=== PATIENT | female | born 1975 | race Caucasian/White ===

== ENCOUNTER 2017-10-21 09:41 | Emergency (ER) | payer MEDICAID, SELFPAY ==
[2017-10-21] VITALS (44 sets, daily range): BP systolic 125–146; BP diastolic 72–86; PULSE 48–83; RESP 8–23; TEMP 37; O2SAT 91–99
--- NOTE | 2017-10-21 10:18 | W.ED.GENAD ---
Discharge Plan Discharge Details Chief Complaint: Cellulitis Clinical Impression: Cellulitis of breast, Chest pain, Hypothyroidism Reason For Visit: CHEST PAIN/SWOLLEN BREAST Primary Care Provider: Roxanne Taveras V ED Provider: Karyn Bullock Disposition Patient Disposition: HOME Condition: Stable Home Meds and New Rx's Prescriptions: New levothyroxine 112 mcg capsule 112 mcg PO DAILY Qty: 30 RF: 0 dicloxacillin 500 mg capsule 500 mg PO Q6H 10 Days Qty: 40 RF: 0 Discontinued levothyroxine 112 MCG tablet 112 mcg PO DAILY RF: 0 No Action levonorgestrel [Mirena] 1 EACH intrauterine device 1 ea Intrauterine ONCE Qty: 1 RF: 0 Discharge Instructions Instructions: Levothyroxine (By mouth), Dicloxacillin (By mouth), Chest Pain (ED), Cellulitis (ED), Hypothyroidism (ED) Additional Instructions: Please return immediately to the emergency department if you develop any new or worsening symptoms or if he become otherwise concerned. It is extremely important that you are seen in follow-up by her primary care doctor tomorrow, for your chest pain to schedule a stress test for within the next 72 hours, for the skin infection of the breast, and for your hypothyroidism. Referrals: Roxanne Taveras MD [Primary Care Provider] - Discharge Data Discharge Date/Time-TO BE ENTERED AT DEPARTURE: 10/21/17 15:48 Medical Decision Making MDM Narrative Medical decision making narrative: Radha Hernandez is a 42 y/o woman with history of hypothyroidism presenting to the emergency department with right-sided breast pain for 1 week also with rash, worse last night. On exam patient has tender erythema circumferentially around the nipple of the right breast X, extending 10 cm from the nipple. There is mild induration surrounding the nipple but there is no fluctuance. There is no streaking. Patient without other rash. Systemically well and nontoxic appearing. Concern for breast cellulitis. Exam/history not consistent with sepsis. Plan for screening labs, dicloxacillin. EKG ordered from triage. Patient with elevated TSH, mild leukocytosis. On reevaluation patient reports to me that in addition to pain in the breast, she is also having chest pain. She reports that she has pain along that left parasternal border. Patient reports that over the past year she has had similar pain intermittently. She was told in the past that she should have a stress test for this by her PCP, but has not followed up. Patient reports that over the past month or 2 she has not had any of this left-sided chest pain, until approximately 1 week ago and the breast pain started. Patient reports the pain has been constant since it started 1 week ago, and never entirely remits. She reports that she has had constant pain in this area since she woke up this morning (greater than 4 hours) patient reports that the pain is improved when she pushes on it, and is somewhat worsened with change in position or exertion. Doubt ACS given change in position reproduces pain and when patient palpates the area her pain improves. Suspect musculoskeletal pain. Plan for repeat EKG, troponin, d-dimer. Trop okay. Repeat EKG unchanged. A diagnosis of pulmonary embolism was considered. ?Low clinical suspicion. ?D-Dimer negative. ?A low clinical suspicion with a negative D-Dimer makes the risk of PE <2% and I doubt PE as a disease process in this patient. Pt reports that she has not had levothyroxine in several months as she has had trouble getting the prescription refilled by her PCP. Plan for outpt f/u with PCP for further eval and skin check (to be seen here in ED for repeat eval of cellulitis if she is not seen by PCP within that time frame) and also for scheduling of stress test for this week. Rx for levothyroxine. Lengthy discussion with Pt re: RTED precautions and importance of outpt f/u as above. She is amenable to the plan. Medical Records Medical records reviewed: Yes I reviewed the patient's medical records. Lab Data Lab results reviewed: Yes I reviewed the patient's lab results. ECG Data Attestation: I personally reviewed and interpreted this ECG (s) as follows: Interpretation: EKG #1 shows normal sinus rhythm at 65 with normal axis, poor R-wave progression seen on prior 03/07, no STEMI. Nondiagnostic EKG EKG #2 shows sinus bradycardia at 54 with normal axis, no change from prior. No STEMI EKG #3 shows normal sinus rhythm at 60 with normal axis, no change from prior. No STEMI HPI - General Adult General Date/Time Provider Initiated Documentation: 10/21/17 10:07. Limitations to Documentation: no limitations. Information obtained by: patient and RN notes reviewed. HPI Narrative-FOR DICTATION ONLY HPI Narrative: Radha Hernandez is a 42-year-old woman with history of hypothyroidism presented to the emergency department with breast pain and rash. Patient reports that approximate 1 week ago she noticed pain in her left breast around her nipple. At that time she thought that she had possibly hit her breast against something while at work, although there was no certain inciting factor. Patient reports that she noticed that her pain seem much worse yesterday with redness around the nipple. Pain and redness progressed today. She denies any drainage from the nipple. Left breast is asymptomatic. No chest pain other than pain in the right breast around the and at the nipple. No nipple discharge. She feels otherwise in her usual state of health with no other pain, no SOB, no fever, no vomiting/diarrhea no other rash, normal appetite, no recent illnesses. Related Data Home Medications Medication Instructions Recorded Confirmed levonorgestrel [Mirena] 1 ea INTRAUTERINE ONCE #1 implant 12/27/14 10/22/17 Previous Rx's Medication Instructions Recorded dicloxacillin 500 mg PO Q6H 10 Days #40 cap 10/21/17 levothyroxine 112 mcg PO DAILY #30 cap 10/21/17 Allergies Allergy/AdvReac Type Severity Reaction Status Date / Time nicotine [From [facility]] AdvReac Intermediate Nightmares Unverified 10/21/17 09:51 General Stated Complaint: Cellulitis ADRIEN: 3 Review of Systems Constitutional Denies chills and Denies fever(s) Eyes Patient Denies eye pain ENT Denies dental pain, Denies facial pain and Denies sore throat Cardiovascular Denies chest pain, Denies edema, Denies leg edema and Denies dyspnea Respiratory Denies cough and Denies dyspnea Gastrointestinal Denies abdominal pain, Denies diarrhea, Denies nausea and Denies vomiting Musculoskeletal Denies myalgias, Denies arthralgias, Denies numbness and Denies tingling Integumentary/Breasts Reports rash (see HPI) Neurologic Denies numbness and Denies tingling Endocrine Denies polyphagia and Denies polydipsia PFSH Family History Mother Heart disease Father Heart disease Hyperlipidemia Grandfather Personal history of malignant neoplasm Maternal Aunt Personal history of malignant neoplasm Medical History DJD (degenerative joint disease) of cervical spine Hyperlipemia Hypothyroid Obesity Social History Smoking/Tobacco Use Status: Current every day alcohol intake: never substance use type: does not use Exam Const General: cooperative, not in acute distress and other (Nontoxic, pleasant, conversing normally) Orientation: alert [facility] Head: normal to inspection, normocephalic and atraumatic Face and sinus: normal facial exam Mouth: moist mucous membranes Eyes Conjunctivae: conjunctivae normal Sclera: sclerae normal Pupils: pupil size (3 mm bilaterally) Neck Neck: normal visual inspection and trachea midline Chest Breast palpation: other (Right breast with circumferential erythema surrounding the nipple, radius approximately 10 cm. Mild induration surrounding the nipple without fluctuance. There is no drainage from the nipple. Exam of the left breast is normal.) Resp Effort & Inspection: normal respiratory effort and no respiratory distress Auscultation: clear to auscultation bilaterally Cardio Rate: regular rate Rhythm: regular rhythm Heart Sounds: no murmurs GI Inspection: non-distended Palpation: soft and nontender Skin General skin exam: no rashes or lesions noted (Please see chest exam otherwise no rash) Neuro General: alert and other (Normal tone, grossly nonfocal) Psych Appearance: grossly normal Mood: congruent mood Affect: normal affect Course Vital Signs Temperature 37.0 C 10/21/17 09:46 Pulse 70 10/21/17 09:46 Respiratory Rate 14 10/21/17 09:46 Blood Pressure 139/76 10/21/17 09:46 Pulse Oximetry 99 10/21/17 09:46 Temperature 37.0 C 10/21/17 09:46 Pulse 70 10/21/17 09:46 Respiratory Rate 14 10/21/17 09:46 Blood Pressure 139/76 10/21/17 09:46 Pulse Oximetry 99 10/21/17 09:46
--- NOTE | 2017-10-21 10:30 | ED.GENADUL_ITS ---
Discharge Plan Discharge Details Chief Complaint: Cellulitis Clinical Impression: Cellulitis of breast, Chest pain, Hypothyroidism Reason For Visit: CHEST PAIN/SWOLLEN BREAST Primary Care Provider: Roxanne Taveras V ED Provider: Karyn Bullock Disposition Patient Disposition: HOME Condition: Stable Home Meds and New Rx's Prescriptions: New levothyroxine 112 mcg capsule 112 mcg PO DAILY Qty: 30 RF: 0 dicloxacillin 500 mg capsule 500 mg PO Q6H 10 Days Qty: 40 RF: 0 Discontinued levothyroxine 112 MCG tablet 112 mcg PO DAILY RF: 0 No Action levonorgestrel [Mirena] 1 EACH intrauterine device 1 ea Intrauterine ONCE Qty: 1 RF: 0 Discharge Instructions Instructions: Levothyroxine (By mouth), Dicloxacillin (By mouth), Chest Pain ( ED), Cellulitis (ED), Hypothyroidism (ED) Additional Instructions: Please return immediately to the emergency department if you develop any new or worsening symptoms or if he become otherwise concerned. It is extremely important that you are seen in follow-up by her primary care doctor tomorrow, for your chest pain to schedule a stress test for within the next 72 hours, for the skin infection of the breast, and for your hypothyroidism. Referrals: Roxanne Taveras MD [Primary Care Provider] - Discharge Data Discharge Date/Time-TO BE ENTERED AT DEPARTURE: 10/21/17 15:48 Medical Decision Making MDM Narrative Medical decision making narrative: Radha Hernandez is a 42 y/o woman with history of hypothyroidism presenting to the emergency department with right- sided breast pain for 1 week also with rash, worse last night. On exam patient has tender erythema circumferentially around the nipple of the right breast X, extending 10 cm from the nipple. There is mild induration surrounding the nipple but there is no fluctuance. There is no streaking. Patient without other rash. Systemically well and nontoxic appearing. Concern for breast cellulitis. Exam/history not consistent with sepsis. Plan for screening labs, dicloxacillin. EKG ordered from triage. Patient with elevated TSH, mild leukocytosis. On reevaluation patient reports to me that in addition to pain in the breast, she is also having chest pain. She reports that she has pain along that left parasternal border. Patient reports that over the past year she has had similar pain intermittently. She was told in the past that she should have a stress test for this by her PCP, but has not followed up. Patient reports that over the past month or 2 she has not had any of this left-sided chest pain, until approximately 1 week ago and the breast pain started. Patient reports the pain has been constant since it started 1 week ago, and never entirely remits. She reports that she has had constant pain in this area since she woke up this morning (greater than 4 hours ) patient reports that the pain is improved when she pushes on it, and is somewhat worsened with change in position or exertion. Doubt ACS given change in position reproduces pain and when patient palpates the area her pain improves. Suspect musculoskeletal pain. Plan for repeat EKG, troponin, d-dimer. Trop okay. Repeat EKG unchanged. A diagnosis of pulmonary embolism was considered. ?Low clinical suspicion. ?D-Dimer negative. ?A low clinical suspicion with a negative D-Dimer makes the risk of PE <2% and I doubt PE as a disease process in this patient. Pt reports that she has not had levothyroxine in several months as she has had trouble getting the prescription refilled by her PCP. Plan for outpt f/u with PCP for further eval and skin check (to be seen here in ED for repeat eval of cellulitis if she is not seen by PCP within that time frame) and also for scheduling of stress test for this week. Rx for levothyroxine. Lengthy discussion with Pt re: RTED precautions and importance of outpt f/u as above. She is amenable to the plan. Medical Records Medical records reviewed: Yes I reviewed the patient's medical records. Lab Data Lab results reviewed: Yes I reviewed the patient's lab results. ECG Data Attestation: I personally reviewed and interpreted this ECG (s) as follows: Interpretation: EKG #1 shows normal sinus rhythm at 65 with normal axis, poor R- wave progression seen on prior 03/07, no STEMI. Nondiagnostic EKG EKG #2 shows sinus bradycardia at 54 with normal axis, no change from prior. No STEMI EKG #3 shows normal sinus rhythm at 60 with normal axis, no change from prior. No STEMI HPI - General Adult General Date/Time Provider Initiated Documentation: 10/21/17 10:07 . Limitations to Documentation: no limitations . Information obtained by: patient and RN notes reviewed . HPI Narrative-FOR DICTATION ONLY HPI Narrative: Radha Hernandez is a 42-year-old woman with history of hypothyroidism presented to the emergency department with breast pain and rash. Patient reports that approximate 1 week ago she noticed pain in her left breast around her nipple. At that time she thought that she had possibly hit her breast against something while at work, although there was no certain inciting factor. Patient reports that she noticed that her pain seem much worse yesterday with redness around the nipple. Pain and redness progressed today. She denies any drainage from the nipple. Left breast is asymptomatic. No chest pain other than pain in the right breast around the and at the nipple. No nipple discharge. She feels otherwise in her usual state of health with no other pain, no SOB, no fever, no vomiting/diarrhea no other rash, normal appetite, no recent illnesses. Related Data Home Medications Medication Instructions Recorded Confirmed levonorgestrel [Mirena] 1 ea INTRAUTERINE ONCE #1 implant 12/27/14 10/22/17 Previous Rx's Medication Instructions Recorded dicloxacillin 500 mg PO Q6H 10 Days #40 cap 10/21/17 levothyroxine 112 mcg PO DAILY #30 cap 10/21/17 Allergies Allergy/AdvReac Type Severity Reaction Status Date / Time nicotine [From [facility]] AdvReac Intermediate Nightmares Unverified 10/21/17 09:51 General Stated Complaint: Cellulitis ADRIEN: 3 Review of Systems Constitutional Denies chills and Denies fever(s) Eyes Patient Denies eye pain ENT Denies dental pain, Denies facial pain and Denies sore throat Cardiovascular Denies chest pain, Denies edema, Denies leg edema and Denies dyspnea Respiratory Denies cough and Denies dyspnea Gastrointestinal Denies abdominal pain, Denies diarrhea, Denies nausea and Denies vomiting Musculoskeletal Denies myalgias, Denies arthralgias, Denies numbness and Denies tingling Integumentary/Breasts Reports rash (see HPI) Neurologic Denies numbness and Denies tingling Endocrine Denies polyphagia and Denies polydipsia PFSH Family History Mother Heart disease Father Heart disease Hyperlipidemia Grandfather Personal history of malignant neoplasm Maternal Aunt Personal history of malignant neoplasm Medical History DJD (degenerative joint disease) of cervical spine Hyperlipemia Hypothyroid Obesity Social History Smoking/Tobacco Use Status: Current every day alcohol intake: never substance use type: does not use Exam Const General: cooperative, not in acute distress and other (Nontoxic, pleasant, conversing normally) Orientation: alert [facility] Head: normal to inspection, normocephalic and atraumatic Face and sinus: normal facial exam Mouth: moist mucous membranes Eyes Conjunctivae: conjunctivae normal Sclera: sclerae normal Pupils: pupil size (3 mm bilaterally) Neck Neck: normal visual inspection and trachea midline Chest Breast palpation: other (Right breast with circumferential erythema surrounding the nipple, radius approximately 10 cm. Mild induration surrounding the nipple without fluctuance. There is no drainage from the nipple. Exam of the left breast is normal.) Resp Effort & Inspection: normal respiratory effort and no respiratory distress Auscultation: clear to auscultation bilaterally Cardio Rate: regular rate Rhythm: regular rhythm Heart Sounds: no murmurs GI Inspection: non-distended Palpation: soft and nontender Skin General skin exam: no rashes or lesions noted (Please see chest exam otherwise no rash) Neuro General: alert and other (Normal tone, grossly nonfocal) Psych Appearance: grossly normal Mood: congruent mood Affect: normal affect Course Vital Signs Temperature 37.0 C 10/21/17 09:46 Pulse 70 10/21/17 09:46 Respiratory Rate 14 10/21/17 09:46 Blood Pressure 139/76 10/21/17 09:46 Pulse Oximetry 99 10/21/17 09:46 Temperature 37.0 C 10/21/17 09:46 Pulse 70 10/21/17 09:46 Respiratory Rate 14 10/21/17 09:46 Blood Pressure 139/76 10/21/17 09:46 Pulse Oximetry 99 10/21/17 09:46
[2017-10-21 10:44] LABS: Abs Immature Grans 0.02 k/cumm (0.0-0.09); Absolute Basophil Count 0.04 k/cumm (0.0-0.2); Absolute Monocyte Count 0.72 k/cumm (0.11-0.7); Absolute Neutrophil Count 8.26 k/cumm (1.2-6.7); Basophils % 0.4; Eosinophils % 0.9; HCT 44.6 % (36.0-46.0); HGB 15.1 g/dL (12.0-15.5); Immature Grans % 0.2; Lymphocytes % 18.2; Mean Corp. HGB Concentration 33.9 g/dL (32.0-36.0); Mean Corpuscular Hemoglobin 31.8 pg (27.0-33.0); Mean Corpuscular Volume 93.9 fL (80-95); Mean Platelet Volume 9.3 fL (8.0-11.0); Monocytes % 6.4; Neutrophils % 73.9; Platelet Count 304 x1000/uL (130-400); RBC 4.75 m/cumm (4.00-5.20); RBC Distribution Width 14.3 % (11.7-14.6); White Blood Cell Count 11.18 k/cumm (4.4-10.8)
[2017-10-21 10:45] LABS: Absolute Lymphocyte Count 2.03 k/cumm (1.2-3.4)
[2017-10-21 11:05] LABS: ALT 22 U/L (12-78); AST 15 U/L (15-37); Albumin 3.6 g/dL (3.4-5.0); Alkaline Phosphatase 66 U/L (46-116); Anion Gap 7.3 mmol/L (3-11); BUN 10 mg/dL (7-18); Bilirubin, Total 0.7 mg/dL (0.2-1.0); CO2 27.7 mmol/L (21.0-32.0); CREATININE 1.15 mg/dL (0.55-1.02); Calcium 8.3 mg/dL (8.5-10.1); Chloride 102 mmol/L (98-107); Glucose 96 mg/dL (70-100); Potassium 3.6 mmol/L (3.5-5.1); Sodium 137 mmol/L (136-145); TSH (W/Ref FT4) 92.44 uIU/mL (0.358-3.74)
[2017-10-21 11:24] LABS: FREE T4 0.39 ng/dL (0.76-1.46)
[2017-10-21] MEDS: Aspirin 81 MG CHEW 324 MG CH (13:06)
[2017-10-21 13:09] LABS: Troponin I < 0.02 ng/mL (0.00-0.06)
[2017-10-21 13:21] LABS: D-Dimer 486 ng/mlFEU (<500)
--- NOTE | 2017-10-21 13:51 | DI.RAD_ITS ---
SYMPTOMS/DIAGNOSIS: CHEST PAIN, SWOLLEN BREAST PA AND LATERAL CHEST: Comparison is made with March,. A pectus excavatum deformity is again noted. The heart size is normal. The lungs are clear. No infiltrate, effusion or pneumothorax is seen. IMPRESSION: Negative chest x-ray.
--- NOTE | 2017-10-21 14:44 | DI.VRAD_ITS ---
EXAM: XR Chest, 2 Views CLINICAL HISTORY: 42 years old, female; Signs and symptoms; Other: Chest pain TECHNIQUE: Frontal and lateral views of the chest. COMPARISON: CR - CHEST 2 VIEWS PA,LAT 03/28/2016 10:14 AM FINDINGS: The lung mcnamara are clear bilaterally. The cardiomediastinal silhouette is within normal limits. The costophrenic angles are sharp. The bony structures are unremarkable with the exception of a mild pectus excavatum. IMPRESSION: No definite evidence of acute cardiopulmonary disease. Dictated and Authenticated by: Darnell Medina MD. Ordering:JERZY YORK MD
--- NOTE | 2017-10-21 15:30 | PDOC.ERCMPRO ---
Care Management Progress Note 10/21-Dr. Karyn Bullock requested assistance with a PCP (Darcy) f/u tomorrow, 10/22/17, for breast infections and chest pain. Patient will need stress test ordered. Patient does not have a phone. This CM met with Radha who states that she will call [facility] tomorrow at 9 am for an appt. Referral with all the above information was faxed to [facility] today.
--- NOTE | 2017-10-21 15:35 | CMPROGNOTE_ITS ---
Care Management Progress Note 10/21-Dr. Karyn Bullock requested assistance with a PCP (Darcy) f/u tomorrow, , for breast infections and chest pain. Patient will need stress test ordered. Patient does not have a phone. This CM met with Radha who states that she will call [facility] tomorrow at 9 am for an appt. Referral with all the above information was faxed to [facility] today.
== END 2017-10-21 15:48 | disposition home or self-care (01) ==
PROVIDERS: Emergency Provider Student in an Organized Health Care Education/Training Program; PCP Family Medicine
DX: N61.0 Mastitis without abscess (principal); R07.9 Chest pain, unspecified; E03.9 Hypothyroidism, unspecified
CPT/HCPCS: 36415; 80053; 81025; 87040; 93005; 99285; 71046; 84439; 84443; 84484; 85025; 85379; 93010

== ENCOUNTER 2017-10-22 21:07 | Observation (INO) | payer MEDICAID, SELFPAY ==
[2017-10-22 21:11] VITALS: BP 137/86; PULSE 85; RESP 16; TEMP 36.6; O2SAT 98
[2017-10-22] MEDS: Ketorolac 30 MG/ML VIAL IVP (21:30)
[2017-10-22] MEDS: MORPHine 10 MG/ML VIAL 4 MG IVP (21:30)
[2017-10-22] MEDS: Acetaminophen 500 MG TAB 1000 MG PO (21:30)
[2017-10-22 21:46] LABS: Abs Immature Grans 0.03 k/cumm (0.0-0.09); Absolute Lymphocyte Count 2.96 k/cumm (1.2-3.4); Absolute Monocyte Count 0.59 k/cumm (0.11-0.7); Absolute Neutrophil Count 10.55 k/cumm (1.2-6.7); Basophils % 0.4; Eosinophils % 0.7; HGB 14.9 g/dL (12.0-15.5); Immature Grans % 0.2; Lactate-non-spesis 1.2 mmol/L (0.6-1.4); Lymphocytes % 20.7; Mean Corp. HGB Concentration 33.9 g/dL (32.0-36.0); Mean Corpuscular Hemoglobin 31.2 pg (27.0-33.0); Mean Corpuscular Volume 92.2 fL (80-95); Mean Platelet Volume 9.6 fL (8.0-11.0); Monocytes % 4.1; Neutrophils % 73.9; Platelet Count 341 x1000/uL (130-400); RBC 4.77 m/cumm (4.00-5.20); RBC Distribution Width 14.3 % (11.7-14.6); White Blood Cell Count 14.28 k/cumm (4.4-10.8)
[2017-10-22 21:47] LABS: Absolute Basophil Count 0.06 k/cumm (0.0-0.2)
[2017-10-22 22:02] LABS: ALT 20 U/L (12-78); AST 25 U/L (15-37); Alkaline Phosphatase 72 U/L (46-116); Anion Gap 2.5 mmol/L (3-11); BUN 8 mg/dL (7-18); Bilirubin, Total 1.1 mg/dL (0.2-1.0); CO2 30.5 mmol/L (21.0-32.0); CREATININE 0.96 mg/dL (0.55-1.02); Calcium 9.1 mg/dL (8.5-10.1); Chloride 100 mmol/L (98-107); Glucose 84 mg/dL (70-100); Potassium 3.8 mmol/L (3.5-5.1); Sodium 133 mmol/L (136-145); Total Protein 8.1 g/dL (6.4-8.2)
[2017-10-22] MEDS: VANCOMYCIN 1,500 MG in Normal Saline 500 ML 167 MG IVPB (22:34)
[2017-10-22 22:40] VITALS: BP 137/86; PULSE 85; RESP 16; TEMP 36.6; O2SAT 98
[2017-10-22 22:59] VITALS: BP 129/80; PULSE 56; RESP 16; TEMP 36.2; O2SAT 98
--- NOTE | 2017-10-23 00:25 | W.ED.GENAD ---
Discharge Plan Discharge Details Chief Complaint: Cellulitis Clinical Impression: Failure of outpatient treatment, Abscess of breast, left, Cellulitis of left breast Reason For Visit: INFECTION HAS GOTTEN WORSE Admit Date/Time: 10/22/17 22:45 Admit Provider: Neida Hardy Attending Provider: Neida Hardy Primary Care Provider: Roxanne Taveras V ED Provider: Aris Hdz Disposition Patient Disposition: [facility] INPATIENT Condition: Good Discharge Data Discharge Date/Time-TO BE ENTERED AT DEPARTURE: 10/22/17 22:40 Medical Decision Making Lab Data This is a pleasant 42-year-old female who presents for worsening cellulitis and infection in her left breast. She was seen and assessed yesterday demonstrated infection in her left breast. She was discharged with doxycycline. She is taking 4 total doses and has had notable worsening of pain, symptoms, and noticeable redness spreading out of the line of demarcation as previously noted on her prior visit. She has no fever, or chills, but does demonstrate a concerning physical exam with a notable palpable abscess, as confirmed by ultrasound. Repeat labs ordered, repeat blood cultures were drawn. Patient's was given IV fluids, Toradol, Tylenol, and morphine. We did contact Dr. Hardy and discussed the case with her, as well as my concern for worsening symptoms in spite of oral antibiotic therapy, interpreted as failed outpatient management. She agreed with the need for incision and drainage, as well as keeping the patient overnight for 24 hours of IV antibiotics. I have started the patient on vancomycin. The patient's abscess was incised and drained in the emergency department and a very large amount of pus was exuded. The patient will be kept overnight for 24 hours of IV antibiotics, and repeat assessment. A new line of demarcation was drawn around the area of current erythema. Patient will be admitted to Dr. Hardy. I have extensively reviewed the treatment plan with the patient. I have addressed all patient concerns at this time. I have also discussed the plan with the admitting physician and they agree with the current assessment and plan and have agreed to assume responsibility for the patient. All parties demonstrate verbal understanding and agreement with our assessment and plan at this time. Lab Results 10/22/17 10/22/17 10/22/17 Range/Units 21:35 21:35 21:35 WBC 14.28 H (4.4-10.8) k/cumm RBC 4.77 (4.00-5.20) m/cumm Hgb 14.9 (12.0-15.5) g/dL Hct 44.0 (36.0-46.0) % MCV 92.2 (80-95) fL MCH 31.2 (27.0-33.0) pg MCHC 33.9 (32.0-36.0) g/dL RDW 14.3 (11.7-14.6) % Plt Count 341 (130-400) x1000/uL MPV 9.6 (8.0-11.0) fL Immature Gran % 0.2 Neutrophils % 73.9 Lymphocytes % 20.7 Monocytes % 4.1 Eosinophils % 0.7 Basophils % 0.4 Absolute Neutrophils 10.55 H (1.2-6.7) k/cumm Absolute Lymphocytes 2.96 (1.2-3.4) k/cumm Absolute Monocytes 0.59 (0.11-0.7) k/cumm Absolute Eosinophils 0.10 (0.0-0.7) k/cumm Absolute Basophils 0.06 (0.0-0.2) k/cumm Sodium 133 L (136-145) mmol/L Potassium 3.8 (3.5-5.1) mmol/L Chloride 100 (98-107) mmol/L Carbon Dioxide 30.5 (21.0-32.0) mmol/L Anion Gap 2.5 L (3-11) mmol/L BUN 8 (7-18) mg/dL Creatinine 0.96 (0.55-1.02) mg/dL Estimated GFR/1.73 m2 >= 60.00 (mL/min/1.73m2) Glucose 84 (70-100) mg/dL Lactate 1.2 (0.6-1.4) mmol/L Calcium 9.1 (8.5-10.1) mg/dL Total Bilirubin 1.1 H (0.2-1.0) mg/dL AST 25 (15-37) U/L ALT 20 (12-78) U/L Alkaline Phosphatase 72 (46-116) U/L Total Protein 8.1 (6.4-8.2) g/dL Albumin 4.0 (3.4-5.0) g/dL This is a 42-year-old female with no significant past medical history except for thyroid disease for which she takes levothyroxine, as well as the Mirena device, who presents today for evaluation of left breast abscess. The patient was here yesterday, and relatively benign workup and was treated with doxycycline for home use. She has been taking doxycycline as directed and has had a total of 4 doses. In spite of this she has had worsening pain, and spreading of the redness. Patient states that the pain is a stabbing aching sensation in the tip of her left breast at the nipple. There is no discharge from the breast. The redness is circumferential, and spreading towards the superior aspect of the breast. She denies any fever or chills. Pain is made worse with palpation and movement. It is improved by nothing. She denies any other associated signs or symptoms. She denies any chest pain, cough, fever, chills, history of breast cancer, nipple discharge, trauma, or IV drug use in the area. Patient denies IV or illicit drugs. Patient denies any other pertinent family history. She has no other complaints at this time. HPI - General Adult General Date/Time Provider Initiated Documentation: 10/22/17 21:09. Related Data Home Medications Medication Instructions Recorded Confirmed levonorgestrel [Mirena] 1 ea INTRAUTERINE ONCE #1 implant 12/27/14 10/22/17 Previous Rx's Medication Instructions Recorded dicloxacillin 500 mg PO Q6H 10 Days #40 cap 10/21/17 levothyroxine 112 mcg PO DAILY #30 cap 10/21/17 Allergies Allergy/AdvReac Type Severity Reaction Status Date / Time [facility] AdvReac Intermediate Nightmares Unverified 10/21/17 09:51 General Stated Complaint: Cellulitis ADRIEN: 4 Review of Systems Review of Systems 10 point review of systems was performed, pertinent positives and negatives are noted in the history of present illness. PFSH Family History Mother Heart disease Father Heart disease Hyperlipidemia Grandfather Personal history of malignant neoplasm Maternal Aunt Personal history of malignant neoplasm Medical History DJD (degenerative joint disease) of cervical spine Hyperlipemia Hypothyroid Obesity Social History Smoking/Tobacco Use Status: Current every day alcohol intake: never substance use type: does not use Exam Narrative Exam Narrative: 1.Const: Well-nourished, Well-developed, appearing stated age 2.Eyes: PERRL, no conjunctival injection, and symmetrical lids. 3.ENT: Atraumatic external nose and ears. Moist MM. Neck: Symmetric, trachea midline, No thyromegaly. 4.CVS: +S1/S2, No murmurs or gallops. Peripheral pulses 2+ and equal in all extremities. Brisk capillary refill in all extremities. 5.RESP: Unlabored respiratory effort. Clear to auscultation bilaterally. No wheezes rales or rhonchi 6.GI: Soft, Nontender/Nondistended, No hepatosplenomegaly. No guarding or rebound. 7.MSK: Normocephalic/Atraumatic, Extremities w/o deformity or ttp No cyanosis or clubbing, Normal movement of all extremities 8.Skin: Warm, Dry. The patient's left breast demonstrates notable firmness, with area of concerning fluctuance at the 12 o'clock position of the nipple. Under the areola. Bedside ultrasound demonstrates a large abscess in this area roughly 4-5 cm across, 2 cm deep, and 2 cm high. There is radiating erythema traveling up the breast past the initial line that was drawn in to demarcate the previous area of erythema. Notable warmth in this area. Notable tenderness on palpation. No inversion of the nipple. No nipple discharge. Right breast is unremarkable 9.Neuro: writing manager II-XII grossly intact. Sensation grossly intact, no focal neurologic deficits. 10.Psych: (AAO) x3. Appropriate mood and affect Course Vital Signs Temperature 36.6 C 10/22/17 21:11 Pulse 85 10/22/17 21:11 Respiratory Rate 16 10/22/17 21:11 Blood Pressure 137/86 10/22/17 21:11 Pulse Oximetry 98 10/22/17 21:11 Temperature 36.2 C L 10/22/17 22:59 Pulse 56 L 10/22/17 22:59 Respiratory Rate 16 10/22/17 22:59 Blood Pressure 129/80 10/22/17 22:59 Pulse Oximetry 98 10/22/17 22:59 Lab/Test Results Lab/Test Results: Laboratory Tests 10/22/17 10/22/17 10/22/17 21:35 21:35 21:35 WBC 14.28 H RBC 4.77 Hgb 14.9 Hct 44.0 MCV 92.2 MCH 31.2 MCHC 33.9 RDW 14.3 Plt Count 341 MPV 9.6 Immature Gran % 0.2 Neutrophils % 73.9 Lymphocytes % 20.7 Monocytes % 4.1 Eosinophils % 0.7 Basophils % 0.4 Absolute Neutrophils 10.55 H Absolute Lymphocytes 2.96 Absolute Monocytes 0.59 Absolute Eosinophils 0.10 Absolute Basophils 0.06 Sodium 133 L Potassium 3.8 Chloride 100 Carbon Dioxide 30.5 Anion Gap 2.5 L BUN 8 Creatinine 0.96 Estimated GFR/1.73 m2 >= 60.00 Glucose 84 Lactate 1.2 Calcium 9.1 Total Bilirubin 1.1 H AST 25 ALT 20 Alkaline Phosphatase 72 Total Protein 8.1 Albumin 4.0 Procedures Other Description: Time out was taken to identify the correct patient, procedure, and site. Risks and benefits were discussed with the patient and consent was obtained. Ultrasound was used to locate the site of maximal fluid collection. The site was sterilized and draped in the typical fashion. Lidocaine with epinephrine 1% 10ml was instilled into the surrounding tissue. Appropriate analgesia was obtained. The abscess was incised with an 11 blade, and a notably large amount purulent material and blood were expressed. The wound was flushed with sterile saline under pressure irrigation. The wound was packed, cleaned, and dressed. Blood loss was minimal. The patient tolerated the procedure well. There were no complications
[2017-10-23 04:18] VITALS: BP 96/57; PULSE 74; RESP 17; TEMP 35.9; O2SAT 97
[2017-10-23 07:30] VITALS: BP 136/79; PULSE 77; RESP 18; TEMP 36.9; O2SAT 96
[2017-10-23] MEDS: Acetaminophen 325 MG TAB 650 MG PO ×4 (10:01→22:42)
[2017-10-23] MEDS: Heparin 5,000 UNITS/ML VIAL 5000 UNITS SC ×2 (10:01→19:21)
[2017-10-23] MEDS: Ketorolac 30 MG/ML VIAL 15 MG IVP ×3 (10:02→22:42)
[2017-10-23] MEDS: Normal Saline Flush 10 ML SYR IVP ×3 (10:02→22:43)
[2017-10-23] MEDS: VANCOMYCIN 1,000 MG in Normal Saline 250 ML 166.667 MG IVPB (10:36)
[2017-10-23 11:45] VITALS: BP 120/72; PULSE 56; RESP 20; TEMP 37.2; O2SAT 98
--- NOTE | 2017-10-23 11:53 | W.PM.HP.N ---
Date of service: 10/23/17 Time of Service: 11:53 Assessment and Plan (1) Breast abscess of female: Current visit: Yes Status: Acute Problem details: Abscess drained, will observe for 24 hours given the extent of erythema. Continue vancomycin and zosyn while awaiting cultures History of Present Illness Chief Complaint: Breast Abscess Narrative: 42-year-old woman presenting to the emergency room with left breast abscess. She reported about a week's worth of left breast tenderness progressively worsening, until her presentation to the emergency room 2 days ago. On her initial presentation to the emergency room she was started on antibiotics. She returned last night due to worsening pain and increased redness of the breast. An I&D of the abscess was performed and cultures obtained. She was started on vancomycin. Surgery was consulted. Review of Systems Constitutional Denies body ache(s), Denies chills, Denies fever(s), Denies headache(s), Reports malaise and Denies weakness Eyes Patient Reports system reviewed and no additional complaints, except as docu ENT Denies abnormal hearing, Denies dental pain, Denies vertigo, Denies dizziness, Denies headache(s), Denies hoarseness, Denies epistaxis, Denies throat swelling and Denies tongue swelling Cardiovascular Denies chest pain, Denies chest pain at rest, Denies palpitations, Denies dyspnea and Denies dyspnea on exertion Respiratory Denies chest congestion, Denies cough, Denies dyspnea, Denies dyspnea on exertion and Denies wheezing Gastrointestinal Denies abdominal pain, Denies cramping, Denies early satiety, Denies dyspepsia, Denies diarrhea, Denies loose stools and Denies nausea Genitourinary Denies dysuria, Denies urinary incontinence, Denies urinary hesitancy and Denies urinary urgency Musculoskeletal Denies back pain, Denies myalgias, Denies arthralgias, Denies muscle weakness and Denies numbness Integumentary/Breasts Reports breast swelling, Reports breast skin changes, Reports breast pain and Reports skin pain Neurologic Denies abnormal hearing, Denies behavioral changes, Denies vertigo, Denies dizziness, Denies headache(s), Denies numbness, Denies convulsions, Denies seizure-like activity and Denies weakness Psychiatric Denies abnormal sleep pattern, Denies anxiety, Denies behavioral changes, Denies depression and Denies difficulty concentrating Endocrine Reports cold intolerance, Reports deepening of the voice and Denies palpitations Hematologic/Lymphatic Denies easy bleeding and Denies easy bruising Allergic/Immunologic Denies throat swelling, Denies tongue swelling and Denies wheezing PFSH Family History Mother Heart disease Father Heart disease Hyperlipidemia Grandfather Personal history of malignant neoplasm Maternal Aunt Personal history of malignant neoplasm Medical History DJD (degenerative joint disease) of cervical spine Hyperlipemia Hypothyroid Obesity Social History Smoking/Tobacco Use Status: Current every day alcohol intake: never substance use type: does not use Meds Home Medications Medication Instructions Recorded Confirmed Type levonorgestrel [Mirena] 1 ea INTRAUTERINE ONCE #1 implant 12/27/14 10/22/17 History Allergies Allergy/AdvReac Type Severity Reaction Status Date / Time nicotine [From [facility]] AdvReac Intermediate Nightmares Unverified 10/21/17 09:51 Exam Const General: cooperative, well developed and acute distress mild Nutritional Appearance: overweight HENMT Head: normal to inspection, normocephalic and atraumatic Ears: hearing grossly normal bilaterally General nose exam: external nose normal and nasal mucous membranes and turbinates normal Face and sinus: normal facial exam Mouth: lip normal, moist mucous membranes and no drooling Eyes General: appearance normal, both eyes and all related structures Alignment and Position: alignment normal Conjunctivae: conjunctivae normal Sclera: sclerae normal Pupils: PERRL EOM: EOM intact bilaterally Neck Neck: trachea midline, supple and nontender Chest Chest: normal inspection of the chest and tenderness Breast inspection: abnormal inspection of the breast (induration, erthema of left breast) Chest/axillae images: 1. I&D 2. Area of erythema Resp Effort & Inspection: normal respiratory effort, no audible wheezes and not labored Cardio Rate: regular rate Rhythm: regular rhythm Neuro General: alert, awake, oriented x3 and CN's II-XI intact bilaterally Psych Appearance: grossly normal Mental Status: mental status grossly normal Affect: normal affect Attitude: cooperative Thought Content: normal Judgment: judgment good Results Labs : 10/23/17 13:03 10/22/17 21:35 Abnormal lab results 10/22/17 10/22/17 Range/Units 21:35 21:35 WBC 14.28 H (4.4-10.8) k/cumm Absolute Neutrophils 10.55 H (1.2-6.7) k/cumm Sodium 133 L (136-145) mmol/L Anion Gap 2.5 L (3-11) mmol/L Total Bilirubin 1.1 H (0.2-1.0) mg/dL Diabetes panel 10/22/17 Range/Units 21:35 Sodium 133 L (136-145) mmol/L Potassium 3.8 (3.5-5.1) mmol/L Chloride 100 (98-107) mmol/L Carbon Dioxide 30.5 (21.0-32.0) mmol/L BUN 8 (7-18) mg/dL Creatinine 0.96 (0.55-1.02) mg/dL Glucose 84 (70-100) mg/dL Calcium 9.1 (8.5-10.1) mg/dL AST 25 (15-37) U/L ALT 20 (12-78) U/L Alkaline Phosphatase 72 (46-116) U/L Total Protein 8.1 (6.4-8.2) g/dL Albumin 4.0 (3.4-5.0) g/dL Calcium panel 10/22/17 Range/Units 21:35 Calcium 9.1 (8.5-10.1) mg/dL Albumin 4.0 (3.4-5.0) g/dL Pituitary panel 10/22/17 Range/Units 21:35 Sodium 133 L (136-145) mmol/L Potassium 3.8 (3.5-5.1) mmol/L Chloride 100 (98-107) mmol/L Carbon Dioxide 30.5 (21.0-32.0) mmol/L BUN 8 (7-18) mg/dL Creatinine 0.96 (0.55-1.02) mg/dL Glucose 84 (70-100) mg/dL Calcium 9.1 (8.5-10.1) mg/dL Adrenal panel 10/22/17 Range/Units 21:35 Sodium 133 L (136-145) mmol/L Potassium 3.8 (3.5-5.1) mmol/L Chloride 100 (98-107) mmol/L Carbon Dioxide 30.5 (21.0-32.0) mmol/L BUN 8 (7-18) mg/dL Creatinine 0.96 (0.55-1.02) mg/dL Glucose 84 (70-100) mg/dL Calcium 9.1 (8.5-10.1) mg/dL Total Bilirubin 1.1 H (0.2-1.0) mg/dL AST 25 (15-37) U/L ALT 20 (12-78) U/L Alkaline Phosphatase 72 (46-116) U/L Total Protein 8.1 (6.4-8.2) g/dL Albumin 4.0 (3.4-5.0) g/dL Laboratory Tests 10/22/17 10/22/17 10/22/17 21:35 21:35 21:35 WBC 14.28 H RBC 4.77 Hgb 14.9 Hct 44.0 MCV 92.2 MCH 31.2 MCHC 33.9 RDW 14.3 Plt Count 341 MPV 9.6 Immature Gran % 0.2 Neutrophils % 73.9 Lymphocytes % 20.7 Monocytes % 4.1 Eosinophils % 0.7 Basophils % 0.4 Absolute Neutrophils 10.55 H Absolute Lymphocytes 2.96 Absolute Monocytes 0.59 Absolute Eosinophils 0.10 Absolute Basophils 0.06 Sodium 133 L Potassium 3.8 Chloride 100 Carbon Dioxide 30.5 Anion Gap 2.5 L BUN 8 Creatinine 0.96 Estimated GFR/1.73 m2 >= 60.00 Glucose 84 Lactate 1.2 Calcium 9.1 Total Bilirubin 1.1 H AST 25 ALT 20 Alkaline Phosphatase 72 Total Protein 8.1 Albumin 4.0
--- NOTE | 2017-10-23 12:44 | PDOC.CMIN ---
- If Service Date Differs Date of service: 10/23/17 Time of Service: 12:44 Care Management Initial Assess REASON FOR HOSPITALIZATION:: Left breast abscess PAST MEDICAL HISTORY/PAST SURGICAL HISTORY:: DJD, hyperlipdemia, hypothyroid, obesity PREVIOUS FUNCTIONAL STATUS/SOCIAL/FAMILY SUPPORTS:: Radha lives at the [facility] in [place], [place] her SO is Jonas. She has a daughter who lives with her Father in [place], [place]. 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 She uses [employer] or friends for transportation. CURRENT FUNCTIONAL STATUS:: Radha is alert and engaged during CM assessment. She states she went to the ED on Saturday and received antibiotic for her breast infection. She then noticed yesterday her nipple was darken and it appeared to her that the cellulitis was becoming worse. She returned to the ED and was admitted for IV antibiotics. She states she has not been taking her thyroid medication due to being unable to access her primary care. ADVANCE DIRECTIVES:: None on file at [facility] she does not want to complete at this time Has patient been provided with information about the portal?: Yes Did the patient sign up for the portal?: No CODE STATUS:: Full Code INSURANCE COVERAGE / FINANCIAL ISSUES:: Medicaid CURRENT HOME/COMMUNITY SERVICES/EQUIPMENT:: No current services PRIMARY CARE PHYSICIAN:: POTENTIAL DISCHARGE NEEDS:: Follow up appointment scheduled with primary care prior to discharge. PATIENT/FAMILY EDUCATION NEEDS:: Education related to medication, treatment and follow up plan of care. Including ask me three education and self management. ANTICIPATED BARRIERS TO DISCHARGE:: None identified TRANSPORTATION:: Via private car with friend or [employer] bus PLAN:: Radha is currently receiving IV antibiotics and fluids she remains observation at this time. She will discharge home when medically ready per provider.CM to continue to provide support to patient and care team discharge planning and disposition.
--- NOTE | 2017-10-23 12:56 | INITIAL_ITS ---
- If Service Date Differs Date of service: 10/23/17 Time of Service: 12:44 Care Management Initial Assess REASON FOR HOSPITALIZATION:: Left breast abscess PAST MEDICAL HISTORY/PAST SURGICAL HISTORY:: DJD, hyperlipdemia, hypothyroid, obesity PREVIOUS FUNCTIONAL STATUS/SOCIAL/FAMILY SUPPORTS:: Radha lives at the [facility] in [place], [place] her SO is Jonas. She has a daughter who lives with her Father in [place], [place]. 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 She uses [employer] or friends for transportation. CURRENT FUNCTIONAL STATUS:: Radha is alert and engaged during CM assessment. She states she went to the ED on Saturday and received antibiotic for her breast infection. She then noticed yesterday her nipple was darken and it appeared to her that the cellulitis was becoming worse. She returned to the ED and was admitted for IV antibiotics. She states she has not been taking her thyroid medication due to being unable to access her primary care. ADVANCE DIRECTIVES:: None on file at [facility] she does not want to complete at this time Has patient been provided with information about the portal?: Yes Did the patient sign up for the portal?: No CODE STATUS:: Full Code INSURANCE COVERAGE / FINANCIAL ISSUES:: Medicaid CURRENT HOME/COMMUNITY SERVICES/EQUIPMENT:: No current services PRIMARY CARE PHYSICIAN:: POTENTIAL DISCHARGE NEEDS:: Follow up appointment scheduled with primary care prior to discharge. PATIENT/FAMILY EDUCATION NEEDS:: Education related to medication, treatment and follow up plan of care. Including ask me three education and self management. ANTICIPATED BARRIERS TO DISCHARGE:: None identified TRANSPORTATION:: Via private car with friend or [facility] bus PLAN:: Radha is currently receiving IV antibiotics and fluids she remains observation at this time. She will discharge home when medically ready per provider.CM to continue to provide support to patient and care team discharge planning and disposition.
[2017-10-23 13:14] LABS: Abs Immature Grans 0.03 k/cumm (0.0-0.09); Absolute Basophil Count 0.04 k/cumm (0.0-0.2); Absolute Eosinophil Count 0.18 k/cumm (0.0-0.7); Absolute Lymphocyte Count 3.12 k/cumm (1.2-3.4); Absolute Monocyte Count 0.76 k/cumm (0.11-0.7); Absolute Neutrophil Count 10.47 k/cumm (1.2-6.7); Basophils % 0.3; Eosinophils % 1.2; HCT 40.5 % (36.0-46.0); HGB 13.4 g/dL (12.0-15.5); Immature Grans % 0.2; Lymphocytes % 21.4; Mean Corp. HGB Concentration 33.1 g/dL (32.0-36.0); Mean Corpuscular Hemoglobin 31.2 pg (27.0-33.0); Mean Corpuscular Volume 94.2 fL (80-95); Mean Platelet Volume 9.5 fL (8.0-11.0); Monocytes % 5.2; Neutrophils % 71.7; Platelet Count 282 x1000/uL (130-400); RBC Distribution Width 14.2 % (11.7-14.6)
[2017-10-23 14:04] LABS: C-Reactive Protein 7.88 mg/dL (0.0-0.3)
[2017-10-23 14:12] LABS: ESR 15 MM/HR (0-20)
[2017-10-23 15:54] VITALS: BP 151/82; PULSE 64; RESP 18; TEMP 37; O2SAT 98
--- NOTE | 2017-10-23 16:30 | PHARADMIT ---
Admission Pharmacy Clinical Review INFECTION HAS GOTTEN WORSE Code Status Full Code Current Weight 81.647 kg Renally Cleared and Narrow Therapeutic Index Meds CRCL ~79ML/MIN QTc Value / Action Taken BP Control, Fever 151/82 AFEBRILE Electrolytes reviewed Na 133 DVT Prophylaxis no Opiate Usage / Scheduled Bowel Regimen Ordered prn/no Plt/SCr for Heparin / Enoxaparin 282/0.96 INR for Warfarin na H/H stable, WBC/Bands 13.4/40.5 wbc 14.60 Antibiotic appropriateness vancomycin IV per pharmacy Cultures and Sensitivities Bc and abcess culture pending Surgical ABX d/c within 24 hr na DM control / Insulin Dosing na Heart Failure (Check EF%) (NOEMY's, B-Block, Diuretics) na IV to PO Switch Home Meds Reviewed ok Home Meds Not Ordered levothyroxine 112 mcg PO DAILY #30 cap 10/21/17 [Rx Confirmed 10/22/17] Comments
[2017-10-23] MEDS: Normal Saline 500 ML 30 ML IV (19:24)
[2017-10-23 19:55] VITALS: BP 152/82; PULSE 64; RESP 18; TEMP 37.3; O2SAT 98
[2017-10-23] MEDS: VANCOMYCIN 1,000 MG in Normal Saline 250 ML 166 MG IVPB (20:00)
[2017-10-24 00:30] VITALS: BP 148/86; PULSE 64; RESP 18; TEMP 37; O2SAT 98
[2017-10-24] MEDS: Normal Saline Flush 10 ML SYR IVP ×4 (01:12→13:33)
[2017-10-24] MEDS: Acetaminophen 325 MG TAB 650 MG PO ×3 (02:04→10:11)
[2017-10-24] MEDS: Heparin 5,000 UNITS/ML VIAL 5000 UNITS SC ×2 (02:05→10:12)
[2017-10-24] MEDS: VANCOMYCIN 1,000 MG in Normal Saline 250 ML 166.667 MG IVPB (04:55)
[2017-10-24] MEDS: Ketorolac 30 MG/ML VIAL 15 MG IVP ×2 (04:55→10:11)
[2017-10-24 07:17] LABS: Abs Immature Grans 0.02 k/cumm (0.0-0.09); Absolute Basophil Count 0.04 k/cumm (0.0-0.2); Absolute Eosinophil Count 0.22 k/cumm (0.0-0.7); Absolute Lymphocyte Count 3.41 k/cumm (1.2-3.4); Absolute Monocyte Count 0.87 k/cumm (0.11-0.7); Basophils % 0.4; HCT 40.8 % (36.0-46.0); HGB 13.3 g/dL (12.0-15.5); Immature Grans % 0.2; Lymphocytes % 30.5; Mean Corp. HGB Concentration 32.6 g/dL (32.0-36.0); Mean Corpuscular Hemoglobin 30.8 pg (27.0-33.0); Mean Corpuscular Volume 94.4 fL (80-95); Mean Platelet Volume 9.9 fL (8.0-11.0); Monocytes % 7.8; Neutrophils % 59.1; Platelet Count 269 x1000/uL (130-400); RBC 4.32 m/cumm (4.00-5.20); RBC Distribution Width 14.3 % (11.7-14.6); White Blood Cell Count 11.18 k/cumm (4.4-10.8)
[2017-10-24 07:22] LABS: Absolute Neutrophil Count 6.61 k/cumm (1.2-6.7)
[2017-10-24 07:25] VITALS: BP 138/74; PULSE 68; RESP 17; TEMP 36.6; O2SAT 98
[2017-10-24 07:26] LABS: Anion Gap 5.8 mmol/L (3-11); BUN 9 mg/dL (7-18); CO2 27.2 mmol/L (21.0-32.0); CREATININE 1.06 mg/dL (0.55-1.02); Chloride 105 mmol/L (98-107); Estimated GFR 56.58 (mL/min/1.73m2); Glucose 86 mg/dL (70-100); Potassium 3.9 mmol/L (3.5-5.1); Sodium 138 mmol/L (136-145)
[2017-10-24 11:38] VITALS: BP 131/87; PULSE 59; RESP 17; TEMP 36.9; O2SAT 97
[2017-10-24] MEDS: VANCOMYCIN 1,000 MG in Normal Saline 250 ML 167 MG IVPB (12:23)
--- NOTE | 2017-10-24 13:13 | PGE_ITS ---
Date of service: 10/24/17 Time of Service: 13:11 Assessment and Plan (1) Breast abscess of female: Current visit: Yes Status: Acute Less redness. The rest of the purulent discharge was flushed out. At the end the discharge was serosanguinous. Culture growing Gram positive cocci P\\ Discharge home on oral antibiotics for 10 days. Follow up next week with Dr. Armendariz Subjective Patient reports: no new complaints and pain is less Interval history since last seen: Feels the redness is better. She is now able to lay on it. Exam Chest Breast inspection: abnormal inspection of the breast left edema and erythema ( better. It is farther away from the drawn line.) Other: Dressing was removed. The wound was probed with several sterile Q-tips. Curved hemostat was used to remove some fibrinous tissue. The cavity was flushed with 20 cc of sterile NS. Chest/axillae images: 2 1. small 0.5 cm opening Resp Auscultation: clear to auscultation bilaterally Cardio Rate: regular rate Rhythm: regular rhythm Objective Objective Clinical Data: Abnormal lab results 10/23/17 10/23/17 10/24/17 Range/Units 13:03 13:03 06:38 WBC 14.60 H (4.4-10.8) k/cumm Absolute Neutrophils 10.47 H (1.2-6.7) k/cumm Absolute Lymphocytes (1.2-3.4) k/cumm Absolute Monocytes 0.76 H (0.11-0.7) k/cumm Creatinine 1.06 H (0.55-1.02) mg/dL Calcium 8.0 L (8.5-10.1) mg/dL C-Reactive Protein 7.88 H (0.0-0.3) mg/dL 10/24/17 Range/Units 06:38 WBC 11.18 H (4.4-10.8) k/cumm Absolute Neutrophils (1.2-6.7) k/cumm Absolute Lymphocytes 3.41 H (1.2-3.4) k/cumm Absolute Monocytes 0.87 H (0.11-0.7) k/cumm Creatinine (0.55-1.02) mg/dL Calcium (8.5-10.1) mg/dL C-Reactive Protein (0.0-0.3) mg/dL Vital Signs Temp 97.9 F 10/24/17 07:25 Pulse 68 10/24/17 07:25 Resp 17 10/24/17 07:25 BP 138/74 10/24/17 07:25 Pulse Ox 98 10/24/17 07:25 Intake & Output 10/23/17 10/24/17 10/24/17 23:59 11:59 23:59 Intake Total 970 / 970 540 / 540 Balance 970 / 970 540 / 540 Intake: IV 250 / 250 300 / 300 Oral 720 / 720 240 / 240 Other: Comment void x 1 Stool Size Small Stool Characteristics Soft Formed Voiding Methods Toilet Laboratory Results WBC 11.18 k/cumm (4.4-10.8) H 10/24/17 06:38 RBC 4.32 m/cumm (4.00-5.20) 10/24/17 06:38 Hgb 13.3 g/dL (12.0-15.5) 10/24/17 06:38 Hct 40.8 % (36.0-46.0) 10/24/17 06:38 MCV 94.4 fL (80-95) 10/24/17 06:38 MCH 30.8 pg (27.0-33.0) 10/24/17 06:38 MCHC 32.6 g/dL (32.0-36.0) 10/24/17 06:38 RDW 14.3 % (11.7-14.6) 10/24/17 06:38 Plt Count 269 x1000/uL (130-400) 10/24/17 06:38 MPV 9.9 fL (8.0-11.0) 10/24/17 06:38 Immature Gran % 0.2 10/24/17 06:38 Neutrophils % 59.1 10/24/17 06:38 Lymphocytes % 30.5 10/24/17 06:38 Monocytes % 7.8 10/24/17 06:38 Eosinophils % 2.0 10/24/17 06:38 Basophils % 0.4 10/24/17 06:38 Absolute Neutrophils 6.61 k/cumm (1.2-6.7) 10/24/17 06:38 Absolute Lymphocytes 3.41 k/cumm (1.2-3.4) H 10/24/17 06:38 Absolute Monocytes 0.87 k/cumm (0.11-0.7) H 10/24/17 06:38 Absolute Eosinophils 0.22 k/cumm (0.0-0.7) 10/24/17 06:38 Absolute Basophils 0.04 k/cumm (0.0-0.2) 10/24/17 06:38 ESR 15 MM/HR (0-20) 10/23/17 13:03 Sodium 138 mmol/L (136-145) 10/24/17 06:38 Potassium 3.9 mmol/L (3.5-5.1) 10/24/17 06:38 Chloride 105 mmol/L (98-107) 10/24/17 06:38 Carbon Dioxide 27.2 mmol/L (21.0-32.0) 10/24/17 06:38 Anion Gap 5.8 mmol/L (3-11) 10/24/17 06:38 BUN 9 mg/dL (7-18) 10/24/17 06:38 Creatinine 1.06 mg/dL (0.55-1.02) H 10/24/17 06:38 Estimated GFR/1.73 m2 56.58 (mL/min/1.73m2) 10/24/17 06:38 Glucose 86 mg/dL (70-100) 10/24/17 06:38 Lactate 1.2 mmol/L (0.6-1.4) 10/22/17 21:35 Calcium 8.0 mg/dL (8.5-10.1) L 10/24/17 06:38 Total Bilirubin 1.1 mg/dL (0.2-1.0) H 10/22/17 21:35 AST 25 U/L (15-37) 10/22/17 21:35 ALT 20 U/L (12-78) 10/22/17 21:35 Alkaline Phosphatase 72 U/L (46-116) 10/22/17 21:35 C-Reactive Protein 7.88 mg/dL (0.0-0.3) H 10/23/17 13:03 Total Protein 8.1 g/dL (6.4-8.2) 10/22/17 21:35 Albumin 4.0 g/dL (3.4-5.0) 10/22/17 21:35
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
--- NOTE | 2017-10-24 13:55 | W.PM.DS.N ---
DS: Diagnosis Discharge Diagnosis (1) Breast abscess of female: Status: Acute Problem details: Abscess drained, will observe for 24 hours given the extent of erythema. Continue vancomycin and zosyn while awaiting cultures Discharge Plan Discharge Details Reason For Visit: Left Breast Abscess Admit Date/Time: 10/22/17 22:45 Admit Provider: Neida Hardy Attending Provider: Neida Hardy Primary Care Provider: Roxanne Taveras V Disposition Patient Disposition: HOME Condition: Improving Discharge Instructions Activity:: Activity as Tolerated Equipment/Supplies:: No Equipment Needed Diet:: Normal Diet DS: Summary Status at Discharge Functional status at discharge: independent ambulation Time Spent with Patient Greater than 30 minutes DS: Data Labs on day of discharge: Labs from last 24 hours 10/24/17 10/24/17 10/24/17 19:00 06:38 06:38 WBC 11.18 H RBC 4.32 Hgb 13.3 Hct 40.8 MCV 94.4 MCH 30.8 MCHC 32.6 RDW 14.3 Plt Count 269 MPV 9.9 Immature Gran % 0.2 Neutrophils % 59.1 Lymphocytes % 30.5 Monocytes % 7.8 Eosinophils % 2.0 Basophils % 0.4 Absolute Neutrophils 6.61 Absolute Lymphocytes 3.41 H Absolute Monocytes 0.87 H Absolute Eosinophils 0.22 Absolute Basophils 0.04 ESR Sodium 138 Potassium 3.9 Chloride 105 Carbon Dioxide 27.2 Anion Gap 5.8 BUN 9 Creatinine 1.06 H Estimated GFR/1.73 m2 56.58 Glucose 86 Calcium 8.0 L C-Reactive Protein Vancomycin Trough Pending 10/23/17 10/23/17 13:03 13:03 WBC RBC Hgb Hct MCV MCH MCHC RDW Plt Count MPV Immature Gran % Neutrophils % Lymphocytes % Monocytes % Eosinophils % Basophils % Absolute Neutrophils Absolute Lymphocytes Absolute Monocytes Absolute Eosinophils Absolute Basophils ESR 15 Sodium Potassium Chloride Carbon Dioxide Anion Gap BUN Creatinine Estimated GFR/1.73 m2 Glucose Calcium C-Reactive Protein 7.88 H Vancomycin Trough Preliminary micro results at discharge 10/22/17 21:30 Abscess Culture - Preliminary Breast - Left 10/22/17 21:30 Abscess Culture - Preliminary Breast - Left 10/22/17 23:45 Blood Culture - Preliminary Blood NO GROWTH 24 HOURS 10/22/17 21:35 Blood Culture - Preliminary Blood NO GROWTH 24 HOURS
--- NOTE | 2017-10-24 14:40 | W.PM.DS.N ---
DS: Diagnosis Discharge Diagnosis (1) Breast abscess of female: Status: Acute Problem details: Abscess drained, will observe for 24 hours given the extent of erythema. Continue vancomycin and zosyn while awaiting cultures Discharge Plan Discharge Details Chief Complaint: Cellulitis Reason For Visit: Left Breast Abscess Admit Date/Time: 10/22/17 22:45 Admit Provider: Neida Hardy Attending Provider: Neida Hardy Primary Care Provider: Roxanne Taveras V ED Provider: Aris Hdz Disposition Patient Disposition: HOME Condition: Improving Discharge Instructions Activity:: Activity as Tolerated Equipment/Supplies:: No Equipment Needed Diet:: Normal Diet DS: Data Completed studies during hospitalization [Text1]: Pro Labs on day of discharge: Labs from last 24 hours 10/24/17 10/24/17 10/24/17 19:00 06:38 06:38 WBC 11.18 H RBC 4.32 Hgb 13.3 Hct 40.8 MCV 94.4 MCH 30.8 MCHC 32.6 RDW 14.3 Plt Count 269 MPV 9.9 Immature Gran % 0.2 Neutrophils % 59.1 Lymphocytes % 30.5 Monocytes % 7.8 Eosinophils % 2.0 Basophils % 0.4 Absolute Neutrophils 6.61 Absolute Lymphocytes 3.41 H Absolute Monocytes 0.87 H Absolute Eosinophils 0.22 Absolute Basophils 0.04 Sodium 138 Potassium 3.9 Chloride 105 Carbon Dioxide 27.2 Anion Gap 5.8 BUN 9 Creatinine 1.06 H Estimated GFR/1.73 m2 56.58 Glucose 86 Calcium 8.0 L Vancomycin Trough Pending Preliminary micro results at discharge 10/22/17 21:30 Abscess Culture - Preliminary Breast - Left 10/22/17 21:30 Abscess Culture - Preliminary Breast - Left 10/22/17 23:45 Blood Culture - Preliminary Blood NO GROWTH 24 HOURS 10/22/17 21:35 Blood Culture - Preliminary Blood NO GROWTH 24 HOURS
[2017-10-24 15:34] VITALS: BP 151/97; PULSE 57; RESP 16; TEMP 37.6; O2SAT 98
== END 2017-10-24 15:56 | disposition home or self-care (01) ==
LOC: ER 22:33 → MS 22:57
PROVIDERS: Surgery; Admitting Provider Surgery; Emergency Provider Student in an Organized Health Care Education/Training Program; PCP Family Medicine; Visit Provider Surgery
DX: N61.1 Abscess of the breast and nipple (principal); Z98.890 Other specified postprocedural states; E03.9 Hypothyroidism, unspecified; E78.5 Hyperlipidemia, unspecified
CPT/HCPCS: 10060; 36415; 80048; 80053; 85652; 87040; 96374; 96375; 99222; 99225; 99239; 99285; 80202; 83605; 85025; 86140; 87070; 87205; 99284; G0378; J1644; J1885; J2270

== ENCOUNTER 2018-07-15 08:33 | Emergency (ER) | payer MEDICAID, SELFPAY ==
[2018-07-15 08:38] VITALS: BP 177/148; PULSE 70; RESP 16; TEMP 36.6; O2SAT 96
[2018-07-15] MEDS: Bupivacaine 0.5% Pres-Free 30 ML VIAL (08:43)
--- NOTE | 2018-07-15 08:50 | ED.GENADUL_ITS ---
Discharge Plan Disposition Patient Disposition: HOME Discharge Details Chief Complaint: DentalOral Clinical Impression: Pain, dental Primary Care Provider: Roxanne Taveras V ED Provider: Aris Hdz Home Meds and New Rx's Prescriptions: New acetaminophen [Mapap Extra Strength] 500 MG tablet 1,000 mg PO Q6H 5 Days Qty: 60 RF: 0 ibuprofen [Motrin IB] 200 MG tablet 600 mg PO Q6H 5 Days Qty: 60 RF: 0 amoxicillin-pot clavulanate [Augmentin] 875-125 mg tablet 1 tab PO BID Qty: 14 RF: 0 Continued Mirena 1 EACH intrauterine device 1 ea Intrauterine ONCE Qty: 1 RF: 0 levothyroxine 112 mcg capsule 112 mcg PO DAILY Qty: 30 RF: 0 Nicotrol 10 mg Cartridge 10 mg Inhalation Q3H PRN PRNQty: 30 RF: 0 Discontinued acetaminophen [Tylenol] 325 mg Tablet 650 mg PO Q4H Qty: 30 RF: 0 ibuprofen 600 mg tablet 600 mg PO QID PRN (Reason: pain) Qty: 30 RF: 0 Discharge Instructions Instructions: Toothache (ED) Additional Instructions: Please take Tylenol and Motrin as directed. Please take the Augmentin as directed. It is easier to keep pain down and to bring it down, so in spite of your improvement continue to take Tylenol Motrin. Please follow-up promptly with your dentist. If you notice any worsening of your symptoms, or any new symptoms such as vomiting, diarrhea, fever, chills, shortness of breath, chest pain, numbness, weakness, or fainting , please return immediately to the emergency department for reevaluation. Please follow up with your primary care provider as soon as possible for reassessment and reevaluation. As always, it was a pleasure participating in your medical care today. Referrals: Roxanne Taveras MD [Primary Care Provider] - Medical Decision Making This is a 43-year-old female with a past medical history of severe dental caries who presents today for evaluation of dental pain. Is notably worsened over the last 24 to 48 hours. No fever chills, no neck pain or headache. Exam demonstrates no evidence of abscess. I do feel that the patient is most likely suffering from pulpitis. We will prescribe the antibiotic, she was given a dental block and had notable improvement of her symptomatology. Recommend continued NSAIDs at home, and close follow-up with a dentist outpatient. I have extensively reviewed the treatment plan and discharge instructions with the patient. I have addressed all patient concerns at this time. The patient was made aware of what symptoms to monitor for that would warrant a return to the emergency department. Discussed the plan with the patient, they demonstrate verbal understanding and agreement with our assessment and plan at this time. Time out was taken to identify the correct patient, procedure, and site. Risks and benefits were discussed with the patient and consent was obtained. Direct pressure was held over the area prior to the procedure to reduce painful injection. 5 cc?s of Lidocaine 1% and Bupivacaine 0.25% was instilled into the superior alveolar space on the left, an additional 5 cc were instilled into the posterior alveolar space for lower dental block with a 27 gauge needle.Complete analgesia was obtained. The patient tolerated the procedure. There were no complications. HPI General Date/Time Provider Initiated Documentation: 07/15/18 08:34 . HPI Narrative: This is a 43-year-old female who presents for dental pain. The patient states that she has a history of severe dental caries, however for the last 24 to 48 hours she has had notable pain in the left upper and left lower teeth. She denies any fever or chills. She denies any chest pain shortness of breath neck pain or headache. She has no other complaints at this time. She did take a penicillin that she had at home that was left over, and this does not improve the pain. She does have a dentist but has not seen him yet. No other modifying factors. Related Data Home Medications Medication Instructions Recorded Confirmed Mirena 1 ea INTRAUTERINE ONCE #1 implant 12/27/14 07/15/18 levothyroxine 112 mcg PO DAILY #30 cap 10/21/17 10/22/17 Nicotrol 10 mg INHALATION Q3H PRN PRN #30 ea 10/24/17 07/15/18 acetaminophen [Mapap Extra 1,000 mg PO Q6H 5 Days #60 tab 07/15/18 Strength] amoxicillin-pot clavulanate 1 tab PO BID #14 tab 07/15/18 [Augmentin] ibuprofen [Motrin Ib] 600 mg PO Q6H 5 Days #60 tab 07/15/18 Previous Rx's Medication Instructions Recorded levothyroxine 112 mcg PO DAILY #30 cap 10/21/17 Nicotrol 10 mg INHALATION Q3H PRN PRN #30 ea 10/24/17 acetaminophen [Mapap Extra 1,000 mg PO Q6H 5 Days #60 tab 07/15/18 Strength] amoxicillin-pot clavulanate 1 tab PO BID #14 tab 07/15/18 [Augmentin] ibuprofen [Motrin Ib] 600 mg PO Q6H 5 Days #60 tab 07/15/18 Allergies Allergy/AdvReac Type Severity Reaction Status Date / Time nicotine [From Nicoderm CQ] AdvReac Intermediate Nightmares Unverified 07/15/18 08:46 General Stated Complaint: DentalOral ADRIEN: 4 Review of Systems Review of Systems All systems reviewed & are unremarkable except as noted in HPI and below PFSH Medical History Hx of abscess of breast (Acute) DJD (degenerative joint disease) of cervical spine Hyperlipemia Hypothyroid Obesity Surgical History Status post incision and drainage (Acute) Family History Mother Heart disease Father Heart disease Hyperlipidemia Grandfather Personal history of malignant neoplasm Maternal Aunt Personal history of malignant neoplasm Social History Smoking/Tobacco Use Status: Current every day Alcohol Intake: never Drug use: Daily Substance use type: does not use Do you feel safe in your relationship?: Yes Exam Narrative Exam Narrative: 1.Const: Well-nourished, Well-developed, appearing stated age 2.Eyes: PERRL, no conjunctival injection, and symmetrical lids. 3.ENT: Atraumatic external nose and ears. Moist MM. Neck: Symmetric, trachea midline, No thyromegaly. Notable dental caries throughout, particularly severe over the left and right teeth in particular over teeth 19 [id number] 1615 and 14. No periapical abscess, no swelling or fluctuance. Patient demonstrates good movement of cervical neck. There is no nuchal rigidity, no nuchal tenderness. Patient is able to flex the neck without any difficulty or significant pain. Negative Kernig's and Brudzinski sign. 4.CVS: +S1/S2, No murmurs or gallops. Peripheral pulses 2+ and equal in all extremities. Brisk capillary refill in all extremities. 5.RESP: Unlabored respiratory effort. Clear to auscultation bilaterally. No wheezes rales or rhonchi 6.GI: Soft, Nontender/Nondistended, No hepatosplenomegaly. No guarding or rebound. 7.MSK: Normocephalic/Atraumatic, Extremities w/o deformity or ttp No cyanosis or clubbing, Normal movement of all extremities 8.Skin: Warm, Dry. No rashes or lesions. 9.Neuro: valuation consultant II-XII grossly intact. Sensation grossly intact, no focal neurologic deficits. 10.Psych: (AAO) x3. Appropriate mood and affect Course Vital Signs Temperature 36.6 C 07/15/18 08:38 Pulse 70 07/15/18 08:38 Respiratory Rate 16 07/15/18 08:38 Blood Pressure 177/148 H 07/15/18 08:38 Pulse Oximetry 96 07/15/18 08:38 Temperature 36.6 C 07/15/18 08:38 Temperature Source Skin 07/15/18 08:38 Pulse 70 07/15/18 08:38 Respiratory Rate 16 07/15/18 08:38 Respiratory Effort Non-Labored 07/15/18 08:38 Blood Pressure 177/148 H 07/15/18 08:38 Blood Pressure Position Sitting 07/15/18 08:38 Pulse Oximetry 96 07/15/18 08:38 Oxygen Delivery Method Room Air 07/15/18 08:38 Oxygen Flow Rate 0 07/15/18 08:38 Pain Level 10 07/15/18 08:38
== END 2018-07-15 09:11 | disposition home or self-care (01) ==
PROVIDERS: Emergency Provider Student in an Organized Health Care Education/Training Program; PCP Family Medicine
DX: R68.84 Jaw pain (principal); K08.89 Other specified disorders of teeth and supporting structures
CPT/HCPCS: 64402

== ENCOUNTER 2018-08-04 18:19 | Emergency (ER) | payer MEDICAID, SELFPAY ==
[2018-08-04 18:22] VITALS: BP 143/78; PULSE 82; RESP 12; TEMP 37.1; O2SAT 98
--- NOTE | 2018-08-04 18:36 | W.ED.GENAD ---
Discharge Plan Disposition Patient Disposition: HOME Condition: Stable Discharge Details Chief Complaint: RashLesion Clinical Impression: Tick bite Primary Care Provider: Roxanne Taveras V ED Provider: Bam Roe Home Meds and New Rx's Prescriptions: No Action Mirena 1 EACH intrauterine device 1 ea Intrauterine ONCE Qty: 1 RF: 0 levothyroxine 112 mcg capsule 112 mcg PO DAILY Qty: 30 RF: 0 Nicotrol 10 mg Cartridge 10 mg Inhalation Q3H PRN PRNQty: 30 RF: 0 amoxicillin-pot clavulanate [Augmentin] 875-125 mg tablet 1 tab PO BID Qty: 14 RF: 0 Discharge Instructions Instructions: Tick Bite (ED) Additional Instructions: if you develop spreading redness or a bulls eye like rash, or fevers see your primary care provider or return to the emergency department Medical Decision Making 43 yo female states she pulled a tick off her abdomen, on for about 2 or more days per pt. Has 1cm mild erythema of mid abdomen where tick was pulled off that is not warm to touch, no visible foreign body. No evidence of cellulitis, will give dose prophylactically of doxy and d/c home, return precautions given Differential Diagnosis tick bite, cellulitis HPI General Mode of arrival: ambulatory. Date/Time Provider Initiated Documentation: 08/04/18 18:21. Limitations to Documentation: no limitations. Information obtained by: patient. History of Present Illness 43 year old F presents to the emergency department with the chief complaint of rash, described as moderate, Patient started experiencing this hour(s) (2) and it has been constant. No relieving factors improve symptom(s), No exacerbating factors reported . Patient notes no other symptoms.. Patient did receive the following treatments prior to arrival, none Related Data Home Medications Medication Instructions Recorded Confirmed Mirena 1 ea INTRAUTERINE ONCE #1 implant 12/27/14 08/04/18 levothyroxine 112 mcg PO DAILY #30 cap 10/21/17 08/04/18 Nicotrol 10 mg INHALATION Q3H PRN PRN #30 ea 10/24/17 07/15/18 amoxicillin-pot clavulanate 1 tab PO BID #14 tab 07/15/18 [Augmentin] Previous Rx's Medication Instructions Recorded levothyroxine 112 mcg PO DAILY #30 cap 10/21/17 Nicotrol 10 mg INHALATION Q3H PRN PRN #30 ea 10/24/17 amoxicillin-pot clavulanate 1 tab PO BID #14 tab 07/15/18 [Augmentin] Allergies Allergy/AdvReac Type Severity Reaction Status Date / [facility] Adv[facility] Intermediate Nightmares Unverified 08/04/18 18:25 General Stated Complaint: RashLesion ADRIEN: 5 Review of Systems Review of Systems All systems reviewed & are unremarkable except as noted in HPI and below Constitutional Denies chills, Denies fever(s) and Denies weakness Cardiovascular Denies chest pain and Denies dyspnea Respiratory Denies cough and Denies dyspnea Gastrointestinal Denies abdominal pain, Denies nausea and Denies vomiting Musculoskeletal Denies joint swelling Neurologic Denies weakness PFSH Medical History Hx of abscess of breast (Acute) DJD (degenerative joint disease) of cervical spine Hyperlipemia Hypothyroid Obesity Surgical History Status post incision and drainage (Acute) Family History Mother Heart disease Father Heart disease Hyperlipidemia Grandfather Personal history of malignant neoplasm Maternal Aunt Personal history of malignant neoplasm Social History Smoking/Tobacco Use Status: Current every day Tobacco Type: cigarettes Alcohol Intake: never Drug use: Never Substance use type: does not use Do you feel safe at home: Yes Do you feel safe in your relationship?: Yes Exam Const General: no acute distress Orientation: alert HENMT Head: normal to inspection Ears: external ears normal General nose exam: external nose normal Mouth: moist mucous membranes Eyes General: appearance normal, both eyes and all related structures Neck Neck: normal visual inspection Resp Effort & Inspection: normal respiratory effort and able to speak in complete sentences Cardio Rate: regular rate Skin General skin exam: elasticity normal Neuro General: alert and oriented x3 Extrem General: normal to inspection Psych Mental Status: mental status grossly normal Course Vital Signs Temperature 37.1 C 08/04/18 18:22 Pulse 82 08/04/18 18:22 Respiratory Rate 12 08/04/18 18:22 Blood Pressure 143/78 H 08/04/18 18:22 Pulse Oximetry 98 08/04/18 18:22 Temperature 37.1 C 08/04/18 18:22 Temperature Source Temporal Artery Scan 08/04/18 18:22 Pulse 82 08/04/18 18:22 Respiratory Rate 12 08/04/18 18:22 Respiratory Effort Non-Labored 08/04/18 18:23 Blood Pressure 143/78 H 08/04/18 18:22 Blood Pressure Position Sitting 08/04/18 18:22 Pulse Oximetry 98 08/04/18 18:22 Oxygen Delivery Method Room Air 08/04/18 18:22 Oxygen Flow Rate 0 08/04/18 18:22 Pain Level 2 08/04/18 18:22
--- NOTE | 2018-08-04 18:39 | ED.GENADUL_ITS ---
Discharge Plan Disposition Patient Disposition: HOME Condition: Stable Discharge Details Chief Complaint: RashLesion Clinical Impression: Tick bite Primary Care Provider: Roxanne Taveras V ED Provider: Bam Roe Home Meds and New Rx's Prescriptions: No Action Mirena 1 EACH intrauterine device 1 ea Intrauterine ONCE Qty: 1 RF: 0 levothyroxine 112 mcg capsule 112 mcg PO DAILY Qty: 30 RF: 0 Nicotrol 10 mg Cartridge 10 mg Inhalation Q3H PRN PRNQty: 30 RF: 0 amoxicillin-pot clavulanate [Augmentin] 875-125 mg tablet 1 tab PO BID Qty: 14 RF: 0 Discharge Instructions Instructions: Tick Bite (ED) Additional Instructions: if you develop spreading redness or a bulls eye like rash, or fevers see your primary care provider or return to the emergency department Medical Decision Making 43 yo female states she pulled a tick off her abdomen, on for about 2 or more days per pt. Has 1cm mild erythema of mid abdomen where tick was pulled off that is not warm to touch, no visible foreign body. No evidence of cellulitis, will give dose prophylactically of doxy and d/c home, return precautions given Differential Diagnosis tick bite, cellulitis HPI General Mode of arrival: ambulatory . Date/Time Provider Initiated Documentation: 08/04/18 18:21 . Limitations to Documentation: no limitations . Information obtained by: patient . History of Present Illness 43 year old F pr esents to the emergency department with the chief complaint of rash, described as moderate, Patient started experiencing this hour(s) (2) and it has been constant. No relieving factors improve symptom(s), No exacerbating factors reported . Patient notes no other symptoms.. Patient did receive the following treatments prior to arrival, none Related Data Home Medications Medication Instructions Recorded Confirmed Mirena 1 ea INTRAUTERINE ONCE #1 implant 12/27/14 08/04/18 levothyroxine 112 mcg PO DAILY #30 cap 10/21/17 08/04/18 Nicotrol 10 mg INHALATION Q3H PRN PRN #30 ea 10/24/17 07/15/18 amoxicillin-pot clavulanate 1 tab PO BID #14 tab 07/15/18 [Augmentin] Previous Rx's Medication Instructions Recorded levothyroxine 112 mcg PO DAILY #30 cap 10/21/17 Nicotrol 10 mg INHALATION Q3H PRN PRN #30 ea 10/24/17 amoxicillin-pot clavulanate 1 tab PO BID #14 tab 07/15/18 [Augmentin] Allergies Allergy/AdvReac Type Severity Reaction Status Date / [facility] Adv[facility] Intermediate Nightmares Unverified 08/04/18 18:25 General Stated Complaint: RashLesion ADRIEN: 5 Review of Systems Review of Systems All systems reviewed & are unremarkable except as noted in HPI and below Constitutional Denies chills, Denies fever(s) and Denies weakness Cardiovascular Denies chest pain and Denies dyspnea Respiratory Denies cough and Denies dyspnea Gastrointestinal Denies abdominal pain, Denies nausea and Denies vomiting Musculoskeletal Denies joint swelling Neurologic Denies weakness PFSH Medical History Hx of abscess of breast (Acute) DJD (degenerative joint disease) of cervical spine Hyperlipemia Hypothyroid Obesity Surgical History Status post incision and drainage (Acute) Family History Mother Heart disease Father Heart disease Hyperlipidemia Grandfather Personal history of malignant neoplasm Maternal Aunt Personal history of malignant neoplasm Social History Smoking/Tobacco Use Status: Current every day Tobacco Type: cigarettes Alcohol Intake: never Drug use: Never Substance use type: does not use Do you feel safe at home: Yes Do you feel safe in your relationship?: Yes Exam Const General: no acute distress Orientation: alert HENMT Head: normal to inspection Ears: external ears normal General nose exam: external nose normal Mouth: moist mucous membranes Eyes General: appearance normal, both eyes and all related structures Neck Neck: normal visual inspection Resp Effort & Inspection: normal respiratory effort and able to speak in complete sentences Cardio Rate: regular rate Skin General skin exam: elasticity normal Neuro General: alert and oriented x3 Extrem General: normal to inspection Psych Mental Status: mental status grossly normal Course Vital Signs Temperature 37.1 C 08/04/18 18:22 Pulse 82 08/04/18 18:22 Respiratory Rate 12 08/04/18 18:22 Blood Pressure 143/78 H 08/04/18 18:22 Pulse Oximetry 98 08/04/18 18:22 Temperature 37.1 C 08/04/18 18:22 Temperature Source Temporal Artery Scan 08/04/18 18:22 Pulse 82 08/04/18 18:22 Respiratory Rate 12 08/04/18 18:22 Respiratory Effort Non-Labored 08/04/18 18:23 Blood Pressure 143/78 H 08/04/18 18:22 Blood Pressure Position Sitting 08/04/18 18:22 Pulse Oximetry 98 08/04/18 18:22 Oxygen Delivery Method Room Air 08/04/18 18:22 Oxygen Flow Rate 0 08/04/18 18:22 Pain Level 2 08/04/18 18:22
[2018-08-04] MEDS: Doxycycline Hyclate 100 MG CAP 200 MG PO (18:46)
== END 2018-08-04 18:30 | disposition home or self-care (01) ==
LOC: ER 18:41
PROVIDERS: Emergency Provider Emergency Medicine; PCP Family Medicine
DX: S30.861A Insect bite (nonvenomous) of abdominal wall, initial encounter (principal); W57.XXXA Bitten or stung by nonvenomous insect and other nonvenomous arthropods, initial encounter
CPT/HCPCS: 99283

== ENCOUNTER 2019-05-20 14:16 | Emergency (ER) | payer MEDICAID, SELFPAY ==
[2019-05-20 14:21] VITALS: BP 158/85; PULSE 68; RESP 16; TEMP 36.6; O2SAT 98
--- NOTE | 2019-05-20 14:29 | ED.GENADUL_ITS ---
Discharge Plan Disposition Patient Disposition: HOME Condition: Stable Discharge Details Chief Complaint: DentalOral Clinical Impression: Pain, dental, Dental caries Primary Care Provider: None,None ED Provider: Svitlana Bass Home Meds and New Rx's Prescriptions: No Action Mirena 1 EACH intrauterine device 1 ea Intrauterine ONCE Qty: 1 RF: 0 levothyroxine 112 mcg capsule 112 mcg PO DAILY Qty: 30 RF: 0 Nicotrol 10 mg Cartridge 10 mg Inhalation Q3H PRN PRNQty: 30 RF: 0 Discharge Instructions Instructions: Dental Caries (ED), Toothache (ED) Additional Instructions: Please take Tylenol or Ibuprofen with food every 4-6 hours as needed for pain and swelling. You do still need to see a dentist. A dental block will last approximately 1 to 2 hours. Please return if any fever, drainage, trouble swallowing or throat pain. Medical Decision Making 44-year-old female presents with left-sided upper and lower dental pain. She reports worsening or last night, she states that she had vomited due to the pain. Patient is a smoker. Denies any fever or chills. Speaking in full sentences no trouble swallowing. She does report pain rating up to her left ear. Upon initial exam, she has generalized poor dentition, there is no abscess noted or area of fluctuance. Does have a small amount of left anterior cervical lymphadenopathy, however she denies any sore throat. 1433: Benzocaine 2% Hurricaine gel apply topically to left upper arm or jaw will reevaluate patient in 5 to 10 minutes. 1452: Patient states topical gel is not really helping, she now states front upper teeth hurt around # 10 11. She has black around the gum line. Agrees to a dental block. Dental block performed see procedure note above. Patient tolerated well and anesthesia was achieved. Patient was given 150 mg tramadol p.o. in department. Discharged home with dental resources instructed to see dentist as soon as possible. Strict return instructions given. HPI General Mode of arrival: ambulatory . Date/Time Provider Initiated Documentation: 05/20/19 14:18 . Limitations to Documentation: no limitations . Information obtained by: patient . HPI Narrative: 44-year-old female presents with left-sided upper and lower dental pain. She reports worsening or last night, she states that she had vomited due to the pain. Patient is a smoker. Denies any fever or chills. Speaking in full sentences no trouble swallowing. She does report pain rating up to her left ear. Upon initial exam, she has generalized poor dentition, there is no abscess noted or area of fluctuance. Does have a small amount of left anterior cervical lymphadenopathy, however she denies any sore throat. Related Data Home Medications Medication Instructions Recorded Confirmed Mirena 1 ea INTRAUTERINE ONCE #1 implant 12/27/14 05/20/19 levothyroxine 112 mcg PO DAILY #30 cap 10/21/17 05/20/19 Nicotrol 10 mg INHALATION Q3H PRN PRN #30 ea 10/24/17 05/20/19 Previous Rx's Medication Instructions Recorded levothyroxine 112 mcg PO DAILY #30 cap 10/21/17 Nicotrol 10 mg INHALATION Q3H PRN PRN #30 ea 10/24/17 Allergies Allergy/AdvReac Type Severity Reaction Status Date / Time nicotine [From Nicoderm [facility]] AdvReac Intermediate Nightmares Unverified 05/20/19 14:28 General Stated Complaint: DentalOral ADRIEN: 4 Review of Systems Narrative: Constitutional: Negative for weight loss, alert and oriented, well groomed, normal body habitus, appears comfortable. HEENT: Denies trauma, headaches, blurry vision, nasal discharge, sore throat, trouble swallowing. Positive poor dentition and dental caries. Chest: Denies chest pain, palpitations, irregular rhythm, hypertension. Respiratory: Denies Shortness of breath, cough, hemoptysis. GI: Denies abdominal pain, nausea, vomiting, diarrhea, constipation. : Denies dysuria, hematuria, flank pain, rectal bleeding. Neuro: Denies dizziness, blurry vision, weakness, syncope, headache or facial numbness. Hematologic: Denies easy bruising, intolerance to heat or cold, hair loss. [facility] Medical History DJD (degenerative joint disease) of cervical spine Hx of abscess of breast (Acute) Hyperlipemia Hypothyroid Obesity Surgical History Status post incision and drainage (Acute) Family History Mother Heart disease Father Heart disease Hyperlipidemia Grandfather Personal history of malignant neoplasm colon Maternal Aunt Personal history of malignant neoplasm breast Social History Smoking/Tobacco Use Status: Current every day Tobacco Type: cigarettes Alcohol Intake: never Drug use: Never Substance use type: does not use Do you feel safe at home: Yes Do you feel safe in your relationship?: Yes Exam Narrative Exam Narrative: Constitutional: Allert and oriented x3. Appears stated age. Normal body habitus. Head: Normocephalic, no trauma. Eyes: Pupils PERRLA, Red reflex noted, EOM's intact. Eyelids symmetrical withour lesions, discharge, or swelling. ENT: Bilateral TM's WNL, External ear normal to inspection, no mastoid TTP, swelling, or erythema, Nasal turbinates WNL, no nasal discharge. She has generalized poor dentition and multiple dental caries noted. There are multiple teeth that are eroded down to the gumline. No abscess noted, no discharge or area of fluctuance ,posterior pharynx slightly erythemic, no exudate. Chest: RRR, Normal S1, S2, distal pulses intact. Resp: Lungs clear to auscultation bilaterally, no wheezes, rales, or rhonchi. Musculoskeletal: Normal gait, 5/5 strength to all four extremities. Skin: No suspicious rashes or lesions. Capillary refill less than 2 sec. Neurologic: Cranial nerves II-XII intact. Alert and oriented x 3. DTR's intact. Hematologic/Lymphatic: No ecchymosis, left-sided anterior cervical lymphadenopathy. HENMT Teeth and gingiva: caries and poor dentition Course Vital Signs Vital signs: Vital Signs Temperature 36.6 C 05/20/19 14:21 Pulse 68 05/20/19 14:21 Respiratory Rate 16 05/20/19 14:21 Blood Pressure 158/85 H 05/20/19 14:21 Pulse Oximetry 98 05/20/19 14:21 Temperature 36.6 C 05/20/19 14: Temperature Source Tympanic 05/20/19 14:21 Pulse 68 05/20/19 14:21 Respiratory Rate 16 05/20/19 14:21 Respiratory Effort Non-Labored 05/20/19 14:26 Blood Pressure 158/85 H 05/20/19 14:21 Blood Pressure Position Sitting 05/20/19 14:21 Pulse Oximetry 98 05/20/19 14:21 Oxygen Delivery Method Room Air 05/20/19 14:21 Oxygen Flow Rate 0 05/20/19 14:21 Pain Level 10 05/20/19 14:21 Procedures Nerve Block Nerve Block 1: Time out performed: No Local Anesthetic: Lidocaine 1% Amount of anesthesia used (mL): 1 Side: left Intraoral Nerve Block: infraorbital and inferior alveolar Procedure Successful: Yes Patient Tolerated Procedure: well and no complications Complications: none
[2019-05-20] MEDS: Benzocaine 20% Gel 30 GM JAR MM (14:30)
[2019-05-20] MEDS: traMADol 50 MG TAB PO (15:13)
== END 2019-05-20 15:11 | disposition home or self-care (01) ==
PROVIDERS: Emergency Provider Registered Nurse Emergency
DX: R68.84 Jaw pain (principal); F17.210 Nicotine dependence, cigarettes, uncomplicated
CPT/HCPCS: 64450; 99283

== ENCOUNTER 2019-08-02 21:16 | Emergency (ER) | payer MEDICAID, SELFPAY ==
[2019-08-02 21:21] VITALS: BP 155/89; PULSE 68; RESP 16; TEMP 36.6; O2SAT 99
--- NOTE | 2019-08-02 21:24 | W.ED.GENAD ---
Discharge Plan Disposition Patient Disposition: HOME Condition: Good Discharge Details Chief Complaint: DentalOral Clinical Impression: Pain, dental Primary Care Provider: None,None ED Provider: Aris Hdz Home Meds and New Rx's Prescriptions: New penicillin V potassium 500 mg tablet 500 mg PO QID 10 Days Qty: 40 RF: 0 Continued Mirena 1 EACH intrauterine device 1 ea Intrauterine ONCE Qty: 1 RF: 0 levothyroxine 112 mcg capsule 112 mcg PO DAILY Qty: 30 RF: 0 Nicotrol 10 mg Cartridge 10 mg Inhalation Q3H PRN PRNQty: 30 RF: 0 Discharge Instructions Instructions: Toothache (ED) Additional Instructions: You have a mild dental infection. Please take 1000 mg of Tylenol every 6 hours and 800 mg of ibuprofen every 6 hours. These are the maximum doses. Please take the antibiotic as directed. Please follow-up closely with your dentist. If you notice any worsening of your symptoms, or any new symptoms such as vomiting, diarrhea, fever, chills, shortness of breath, chest pain, numbness, weakness, or fainting , please return immediately to the emergency department for reevaluation. Please follow up with your primary care provider as soon as possible for reassessment and reevaluation. As always, it was a pleasure participating in your medical care today. Medical Decision Making Pleasant 44-year-old female presents for left upper dental caries. Physical exam shows no evidence of dental abscess. No murmur on exam, no clinical evidence of systemic infection. No difficulty swallowing. Notable dental caries, particularly in the left upper posterior space which is where pain is. With no abscess, a moderate amount of bupivacaine was placed with dental block, CP please see procedure note. Dose of antibiotics/amoxicillin was given here and a prescription for penicillin was given for home use. Patient has a dental sheet, she will be calling her dentist. I have extensively reviewed the treatment plan and discharge instructions with the patient. I have addressed all patient concerns at this time. The patient was made aware of what symptoms to monitor for that would warrant a return to the emergency department. Discussed the plan with the patient, they demonstrate verbal understanding and agreement with our assessment and plan at this time. HPI General Date/Time Provider Initiated Documentation: 08/02/19 21:17. HPI Narrative: This is a 44-year-old female with past medical history of notable dental caries, who presents today for evaluation of left upper dental pain. Patient states that she has not been able to see the dentist because of the coronavirus pandemic. She states that she has had mild achiness in her teeth, however starting 2 hours ago she had severe pain of her left upper molars. She denies any fever or chills, she has had mild pain with eating because of the pain. She has no other complaints at this time. She denies any difficulty swallowing, Related Data Home Medications Medication Instructions Recorded Confirmed Mirena 1 ea INTRAUTERINE ONCE #1 implant 12/27/14 05/20/19 levothyroxine 112 mcg PO DAILY #30 cap 10/21/17 05/20/19 Nicotrol 10 mg INHALATION Q3H PRN PRN #30 ea 10/24/17 05/20/19 penicillin V potassium 500 mg PO QID 10 Days #40 tab 08/02/19 Previous Rx's Medication Instructions Recorded levothyroxine 112 mcg PO DAILY #30 cap 10/21/17 Nicotrol 10 mg INHALATION Q3H PRN PRN #30 ea 10/24/17 penicillin V potassium 500 mg PO QID 10 Days #40 tab 08/02/19 Allergies Allergy/AdvReac Type Severity Reaction Status Date / Time nicotine [From Nicoderm CQ] AdvReac Intermediate Nightmares Unverified 05/20/19 14:28 General Stated Complaint: DentalOral ADRIEN: 4 Review of Systems All systems reviewed & are unremarkable except as noted in HPI and below PFSH Social History Smoking/Tobacco Use Status: Current every day Tobacco Type: cigarettes Alcohol Intake: never Drug use: Never Substance use type: does not use Do you feel safe at home: Yes Do you feel safe in your relationship?: Yes Exam Narrative Exam Narrative: 1.Const: Well-nourished, Well-developed, appearing stated age 2.Eyes: PERRL, no conjunctival injection, and symmetrical lids. 3.ENT: Atraumatic external nose and ears. Moist MM. Neck: Symmetric, trachea midline, No thyromegaly. Notably poor dentition throughout, severe dental caries, notably over the left upper posterior molar she demonstrates a rotted away tooth. No abscess, no fluctuance. 4.CVS: +S1/S2, No murmurs or gallops. Peripheral pulses 2+ and equal in all extremities. Brisk capillary refill in all extremities. 5.RESP: Unlabored respiratory effort. Clear to auscultation bilaterally. No wheezes rales or rhonchi 6.GI: Soft, Nontender/Nondistended, No hepatosplenomegaly. No guarding or rebound. 7.MSK: Normocephalic/Atraumatic, Extremities w/o deformity or ttp No cyanosis or clubbing, Normal movement of all extremities 8.Skin: Warm, Dry. No rashes or lesions. 9.Neuro: manager fitness II-XII grossly intact. Sensation grossly intact, no focal neurologic deficits. 10.Psych: (AAO) x3. Appropriate mood and affect Course Vital Signs Vital signs: Vital Signs Temperature 36.6 C 08/02/19 21:21 Pulse 68 08/02/19 21:21 Respiratory Rate 16 08/02/19 21:21 Pulse Oximetry 99 08/02/19 21:21 Temperature 36.6 C 08/02/19 21:21 Temperature Source Temporal Artery Scan 08/02/19 21:21 Pulse 68 08/02/19 21:21 Respiratory Rate 16 08/02/19 21:21 Blood Pressure Position Sitting 08/02/19 21:21 Pulse Oximetry 99 08/02/19 21:21 Oxygen Delivery Method Room Air 08/02/19 21:21 Oxygen Flow Rate 0 08/02/19 21:21 Pain Level 10 08/02/19 21:21 Procedures Other Description: Time out was taken to identify the correct patient, procedure, and site. Risks and benefits were discussed with the patient and consent was obtained. Direct pressure was held over the area prior to the procedure to reduce painful injection. 1% and Bupivacaine 0.25% was instilled into the left posterior superior alveolar space with a 27 gauge needle.Complete analgesia was obtained. The patient tolerated the procedure. There were no complications.
[2019-08-02] MEDS: Bupivacaine 0.5% Pres-Free 30 ML VIAL (21:26)
[2019-08-02] MEDS: Amoxicillin 500 MG CAP PO (21:28)
== END 2019-08-02 21:30 | disposition home or self-care (01) ==
PROVIDERS: Emergency Provider Student in an Organized Health Care Education/Training Program
DX: R68.84 Jaw pain (principal); K04.7 Periapical abscess without sinus
CPT/HCPCS: 64450

== ENCOUNTER 2021-05-23 14:10 | Emergency (ER) | payer MEDICAID, SELFPAY ==
--- NOTE | 2021-05-23 14:30 | DI.RAD_ITS ---
Exam(s) XR CHEST 2V PA LATERAL EXAM: XR CHEST 2V PA LATERAL CLINICAL HISTORY: chest pain TECHNIQUE: 2D digital imaging was performed of the chest. Two images were obtained. PA and lateral views were obtained. COMPARISON: CR XR CHEST 2V PA LATERAL from 10/21/2017 FINDINGS: MEDIASTINUM: Normal. HEART: Normal. PULMONARY VASCULATURE: Normal. LUNGS: Clear. PLEURAL SPACE: No pleural effusion or pneumothorax. BONE:Within normal limits for the patient's age. OTHER FINDINGS:Normal. IMPRESSION: No acute pulmonary findings. DATA REPOSITORY: RADIATION DOSE DELIVERED:
--- NOTE | 2021-05-23 14:30 | RT.EKG_ITS ---
APPROVED REPORT Exam: Resting ECG Reason for Exam: PAIN LEFT SIDE Patient Location: E HR:71 bpm ECG Measurements Heart Rate 71 AXIS WY 168 P 48 QRSd 95 QRS 97 QT 402 T 2 QTc 437 Conclusion Sinus rhythm...normal P axis, V-rate 60- 99 Low voltage, precordial leads...precordial leads <1.0mV Consider anterior infarct...Q >30mS in V2-V5
[2021-05-23 14:31] VITALS: BP 151/96; PULSE 78; RESP 16; TEMP 37; O2SAT 96
[2021-05-23 14:36] VITALS: RESP 16
[2021-05-23 15:11] LABS: Abs Immature Grans 0.05 10^3/uL (0.0-0.06); Absolute Monocyte Count 0.75 10^3/uL (0.1-0.8); Basophils % 0.7; Eosinophils % 1.5; HCT 44.8 % (36.0-46.0); HGB 14.7 g/dL (11.2-15.7); Immature Grans % 0.4; Lymphocytes % 30.3; MCH 30.1 pg (27.0-33.0); MCHC 32.8 % (32.0-36.0); MCV 91.6 fL (80-95); MPV 9.2 fL (8.0-11.0); Monocytes % 5.5; Neutrophils % 61.6; Nucleated RBC 0 %; Platelet Count 392 10^3/uL (130-400); RBC 4.89 10^6/uL (3.93-5.22); RDW 14.7 % (11.7-14.6); WBC 13.65 10^3/uL (4.4-10.8)
[2021-05-23 15:13] LABS: Absolute Lymphocyte Count 4.14 10^3/uL (1.2-3.4); Absolute Neutrophil Count 8.41 10^3/uL (1.2-6.7)
[2021-05-23 15:14] LABS: Bilirubin Negative (Negative); Blood Trace-intact (Negative); Clarity Clear (Clear); Glucose Negative (Negative); Ketones Negative (Negative); Leukocyte Esterase Negative (Negative); Nitrite Negative (Negative); Urobilinogen 0.2 EU/dL (Up TO 0.2)
[2021-05-23 15:26] LABS: Epithelial Cells Moderate HPF (Negative); RBC Negative HPF (0-2)
[2021-05-23 15:27] LABS: Bacteria Negative HPF (Negative); C & S Indicated? No/Sq. Contamination; Casts Negative LPF (Negative); Crystals Negative HPF (Negative); Mucus Negative (Negative)
[2021-05-23 15:34] LABS: ALT 23 U/L (14-59); AST 20 U/L (15-37); Albumin 4.1 g/dL (3.4-5.0); Alkaline Phosphatase 76 U/L (46-116); Anion Gap 8.4 mmol/L (3-11); BUN 12 mg/dL (7-18); Bilirubin, Total 0.5 mg/dL (0.2-1.0); CO2 26.6 mmol/L (21.0-32.0); Calcium 8.9 mg/dL (8.5-10.1); Chloride 103 mmol/L (98-107); Estimated GFR 59.43 (mL/min/1.73m2); Glucose 95 mg/dL (74-106); Lipase 130 U/L (73-393); Magnesium 2.1 mg/dL (1.8-2.4); Potassium 3.9 mmol/L (3.5-5.1); Sodium 138 mmol/L (136-145); Total Protein 8.1 g/dL (6.4-8.2); Troponin I < 50 ng/L (<or=60)
[2021-05-23 15:50] LABS: Source Nasal/Nares
--- NOTE | 2021-05-23 16:21 | ED.GENADUL_ITS ---
Discharge Plan Disposition Patient Disposition: HOME Condition: Stable Discharge Details Clinical Impression: Chest pain, Abdominal pain, Hypothyroidism, Pericardial effusion Primary Care Provider: None,None ED Provider: Omar Beck Home Meds and New Rx's Prescriptions: Continued levothyroxine 112 mcg capsule 112 mcg PO DAILY Qty: 90 0RF Label Comments: Pt reports no longer taking. Mirena 1 EACH intrauterine device 1 ea Intrauterine ONCE Qty: 1 0RF Label Comments: in place Discharge Instructions Instructions: Chest Pain (ED), Hypothyroidism (ED), Pericardial Effusion (ED), Abdominal Pain (ED) Additional Instructions: Work-up in the ER does not reveal any obvious emergent process. As we discussed you do have a a small amount of fluid around your heart. [id number] Tylenol and/or Motrin as directed for discomfort. Please take your thyroid medication as prescribed by the urgent care. Watch for new or worsening symptoms and return to the ER for any concerns. Lastly, I have placed you on the care management list to help expedite outpatient primary care follow-up. Discharge Data Discharge Date/Time-TO BE ENTERED AT DEPARTURE: 05/23/21 19:43 Medical Decision Making This is a 46-year-old, reports history of thyroid is not been on any medication for the past 2 years. She went to the urgent care today to discuss getting back on the medication, a prescription is awaiting pickup at the pharmacy. She also mentioned some left-sided abdominal pain that has been going on since Saturday, she also met me some left-sided chest pain, worse with palpation of her chest. Denies any cardiac or pulmonary history. She was sent to the ER for further evaluation potential CT imaging. Clinically she appears well, nontoxic, plan is to obtain IV access, cardiac work-up including D-dimer and likely CT image. Will give a single dose of aspirin although clinically low suspicion for ACS. Laboratory values reveal mild nonspecific leukocytosis of 13.65, no evidence of anemia, platelet count appropriate at 392. Dimer slightly elevated at 598, plan to pursue a CTA of the chest for rule out PE but given her abdominal pain and leukocytosis, will extend the CT through the abdomen and pelvis as well. Chemistries unremarkable, renal function normal. Magnesium 2.1, troponin is less than 50. TSH 157.72, free T4 0.31. Patient has not taken her thyroid medications in over 2 years, was given a prescription to fill from the urgent care earlier today and plans to do so. She does not have a primary care provider, I will place her on the care management list help expedite primary care follow-up. Urinalysis unremarkable for infection CTA of the chest, abdomen, pelvis unremarkable for obvious emergent process. There is a small pericardial effusion noted. We discussed these findings, discussed this needs to be followed through her PCP whom I am setting her up with as care management will contact her and help expedite this process. Patient reports that she is feeling well and would like to be discharged. We discussed receiving a delta troponin, she is agreeable to this. Delta troponin remains less than 50. Discussed delta troponin and entire work-up with patient. She is again requesting discharge, has no additional questions or concerns. Strict discharge and return precautions were provided. This documentation was generated using [employer] system, please disregard any oddities of phrase or misspellings. Medical Records Medical records reviewed: Yes I reviewed the patient's medical records. Imaging Data Radiologic Study: Attestation: I personally reviewed and interpreted this imaging study as follows: Imaging: X-Ray Radiologist's impression: Exam(s) XR CHEST 2V PA LATERAL EXAM: XR CHEST 2V PA LATERAL CLINICAL HISTORY: chest pain TECHNIQUE: 2D digital imaging was performed of the chest. Two images were obtained. PA and lateral views were obtained. COMPARISON: CR XR CHEST 2V PA LATERAL from 10/21/2017 FINDINGS: MEDIASTINUM: Normal. HEART: Normal. PULMONARY VASCULATURE: Normal. LUNGS: Clear. PLEURAL SPACE: No pleural effusion or pneumothorax. BONE:Within normal limits for the patient's age. OTHER FINDINGS:Normal. IMPRESSION: No acute pulmonary findings Radiologic Study #2: Attestation: I personally reviewed and interpreted this imaging study as follows: Imaging: CT Scan Radiologist's impression: PROCEDURE INFORMATION: Exam: CTA Chest With Contrast Exam date and time: 05/23/2021 6:27 PM Age: 46 years old Clinical indication: Llq pain, leukocytosis TECHNIQUE: Imaging protocol: Computed tomographic angiography of the chest with contrast. 3D rendering (Not supervised by radiologist): MIP and/or 3D reconstructed images were created by the technologist. Radiation optimization: All CT scans at this facility use at least one of these dose optimization techniques: automated exposure control; mA and/or kV adjustment per patient size (includes targeted exams where dose is matched to clinical indication); or iterative reconstruction. Contrast material: OMNIPAQUE 350; Contrast volume: 100 ml; Contrast route: INTRAVENOUS (IV); COMPARISON: CR XR CHEST 2V PA LATERAL 05/23/2021 4:08 PM FINDINGS: Pulmonary arteries: No pulmonary emboli. Aorta: No aortic aneurysm. No aortic dissection. Lungs: No consolidation. No masses. Pleural spaces: No pneumothorax. No pleural effusion. Heart: No cardiomegaly. There is a small pericardial effusion noted. Lymph nodes: No enlarged lymph nodes. Bones/joints: No acute fracture. Soft tissues: Unremarkable. IMPRESSION:1. No evidence of acute pulmonary emboli nor pulmonary infarction. 2. Small pericardial effusion noted.This requires appropriate follow-up. 3. There is an IUD in satisfactory position in the uterine canal. 4. No abnormal adnexal masses. No free fluid in the pelvis nor elsewhere in the abdomen Lab Data Lab results reviewed: Yes I reviewed the patient's lab results. Labs: Laboratory Tests Range/Units 05/23/21 05/23/21 05/23/21 14:48 14:48 14:48 WBC (4.4-10.8) 10^3/uL 13.65 H RBC (3.93-5.22) 10^6/uL 4.89 Hgb (11.2-15.7) g/dL 14.7 Hct (36.0-46.0) % 44.8 MCV (80-95) fL 91.6 MCH (27.0-33.0) pg 30.1 MCHC (32.0-36.0) % 32.8 RDW (11.7-14.6) % 14.7 H Plt Count (130-400) 10^3/uL 392 MPV (8.0-11.0) fL 9.2 Immature Gran % 0.4 Neutrophils % 61.6 Lymphocytes % 30.3 Monocytes % 5.5 Eosinophils % 1.5 Basophils % 0.7 Nucleated RBC % % 0 Absolute Neutrophils (1.2-6.7) 10^3/uL 8.41 H Absolute Lymphocytes (1.2-3.4) 10^3/uL 4.14 H Absolute Monocytes (0.1-0.8) 10^3/uL 0.75 Absolute Eosinophils (0.0-0.7) 10^3/uL 0.20 Absolute Basophils (0.0-0.2) 10^3/uL 0.10 D-Dimer (<500) ng/mlFEU Sodium (136-145) mmol/L 138 Potassium (3.5-5.1) mmol/L 3.9 Chloride (98-107) mmol/L 103 Carbon Dioxide (21.0-32.0) mmol/L 26.6 Anion Gap (3-11) mmol/L 8.4 BUN (7-18) mg/dL 12 Creatinine (0.55-1.02) mg/dL 1.0 Estimated GFR/1.73 m2 (mL/min/1.73m2) 59.43 Glucose (74-106) mg/dL 95 Calcium (8.5-10.1) mg/dL 8.9 Magnesium (1.8-2.4) mg/dL 2.1 Total Bilirubin (0.2-1.0) mg/dL 0.5 AST (15-37) U/L 20 ALT (14-59) U/L 23 Alkaline Phosphatase (46-116) U/L 76 Troponin I (<or=60) ng/L < 50 Total Protein (6.4-8.2) g/dL 8.1 Albumin (3.4-5.0) g/dL 4.1 Lipase (73-393) U/L 130 TSH (0.36-3.74) uIU/mL 157.72 H Free T4 (0.76-1.46) ng/dL 0.31 L Urine Color (Yellow) Urine Clarity (Clear) Urine pH (5-8) Ur Specific [place] (1.005-1.025) Urine Protein (Negative) mg/dL Urine Ketones (Negative) mg/dL Urine Blood (Negative) Urine Nitrite (Negative) Urine Bilirubin (Negative) Urine Urobilinogen (Up TO 0.2) EU/dL Ur Leukocyte Esterase (Negative) Urine RBC (0-2) HPF Urine WBC (0-5) HPF Ur Epithelial Cells (Negative) HPF Urine Crystals (Negative) HPF Urine Bacteria (Negative) HPF Urine Casts (Negative) LPF Urine Mucus (Negative) Ur Culture Indicated? Urine Glucose (Negative) mg/dL COVID-19 Source SARS-CoV-2 (PCR) (Negative) Range/Units 05/23/21 05/23/2122 14:48 15:04 15:34 WBC (4.4-10.8) 10^3/uL RBC (3.93-5.22) 10^6/uL Hgb (11.2-15.7) g/dL Hct (36.0-46.0) % MCV (80-95) fL MCH (27.0-33.0) pg MCHC (32.0-36.0) % RDW (11.7-14.6) % Plt Count (130-400) 10^3/uL MPV (8.0-11.0) fL Immature Gran % Neutrophils % Lymphocytes % Monocytes % Eosinophils % Basophils % Nucleated RBC % % Absolute Neutrophils (1.2-6.7) 10^3/uL Absolute Lymphocytes (1.2-3.4) 10^3/uL Absolute Monocytes (0.1-0.8) 10^3/uL Absolute Eosinophils (0.0-0.7) 10^3/uL Absolute Basophils (0.0-0.2) 10^3/uL D-Dimer (<500) ng/mlFEU 590 H Sodium (136-145) mmol/L Potassium (3.5-5.1) mmol/L Chloride (98-107) mmol/L Carbon Dioxide (21.0-32.0) mmol/L Anion Gap (3-11) mmol/L BUN (7-18) mg/dL Creatinine (0.55-1.02) mg/dL Estimated GFR/1.73 m2 (mL/min/1.73m2) Glucose (74-106) mg/dL Calcium (8.5-10.1) mg/dL Magnesium (1.8-2.4) mg/dL Total Bilirubin (0.2-1.0) mg/dL AST (15-37) U/L ALT (14-59) U/L Alkaline Phosphatase (46-116) U/L Troponin I (<or=60) ng/L Total Protein (6.4-8.2) g/dL Albumin (3.4-5.0) g/dL Lipase (73-393) U/L TSH (0.36-3.74) uIU/mL Free T4 (0.76-1.46) ng/dL Urine Color (Yellow) Yellow Urine Clarity (Clear) Clear Urine pH (5-8) 6.0 Ur Specific [place] (1.005-1.025) 1.020 Urine Protein (Negative) mg/dL Negative Urine Ketones (Negative) mg/dL Negative Urine Blood (Negative) Trace-intact H Urine Nitrite (Negative) Negative Urine Bilirubin (Negative) Negative Urine Urobilinogen (Up TO 0.2) EU/dL 0.2 Ur Leukocyte Esterase (Negative) Negative Urine RBC (0-2) HPF Negative Urine WBC (0-5) HPF 3-5 Ur Epithelial Cells (Negative) HPF Moderate Urine Crystals (Negative) HPF Negative Urine Bacteria (Negative) HPF Negative Urine Casts (Negative) LPF Negative Urine Mucus (Negative) Negative Ur Culture Indicated? No/Sq. Contamination Urine Glucose (Negative) mg/dL Negative COVID-19 Source Nasal/Nares SARS-CoV-2 (PCR) (Negative) Negative Range/Units 05/23/21 18:00 WBC (4.4-10.8) 10^3/uL RBC (3.93-5.22) 10^6/uL Hgb (11.2-15.7) g/dL Hct (36.0-46.0) % MCV (80-95) fL MCH (27.0-33.0) pg MCHC (32.0-36.0) % RDW (11.7-14.6) % Plt Count (130-400) 10^3/uL MPV (8.0-11.0) fL Immature Gran % Neutrophils % Lymphocytes % Monocytes % Eosinophils % Basophils % Nucleated RBC % % Absolute Neutrophils (1.2-6.7) 10^3/uL Absolute Lymphocytes (1.2-3.4) 10^3/uL Absolute Monocytes (0.1-0.8) 10^3/uL Absolute Eosinophils (0.0-0.7) 10^3/uL Absolute Basophils (0.0-0.2) 10^3/uL D-Dimer (<500) ng/mlFEU Sodium (136-145) mmol/L Potassium (3.5-5.1) mmol/L Chloride (98-107) mmol/L Carbon Dioxide (21.0-32.0) mmol/L Anion Gap (3-11) mmol/L BUN (7-18) mg/dL Creatinine (0.55-1.02) mg/dL Estimated GFR/1.73 m2 (mL/min/1.73m2) Glucose (74-106) mg/dL Calcium (8.5-10.1) mg/dL Magnesium (1.8-2.4) mg/dL Total Bilirubin (0.2-1.0) mg/dL AST (15-37) U/L ALT (14-59) U/L Alkaline Phosphatase (46-116) U/L Troponin I (<or=60) ng/L < 50 Total Protein (6.4-8.2) g/dL Albumin (3.4-5.0) g/dL Lipase (73-393) U/L TSH (0.36-3.74) uIU/mL Free T4 (0.76-1.46) ng/dL Urine Color (Yellow) Urine Clarity (Clear) Urine pH (5-8) Ur Specific [place] (1.005-1.025) Urine Protein (Negative) mg/dL Urine Ketones (Negative) mg/dL Urine Blood (Negative) Urine Nitrite (Negative) Urine Bilirubin (Negative) Urine Urobilinogen (Up TO 0.2) EU/dL Ur Leukocyte Esterase (Negative) Urine RBC (0-2) HPF Urine WBC (0-5) HPF Ur Epithelial Cells (Negative) HPF Urine Crystals (Negative) HPF Urine Bacteria (Negative) HPF Urine Casts (Negative) LPF Urine Mucus (Negative) Ur Culture Indicated? Urine Glucose (Negative) mg/dL COVID-19 Source SARS-CoV-2 (PCR) (Negative) ECG Data Attestation: I personally reviewed and interpreted this ECG (s) as follows: Interpretation: Please see orders by Dr. Bullock. Sinus rhythm, ventricular rate of 71, q wave V2 through V5, no STEMI HPI General Mode of arrival: ambulatory . Date/Time Provider Initiated Documentation: 05/23/21 14:15 . Limitations to Documentation: no limitations . Information obtained by: patient . History of Present Illness 46 year old F presents to the emergency department with the chief complaint of abd/chest pain, described as moderate, with intensity rated at 6. Quality is described as aching, and is localized to the chest, abdomen and left. Patient reports no radiation. Patient started experiencing this day(s) (5) and it has been constant. improves with No relieving factors improve symptom(s), No exacerbating factors reported . Patient notes no other symptoms.. Patient did receive the following treatments prior to arrival, NSAID Related Data Home Medications Medication Instructions Recorded Confirmed levonorgestrel 20 mcg/24 hours (7 1 ea INTRAUTERINE ONCE #1 implant 12/27/14 05/23/21 yrs) 52 mg intrauterine device (Mirena) levothyroxine 112 mcg capsule 112 mcg PO DAILY #90 cap 05/23/21 05/23/21 Previous Rx's Medication Instructions Recorded levothyroxine 112 mcg capsule 112 mcg PO DAILY #90 cap 05/23/21 Allergies Allergy/AdvReac Type Severity Reaction Status Date / Time nicotine [From [facility]] AdvReac Intermediate Nightmares Unverified 05/23/21 14:45 General Stated Complaint: Abd Prob ADRIEN: 3 Review of Systems Constitutional Constitutional: Denies fever(s) and Denies headache(s) Eyes Eyes: Denies change in vision ENT Ears, Nose, Mouth, and Throat: Denies headache(s) and Denies neck pain Cardiovascular Cardiovascular: Reports chest pain and Denies dyspnea Respiratory Respiratory: Denies cough and Denies dyspnea Gastrointestinal Gastrointestinal: Reports abdominal pain, Denies nausea and Denies vomiting Genitourinary Genitourinary: Denies dysuria Musculoskeletal Musculoskeletal: Denies back pain, Denies neck pain, Denies numbness and Denies tingling Integumentary/Breasts Skin/Breast: Denies rash Neurologic Neurologic: Denies headache(s), Denies numbness and Denies tingling Hematologic/Lymphatic Hematologic/Lymphatic: Denies easy bleeding and Denies easy bruising PFSH All Active Problems (Updated 05/23/21 @ 19:37 by DELBERT Hernánedz) Chest pain (Acute) Abdominal pain (Acute) Hypothyroidism (Chronic) Pericardial effusion (Acute) Breast abscess of female (Acute) Abscess drained, will observe for 24 hours given the extent of erythema. Continue vancomycin and zosyn while awaiting cultures Medical History (Updated 05/23/21 @ 19:37 by DELBERT Hernández) DJD (degenerative joint disease) of cervical spine Hx of abscess of breast Hyperlipemia Hypothyroid Obesity Surgical History Status post incision and drainage Family History Mother Heart disease Father Heart disease Hyperlipidemia Grandfather Personal history of malignant neoplasm colon Maternal Aunt Personal history of malignant neoplasm breast Social History Smoking/Tobacco Use Status: Current every day Tobacco Type: cigarettes Smoking risk assessment performed?: Yes Alcohol Intake: never Drug use: Daily Substance use type: marijuana Do you feel safe at home: Yes Do you feel safe in your relationship?: Yes Exam Const General: cooperative, healthy appearing, comfortable and no acute distress Orientation: alert, awake and oriented x3 HENMT Head: normal to inspection, normocephalic and atraumatic Face and sinus: normal facial exam Mouth: moist mucous membranes Eyes General: appearance normal, both eyes and all related structures Conjunctivae: conjunctivae normal Neck Neck: normal visual inspection, full ROM, trachea midline, supple and nontender Chest Chest: normal inspection of the chest and tenderness Chest/axillae images: 1. Tender Resp Effort & Inspection: normal respiratory effort and able to speak in complete sentences Auscultation: clear to auscultation bilaterally Cardio Rate: regular rate Rhythm: regular rhythm GI Inspection: normal to inspection Palpation: soft, not firm, no guarding, no pulsatile masses and tender (Diffuse, mild left-sided) Negative for with no rebound tenderness Auscultation: normal bowel sounds Back/Spine/Pelvis Back: no CVA tenderness and No back tenderness Skin General skin exam: no rashes or lesions noted Neuro General: patient alert, patient awake, patient oriented x3, moves all extremities and no focal motor deficits Cognition: normal cognition Speech: speech normal Gait: normal gait Motor: muscle tone normal throughout Sensory Exam: no sensory deficits noted Extrem General: normal to inspection, full ROM, capillary refill normal, no pedal edema and no calf tenderness Psych Appearance: grossly normal Mental Status: mental status grossly normal Course Vital Signs Vital signs: Vital Signs Temperature 37.0 C 05/23/21 14:31 Pulse 78 05/23/21 14:31 Respiratory Rate 16 05/23/21 14:31 Blood Pressure 151/96 H 05/23/21 14:31 Pulse Oximetry 96 05/23/21 14:31 Temperature 37.0 C 05/23/21 14:31 Temperature Source Oral 05/23/21 14:31 Pulse 78 05/23/21 14:31 Respiratory Rate 16 05/23/21 14:36 Respiratory Effort Non-Labored 05/23/21 14:43 Respiratory Depth Normal 05/23/21 14:36 Respiratory Pattern Normal 05/23/21 14:36 Blood Pressure 151/96 H 05/23/21 14:31 Blood Pressure Position Sitting 05/23/21 14:31 Pulse Oximetry 96 05/23/21 14:31 Oxygen Delivery Method Room Air 05/23/21 14:31 Oxygen Flow Rate 0 05/23/21 14:31 Pain Level 8 05/23/21 14:36 Lab/Test Results Lab/Test Results: Laboratory Tests Range/Units 05/23/21 05/23/21 05/23/21 14:48 14:48 15:04 WBC (4.4-10.8) 10^3/uL 13.65 H RBC (3.93-5.22) 10^6/uL 4.89 Hgb (11.2-15.7) g/dL 14.7 Hct (36.0-46.0) % 44.8 MCV (80-95) fL 91.6 MCH (27.0-33.0) pg 30.1 MCHC (32.0-36.0) % 32.8 RDW (11.7-14.6) % 14.7 H Plt Count (130-400) 10^3/uL 392 MPV (8.0-11.0) fL 9.2 Immature Gran % 0.4 Neutrophils % 61.6 Lymphocytes % 30.3 Monocytes % 5.5 Eosinophils % 1.5 Basophils % 0.7 Nucleated RBC % % 0 Absolute Neutrophils (1.2-6.7) 10^3/uL 8.41 H Absolute Lymphocytes (1.2-3.4) 10^3/uL 4.14 H Absolute Monocytes (0.1-0.8) 10^3/uL 0.75 Absolute Eosinophils (0.0-0.7) 10^3/uL 0.20 Absolute Basophils (0.0-0.2) 10^3/uL 0.10 Sodium (136-145) mmol/L 138 Potassium (3.5-5.1) mmol/L 3.9 Chloride (98-107) mmol/L 103 Carbon Dioxide (21.0-32.0) mmol/L 26.6 Anion Gap (3-11) mmol/L 8.4 BUN (7-18) mg/dL 12 Creatinine (0.55-1.02) mg/dL 1.0 Estimated GFR/1.73 m2 (mL/min/1.73m2) 59.43 Glucose (74-106) mg/dL 95 Calcium (8.5-10.1) mg/dL 8.9 Magnesium (1.8-2.4) mg/dL 2.1 Total Bilirubin (0.2-1.0) mg/dL 0.5 AST (15-37) U/L 20 ALT (14-59) U/L 23 Alkaline Phosphatase (46-116) U/L 76 Troponin I (<or=60) ng/L < 50 Total Protein (6.4-8.2) g/dL 8.1 Albumin (3.4-5.0) g/dL 4.1 Lipase (73-393) U/L 130 Urine Color (Yellow) Yellow Urine Clarity (Clear) Clear Urine pH (5-8) 6.0 Ur Specific [place] (1.005-1.025) 1.020 Urine Protein (Negative) mg/dL Negative Urine Ketones (Negative) mg/dL Negative Urine Blood (Negative) Trace-intact H Urine Nitrite (Negative) Negative Urine Bilirubin (Negative) Negative Urine Urobilinogen (Up TO 0.2) EU/dL 0.2 Ur Leukocyte Esterase (Negative) Negative Urine RBC (0-2) HPF Negative Urine WBC (0-5) HPF 3-5 Ur Epithelial Cells (Negative) HPF Moderate Urine Crystals (Negative) HPF Negative Urine Bacteria (Negative) HPF Negative Urine Casts (Negative) LPF Negative Urine Mucus (Negative) Negative Ur Culture Indicated? No/Sq. Contamination Urine Glucose (Negative) mg/dL Negative COVID-19 Source Range/Units 05/23/21 15:34 WBC (4.4-10.8) 10^3/uL RBC (3.93-5.22) 10^6/uL Hgb (11.2-15.7) g/dL Hct (36.0-46.0) % MCV (80-95) fL MCH (27.0-33.0) pg MCHC (32.0-36.0) % RDW (11.7-14.6) % Plt Count (130-400) 10^3/uL MPV (8.0-11.0) fL Immature Gran % Neutrophils % Lymphocytes % Monocytes % Eosinophils % Basophils % Nucleated RBC % % Absolute Neutrophils (1.2-6.7) 10^3/uL Absolute Lymphocytes (1.2-3.4) 10^3/uL Absolute Monocytes (0.1-0.8) 10^3/uL Absolute Eosinophils (0.0-0.7) 10^3/uL Absolute Basophils (0.0-0.2) 10^3/uL Sodium (136-145) mmol/L Potassium (3.5-5.1) mmol/L Chloride (98-107) mmol/L Carbon Dioxide (21.0-32.0) mmol/L Anion Gap (3-11) mmol/L BUN (7-18) mg/dL Creatinine (0.55-1.02) mg/dL Estimated GFR/1.73 m2 (mL/min/1.73m2) Glucose (74-106) mg/dL Calcium (8.5-10.1) mg/dL Magnesium (1.8-2.4) mg/dL Total Bilirubin (0.2-1.0) mg/dL AST (15-37) U/L ALT (14-59) U/L Alkaline Phosphatase (46-116) U/L Troponin I (<or=60) ng/L Total Protein (6.4-8.2) g/dL Albumin (3.4-5.0) g/dL Lipase (73-393) U/L Urine Color (Yellow) Urine Clarity (Clear) Urine pH (5-8) Ur Specific [place] (1.005-1.025) Urine Protein (Negative) mg/dL Urine Ketones (Negative) mg/dL Urine Blood (Negative) Urine Nitrite (Negative) Urine Bilirubin (Negative) Urine Urobilinogen (Up TO 0.2) EU/dL Ur Leukocyte Esterase (Negative) Urine RBC (0-2) HPF Urine WBC (0-5) HPF Ur Epithelial Cells (Negative) HPF Urine Crystals (Negative) HPF Urine Bacteria (Negative) HPF Urine Casts (Negative) LPF Urine Mucus (Negative) Ur Culture Indicated? Urine Glucose (Negative) mg/dL COVID-19 Source Nasal/Nares POC- Test(urine) Negative
[2021-05-23 16:23] VITALS: BP 138/82; PULSE 67; RESP 17; O2SAT 97
[2021-05-23 16:36] LABS: TSH (W/Ref FT4) 157.72 uIU/mL (0.36-3.74)
[2021-05-23 16:42] LABS: COVID-19 PCR Negative (Negative)
[2021-05-23 16:54] LABS: D-Dimer 590 ng/mlFEU (<500)
--- NOTE | 2021-05-23 16:57 | DI.CT_ITS ---
Exam(s) CT CHEST PE ABD PELVIS W EXAM: CT CHEST PE ABD PELVIS W CLINICAL HISTORY: LLQ pain, leukocytosis. TECHNIQUE: Imaging Protocol: Axial CT angiography was performed with multi-slice acquisition and m ulti-planar and/or 3D reconstructions. CONTRAST MATERIAL: Intravenous: Omnipaque 350 Contrast volume:100 ml Oral: None COMPARISON: No exams were available for comparison FINDINGS: CHEST: PULMONARY ARTERIES: There are no intra-arterial filling defects to suggest the presence of acute pulm onary emboli. LUNGS: There is no evidence of pulmonary infarction.No infiltrates. There are no pleural effusions.N o masses. MEDIASTINUM: There is no hilar nor mediastinal adenopathy. Visualized thyroid unremarkable. CARDIAC: Heart size upper normal. There is a small pericardial effusion. Maximum thickness 5 millim eters.Caliber thoracic aorta is within normal limits. There is no evidence of aortic dissection. OSSEOUS: No significant osseous lesions.. ABDOMEN: There is no ascites. LIVER: There are no focal hepatic lesions nor dilatation of intrahepatic ducts. GALLBLADDER/BILIARY: No obvious gallbladder pathology. CBD is not dilated. PANCREAS: No evidence of pancreatic mass nor dilatation of the pancreatic duct. SPLEEN: Spleen is not enlarged. There are no intrasplenic lesions. Splenic and portal veins are hines nt. ADRENALS: There are no significant adrenal masses. KIDNEYS:No cysts evident. No calculi nor hydronephrosis. No solid renal masses. ABDOMINAL AORTA: Abdominal aorta is not enlarged. LYMPH NODES: There is no retroperitoneal or para-aortic adenopathy. ABDOMINAL WALL/GI: No evidence of significant anterior abdominal wall hernia. No bowel obstruction. PELVIS: LYMPH NODES: There is no intrapelvic nor inguinal adenopathy. GI: No evidence of appendicitis.No evidence of sigmoid diverticulitis. URINARY BLADDER: No calculi nor masses evident REPRODUCTIVE: There is an IUD in satisfactory position within the uterine canal. No abnormal adnexal masses. No free fluid. OSSEOUS: No significant osseous lesions. IMPRESSION: 1. No evidence of acute pulmonary emboli nor pulmonary infarction. 2. Small pericardial effusion noted.This requires appropriate follow-up. 3. There is an IUD in satisfactory position in the uterine canal. 4. No abnormal adnexal masses. No free fluid in the pelvis nor elsewhere in the abdomen RADIATION DOSE DELIVERED: 2,242.56mGy.cm Total DLP DATA REPOSITORY: All CT scans at this facility are submitted to the National Radiology Data Registry (NRDR) Dose Index Registry (DIR) with the [employer] (A[employer]). RADIATION OPTIMIZATION: All CT scans at this facility use at least one of these dose optimization te chniques: automated exposure control; mA and/or kV adjustment per patient size (includes targeted exa ms where dose is matched to clinical indication); or iterative reconstruction.
[2021-05-23 17:07] LABS: FREE T4 0.31 ng/dL (0.76-1.46)
[2021-05-23 18:25] LABS: Troponin I < 50 ng/L (<or=60)
[2021-05-23 18:46] VITALS: BP 132/77; PULSE 77; RESP 16; TEMP 36.7; O2SAT 98
[2021-05-23] MEDS: Omnipaque 350 MG/ML 100 ML BTL IV (18:56)
--- NOTE | 2021-05-23 19:17 | DI.VRAD_ITS ---
PROCEDURE INFORMATION: Exam: CTA Chest With Contrast Exam date and time: 05/23/2021 6:27 PM Age: 46 years old Clinical indication: Llq pain, leukocytosis TECHNIQUE: Imaging protocol: Computed tomographic angiography of the chest with contrast. 3D rendering (Not supervised by radiologist): MIP and/or 3D reconstructed images were created by the technologist. Radiation optimization: All CT scans at this facility use at least one of these dose optimization techniques: automated exposure control; mA and/or kV adjustment per patient size (includes targeted exams where dose is matched to clinical indication); or iterative reconstruction. Contrast material: OMNIPAQUE 350; Contrast volume: 100 ml; Contrast route: INTRAVENOUS (IV); COMPARISON: CR XR CHEST 2V PA LATERAL 05/23/2021 4:08 PM FINDINGS: Pulmonary arteries: No pulmonary emboli. Aorta: No aortic aneurysm. No aortic dissection. Lungs: No consolidation. No masses. Pleural spaces: No pneumothorax. No pleural effusion. Heart: No cardiomegaly. There is a small pericardial effusion noted. Lymph nodes: No enlarged lymph nodes. Bones/joints: No acute fracture. Soft tissues: Unremarkable. IMPRESSION: 1. No pulmonary embolism. 2. Small pericardial effusion noted. Correlate with clinical findings and echocardiography may be considered. PROCEDURE INFORMATION: Exam: CT Abdomen And Pelvis With Contrast Exam date and time: 05/23/2021 6:27 PM Age: 46 years old Clinical indication: Other: Llq pain, leukocytosis TECHNIQUE: Imaging protocol: Computed tomography of the abdomen and pelvis with contrast. 3D rendering (Not supervised by radiologist): MIP and/or 3D reconstructed images were created by the technologist. Radiation optimization: All CT scans at this facility use at least one of these dose optimization techniques: automated exposure control; mA and/or kV adjustment per patient size (includes targeted exams where dose is matched to clinical indication); or iterative reconstruction. Contrast material: OMNIPAQUE 350; Contrast volume: 100 ml; Contrast route: INTRAVENOUS (IV); COMPARISON: CR XR CHEST 2V PA LATERAL 05/23/2021 4:08 PM FINDINGS: Liver: Normal. No mass. Gallbladder and bile ducts: Normal. No calcified stones. No ductal dilation. Pancreas: Normal. No ductal dilation. Spleen: Normal. No splenomegaly. Adrenal glands: Normal. No mass. Kidneys and ureters: Normal. No hydronephrosis. Stomach and bowel: Unremarkable. No obstruction. No mucosal thickening. Appendix: No evidence of appendicitis. Intraperitoneal space: No free air. No significant fluid collection. Vasculature: Unremarkable. No abdominal aortic aneurysm. Lymph nodes: Unremarkable. No enlarged lymph nodes. Urinary bladder: Unremarkable as visualized. Reproductive: An intrauterine device is noted in place. Bones/joints: No acute fracture. No dislocation. Soft tissues: Unremarkable. IMPRESSION: 1. No evidence of bowel obstruction or acute inflammation in the abdomen and pelvis. 2. Intrauterine device noted in place. Dictated and Authenticated by: Ольга Elliott MD. Ordering:JUNAID Nelson MD
[2021-05-23 19:41] VITALS: BP 138/76; PULSE 77; RESP 16; TEMP 36.8; O2SAT 98
--- NOTE | 2021-05-23 22:08 | NUR.NOTE ---
Referral to Care Management to establish pcp deanne for Chest Pain, Abdominal Pain, Hypothyroidism, Pericardial Effusion.Nursing Note:
== END 2021-05-23 19:43 | disposition home or self-care (01) ==
PROVIDERS: Emergency Provider Physician Assistant
DX: R07.9 Chest pain, unspecified (principal); R10.9 Unspecified abdominal pain; E03.9 Hypothyroidism, unspecified; Z20.822 Contact with and (suspected) exposure to COVID-19; I30.9 Acute pericarditis, unspecified; Z91.14 Patient's other noncompliance with medication regimen
CPT/HCPCS: 36415; 71275; 74177; 80053; 81025; 83690; 87635; 93005; 99284; 99285; 71046; 81003; 81015; 83735; 84439; 84443; 84484; 85025; 85379; 93010; J3490

== ENCOUNTER 2021-06-20 01:48 | Outpatient (CLI) | payer MEDICAID, SELFPAY | END 2021-06-20 01:49 | disposition home or self-care (01) | LOC: LOS 01:48 | PROVIDERS: PCP Nurse Practitioner Family; Visit Provider Nurse Practitioner Family ==

== ENCOUNTER 2021-10-17 07:01 | Day surgery (SDC) | payer MEDICAID, SELFPAY ==
--- NOTE | 2021-10-16 20:38 | W.COLOREPORT ---
Colonoscopy Report Date of procedure: 10/17/21 Pre-op diagnosis general: CRC screen Post-op diagnosis procedure note: other (diverticula ) Surgeon: Sammie Ortiz Anesthesia Type: General:No Airway Estimated blood loss (mL): 0 Pathology: none sent Complications: None Disposition: same day Prep: Miralax/Dulcolax Retraction Time: 8 mins Procedure Description: After informed consent was obtained the patient was taken to the procedure room and placed in a left decubitous position. Monitors were applied and a time out was done. The patients name, date of , procedure, allergies to medications and metal in their body was reviewed. The patient was then sedated. Once sedated and comfortable a rectal exam was done. External exam was normal. Internal exam revealed a normal sphincter tone and no palpable masses. The scope was then introduced and retrofelexed. No internal hemorrhoids were identified. The scope was then advanced to the cecum without difficulty. The TI and appendiceal orifice were identified. The prep was BB PS 3 in all segments for a total of 9. The scope was then slowly retracted over 8 minutes back into the rectum. There are no polyps or AVMs visualized today. The mucosa is pink and healthy with a normal vascular pattern. She has a few small scattered diverticula confined in the sigmoid colon. There is no signs of active bleeding or infection.. The scope was removed and the patient was woken up and taken back to Same day surgery in stable condition. The patient tolerated the procedure well and there were no immediate complications. Follow up: The patient should follow up in 10 years unless they develop changes in bowel habits or other new gastrointestinal complaints.
--- NOTE | 2021-10-16 20:39 | PDOC.DSDIS_ITS ---
Discharge Plan Disposition Patient Disposition: HOME Condition: Good Discharge Details Reason For Visit: colonoscopy Attending Provider: Sammie Ortiz Primary Care Provider: Peter Laboy Home Meds and New Rx's Prescriptions: Continued levothyroxine 112 mcg capsule 112 mcg PO DAILY Qty: 90 0RF Label Comments: Pt reports no longer taking. Mirena 1 EACH intrauterine device 1 ea Intrauterine ONCE Qty: 1 Label Comments: in place. To be switched out in 2022 Discontinued bisacodyl [Dulcolax (bisacodyl)] 5 mg tablet,delayed release (DR/EC) 5 mg PO ONCE Qty: 4 0RF Rx Instructions: Take according to provider's instructions for colonoscopy prep. polyethylene glycol 3350 17 gram/dose powder 17 g PO ONCE Qty: 238 0RF Rx Instructions: To be taken as directed by prescriber's office for colonoscopy prep. Discharge Instructions Additional Instructions: DSU Colonoscopy Post- Op Instructions Instructions for Everyone who is given Anesthesia: For your safety, please do the following for the next twenty-four (24) hours: *Do Not operate a motor vehicle (car, truck, motorcycle, etc.) *Do Not drink alcoholic beverages or use any recreational drugs for the first 24 hours or while taking pain medications. The medications in your body may have a reaction that can be dangerous. *Do Not make any important decisions or sign any important papers. Findings: diverticula Follow up: repeat in 10 yrs time 1. No lifting over 20 pounds or strenuous activity for the first 24 hours after your procedure. After 24 hours there are no restrictions on your activity but you may feel fatigued for a few days. 2. After you arrive home you may have a light meal and return to your normal diet as you can tolerate it without feeling sick to your stomach. 3. You may have a bloated, gaseous feeling in your belly (abdomen) after a colonoscopy. Passing gas and belching will help. Walking or lying down on your left side with your knees flexed may relieve the discomfort. Call the office at [phone] (Office) or [phone] (Hospital) right away if you notice any of the following: a.Vomiting of blood or ?coffee ground stools?. b.Rectal bleeding 1Tbsp, blood clots or continuous bleeding. c.Severe belly (abdominal) pain. d.A hard distended belly (abdomen) and an inability to pass gas. 4. Please don?t expect to have a normal BM (bowel movement) for 2-3 days after your procedure. 5. If there are questions regarding the findings of your procedure, please contact your doctor 6. If you are unable to contact your doctor with a problem, contact the hospital at [phone]. 7. Continue all your regular medications unless directed otherwise. I understand the above instructions and have no questions. Signature of Patient or Adult Escort Name of Responsible Adult Escort Signature of Nurse Date/Time Activity:: see above Diet:: see above
[2021-10-17 07:24] VITALS: BP 139/92; PULSE 78; RESP 16; TEMP 36.3; O2SAT 98
[2021-10-17] MEDS: Lactated Ringers 1,000 ML 80 ML IV (07:57)
--- NOTE | 2021-10-17 08:52 | ANES.PREOP_ITS ---
General Info Date of Service Date Performed: 10/17/21 Height: 5 ft 9 in Weight: 123.4 kg Body Mass Index (BMI): 40.1 Surgical Procedure: Operation Date: 10/17/21 08:35 Proposed Procedure Side Surgeon fawad Ortiz, Meds Allergies and Home Medications Allergies Allergy/AdvReac Type Severity Reaction Status Date / Time nicotine [From Nicoderm CQ] AdvReac Intermediate Nightmares Unverified 10/17/21 07:39 Home Medication Medication Instructions Recorded levonorgestrel 20 mcg/24 hours (7 1 ea intrauterine ONCE #1 implant 12/27/14 yrs) 52 mg intrauterine device (Mirena) levothyroxine 112 mcg capsule 112 mcg PO DAILY #90 caps 05/23/21 Current Visit Medications: Current Medications Generic Name Dose Route Start Last Admin Trade Name Freq PRN Reason Stop Dose Admin Ringer's Solution 1,000 mls @ 80 mls/hr 10/17/21 06:00 10/17/21 07:57 IV 11/15/21 23:59 80 mls/hr INFUSION AKIKO Administration IV Miscellaneous Supplies 1 each 10/17/21 06:00 Iv Access IV 11/15/21 23:59 DIRECTED AKIKO Sodium Chloride 0 ml 10/17/21 06:00 Normal Saline Flush 10 Ml Syr IV 11/15/21 23:59 PRN PRN Sodium Chloride 0 ml 10/17/21 06:00 Normal Saline 10 Ml Vial IJ 11/15/21 23:59 DIRECTED PRN Sterile Water 0 ml 10/17/21 06:00 Water,Injection,Sterile 10 Ml Vial IJ 11/15/21 23:59 DIRECTED PRN PFSH Active Problems Active Problems: Problem Status Onset Code Screening for colon cancer Z12.11 Pelvic pain R10.2 Hyperlipidemia E78.5 Hirsutism L68.0 GERD (gastroesophageal reflux disease) K21.9 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 [place] no problem. Cervical radiculitis DJD (degenerative joint disease) of cervical spine Hx of abscess of breast Hypothyroid Obesity Presence of 52 mg levonorgestrel-releasing intrauterine device (IUD) Mirena removed and replaced 06/06/17 Stenosis, cervical spine lue neuropathy Suppurative hidradenitis (12/08/14) Medical History Comments:: 10/17/21 smoked 2 cigarettes 10/16/21 smoked marijuana Surgical History Surgical History Status post incision and drainage breast abscess 10/23/17 Tobacco Smoking/Tobacco Use Status: Current every day Tobacco Type: cigarettes Smoking cigarettes per day: 10 Passive smoking exposure: Yes Second hand exposure: Yes Alcohol Alcohol Intake: never Substance Use Substance use: Daily Substance use type: marijuana Details: smoked marijuana 10/16/21 Prental History History 1 Para 1 Hx # Term Pregnancies Multiple births Hx # Pregnancies Ectopic pregnancies AB induced Hx Number of Living Children 1 AB spontaneous Past Pregnancies Del. Date GA/Weeks # Preg Succ Route Wgt Sex Labor Lgth [facility]h [facility] 2721.554 g Female Vital Signs and Lab Results Vital Signs Most Recent Vital Signs in EMR: Most Recent Vital Signs Temp Pulse Resp BP Pulse Ox 36.3 C L 78 16 139/92 H 98 10/17/21 07:24 10/17/21 07:24 10/17/21 07:24 10/17/21 07:24 10/17/21 07:24 Point of Care Results Point of Care Results: POC- Test(urine) Negative 10/17/21 07:34 Lab Results Blood Type / Crossmatch: No Data to Display Complete Blood Count: No Data to Display Complete Metabolic Panel: No Data to Display Liver Function Panel: No Data to Display Coagulation Panel: No Data to Display Cardiac Panel: No Data to Display Arterial Blood Gas: No Data to Display Venous Blood Gas: No Data to Display Pancreas Panel: No Data to Display Thyroid Panel: No Data to Display Infectious Disease: 2 No Data to Display Blood Cultures: No Data to Display Toxicology Panel: No Data to Display Panel: No Data to Display Imaging and Studies Imaging and Studies Study information below may be from another EMR and interpreted by another provider. Please see original notes in EMR for more complete details. EKG Summary: 05/23/21: Conclusion Sinus rhythm...normal P axis, V-rate 60- 99 Low voltage, precordial leads...precordial leads <1.0mV Consider anterior infarct...Q >30mS in V2-V5 Anesthesia Assessment and Plan Anesthesia History Personal History: No History of Anesthesia Complications Family History: No Family History of Anesthesia Complications Exercise Tolerance Exercise Tolerance: Metabolic Equivalents>4 Pertinent Negatives Pertinent Negatives: No Symptoms of GERD, No Major Cardiovascular Symptoms or Complaints, No Major Pulmonary Symptoms or Complaints (1/2 pack/day 20 years, marijuana daily ) and No History of CVA/TIA Cardiac & Pulmonary Exam Cardiac Exam: Normal S1/S2 Heart Sounds Pulmonary Exam: Clear Bilateral Breath Sounds Implantable Cardiac Device Does patient have a Pacemaker or an ICD?: No Airway Exam Known Difficult Airway: No Mallampati Class: 4 Mouth Opening: Narrow (< 3cm) Thyromental Distance: Less than 3 cm Neck Range of Motion: Limited ROM Neck Circumference: Thick Teeth Condition: Generalized Poor Dentition and Dental Caries Airway Comments: Denies loose teeth, multiple broken/ missing, chronic abscesses ASA Classification ASA Score: ASA 3 Emergency Case?: No NPO Status NPO Status: NPO Clears >2 hours, Solids >8 hours Status Status: Negative HCG Anesthesia Plan Resuscitation Status: Full Code Anesthesia Technique: General Anesthesia Airway Planned: Natural Airway Monitors Used: Standard Monitors
[2021-10-17 09:08] VITALS: BMI 40.1
[2021-10-17 09:41] VITALS: BP 143/90; PULSE 71; RESP 16; TEMP 36.3; O2SAT 98
[2021-10-17 10:13] VITALS: BP 157/103; PULSE 62; RESP 16; TEMP 36.2; O2SAT 99
--- NOTE | 2021-10-17 11:10 | W.ANESPOSTOP ---
Postoperative Evaluation Date, Time and Location Date Performed: 10/17/21 Time Performed: 10:00 Patient Location: Day Surgery Unit Vital Signs Most Recent Imported Vital Signs: Most Recent Vital Signs Temp Pulse Resp BP Pulse Ox 36.2 C L 62 16 157/103 H 99 10/17/21 10:13 10/17/21 10:13 10/17/21 10:13 10/17/21 10:13 10/17/21 10:13 Pain Score Most Recent Pain Score: Most Recent Pain Score Pain Level 0 10/17/21 10:13 Assessment Mental Status: Awake (Alert & Oriented to Patient Baseline) Airway and Respiratory Function: Patent airway with normal (patient baseline) respiratory exam Cardiovascular Function: Hemodynamically Stable Hydration Status: Adequately Hydrated Nausea & Vomiting: No Nausea or Vomiting Pain: Pt. Denies Any Pain Peripheral Nerve Block: Patient did not receive a nerve block
== END 2021-10-17 10:31 | disposition home or self-care (01) ==
PROVIDERS: PCP Nurse Practitioner Family; Visit Provider Surgery
PROC: 0DJD8ZZ Inspection of Lower Intestinal Tract, Via Natural or Artificial Opening Endoscopic (ICD-10-PCS; CPT 45378; principal; 2021-10-17 08:30)
DX: Z12.11 Encounter for screening for malignant neoplasm of colon (principal); K57.30 Diverticulosis of large intestine without perforation or abscess without bleeding
CPT/HCPCS: 45378; 81025

== ENCOUNTER 2021-11-06 11:57 | Outpatient (REF) | payer MEDICAID, SELFPAY ==
--- NOTE | 2021-11-06 10:50 | PAPFT_PTH ---
PATIENT: Radha Hernandez LOC: [facility] U#:[id number] AGE/SX: 46/F ROOM: RE11/06/[address]: Nelly Mendez MD : [id number] BED: DIS: 11/06/2021 SPEC #: [id number] RECD: 11/06/21 12:37 STATUS: ANAMARIA RESegun #: [id number] AGUSTIN: 11/06/21 10:[address]: Nelly Mendez DEPT: [facility] Cytology RECD BY: Tana Wilkins ENTERED: 11/06/21 12:37 SP TYPE: PAPFT OTHR DR: Peter Laboy, DANILO Tissues: 1 - CX/ENDOCX FOR PAP SMEARS Procedures: PAP THIN PREP/[facility] Screening HPV DNA PROBE Comments: [id number] (CHLAMYDIA/GC)
[2021-11-07 14:51] LABS: Chlamydia Result Negative (Negative); GC Result Negative (Negative)
== END 2021-11-06 11:58 | disposition home or self-care (01) ==
LOC: LBN 11:57
PROVIDERS: PCP Nurse Practitioner Family; Visit Provider Obstetrics & Gynecology
DX: Z11.3 Encounter for screening for infections with a predominantly sexual mode of transmission (principal); Z12.4 Encounter for screening for malignant neoplasm of cervix; Z11.51 Encounter for screening for human papillomavirus (HPV)
CPT/HCPCS: 87491; 87591; 88142; 87624

== ENCOUNTER → 2021-12-28 02:31 | Outpatient (CLI) | payer MEDICAID, SELFPAY ==
--- NOTE | 2021-12-28 11:35 | DI.MAMMO_ITS ---
Exam(s) MAMMO SCREENING EXAM: MAMMO SCREENING CLINICAL HISTORY: screening,z12.39 TECHNIQUE: Bilateral full field digital CC and MLO mammographic images were obtained with 3D tomosyn thesis and utilizing computer aided detection (CAD). COMPARISON: Available for comparison. FINDINGS: Masses/Architectural Distortion: None seen. Microcalcifications: No suspicious pleomorphic-type are seen. Skin Thickening/Nipple Retraction: None. IMPRESSION: 1. No significant interval change with no specific features of malignancy noted. 2. Unless there is more urgent need, screening mammography is recommended, as per [employer] guidelines. BI-RADS Category 1 - Negative Breast Density - Category B - Scattered areas of fibroglandular density Breast density category C or D implies that the patient has dense breast tissue. Dense breast tissue is very common and is not abnormal but dense breast tissue can make it harder to find cancer on a ma mmogram. Also, dense breast tissue may increase their breast cancer risk. This information about the result of the mammogram report was provided to the patient to raise their awareness. Use this report when you speak with the patient about their risks for breast cancer, which includes their family hist ory. At that time, you may recommend for more screening tests (Ultrasound or MRI) as they might be us eful based on their risk. A negative radiographic report should not delay biopsy if a dominant or clinically suspicious mass is present. Up to ten percent of cancers are not identified on mammography. A negative report may reinforce clinical impression. Adenosis and dense breasts may obscure an underlying neoplasm. False positive reports average 6 to 10%. Patient will receive a letter notifying them of these results.
== END ==
PROVIDERS: PCP Nurse Practitioner Family; Visit Provider Obstetrics & Gynecology
DX: Z12.31 Encounter for screening mammogram for malignant neoplasm of breast (principal)
CPT/HCPCS: 77063; 77067

== ENCOUNTER 2022-11-05 10:58 | Emergency (ER) | payer MEDICAID, SELFPAY ==
[2022-11-05] VITALS (11 sets, daily range): BP systolic 151–203; BP diastolic 73–102; PULSE 55–86; RESP 22; TEMP 36.6; O2SAT 96–100
--- NOTE | 2022-11-05 12:30 | DI.CT_ITS ---
Exam(s) CT ABDOMEN PELVIS W EXAM: CT ABDOMEN PELVIS W CLINICAL HISTORY: LLQ pain. TECHNIQUE: Imaging Protocol: Axial computed tomography images with coronal and sagittal reformatted images were created and reviewed CONTRAST MATERIAL: Intravenous: Omnipaque 350 Contrast volume:100 ml Oral: yes / no COMPARISON: CT CT CHEST PE ABD PELVIS W from 05/23/2021 FINDINGS: ABDOMEN: Lung Bases: Normal where visualized. Improvement in previously noted pericardial effusion. Liver: Mild hepatic steatosis. No measurable mass. Gallbladder and biliary tract: No radiodense calculus or dilation. Pancreas: Normal density, no abnormal calcifications or inflammatory process. Spleen: Normal. Kidneys: Normal size, contour and axis. No radiodense stones or obstructive uropathy. No suspicious m asses seen. Adrenal glands: No masses seen. Vasculature: Abdominal aorta non-dilated. Atherosclerotic changes. Soft tissues: Unremarkable. PELVIS: Bladder: No gross wall thickening. No calculi.No focal mass. Bowel: No obstruction. No bowel wall thickening. Increased stool in sigmoid, colon otherwise unrem arkable. Peritoneal cavity: No ascites, collection or mesenteric inflammatory response. Bones: Degenerative changes in lumbar spine. Reproductive organs: IUD in place. Lymph nodes: Unremarkable. IMPRESSION:: Unremarkable CT scan of the abdomen and pelvis. RADIATION DOSE DELIVERED: 1,475.03mGy.cm Total DLP DATA REPOSITORY: All CT scans at this facility are submitted to the National Radiology Data Registry (NRDR) Dose Index Registry (DIR) with the [employer] [place] [employer] ([employer]). RADIATION OPTIMIZATION: All CT scans at this facility use at least one of these dose optimization te chniques: automated exposure control; mA and/or kV adjustment per patient size (includes targeted exa ms where dose is matched to clinical indication); or iterative reconstruction.
--- NOTE | 2022-11-05 12:34 | ED.GENADUL_ITS ---
Discharge Plan Disposition Patient Disposition: Home Discharge Details Clinical Impression: Abdominal wall pain, Hypertension Primary Care Provider: Peter Laboy ED Provider: Heraclio Hoff Home Meds and New Rx's Prescriptions: Continued lorazepam 1 mg tablet 1 mg PO ONCE Qty: 1 0RF Patient Comments: pt states not taking 11/05/22 Rx Instructions: Take 1 hour prior to imaging. levothyroxine 112 mcg capsule 112 mcg PO DAILY Qty: 90 4RF Patient Comments: Pt reports no longer taking. omeprazole 40 mg capsule,delayed release(DR/EC) 40 mg PO DAILY Patient Comments: TAKE ONE CAPSULE BY MOUTH EVERY DAY Mirena 1 EACH intrauterine device 1 ea Intrauterine ONCE Qty: 1 Patient Comments: in place. To be switched out in 2022 hydrochlorothiazide 25 mg tablet 25 mg PO DAILY Qty: 90 3RF albuterol sulfate [Proventil HFA] 90 mcg/actuation HFA aerosol inhaler 2 puff inhalation Q6H PRN (Reason: shortness of breath or wheezing) Qty: 8.5 3RF Discharge Instructions Instructions: Abdominal Pain (ED), Hypertension (ED) Additional Instructions: Please follow-up with your primary care provider in regards to your blood pressure being elevated along with your abdominal wall pain. If you have any new or significant worsening of symptoms return the emergency department for reassessment otherwise take your medications as prescribed. Referrals: Peter Laboy, [employer] [Primary Care Provider] - 1 week Discharge Data Discharge Date/Time-TO BE ENTERED AT DEPARTURE: 11/05/22 17:02 Medical Decision Making <DELBERT Beasley - Last Filed: 11/07/22 13:57> Patient is a pleasant 39-year-old female presenting today with chief complaint of left lower quadrant pain. She reports she has a chronic history of pain in this region with unclear diagnosis. She states her primary care has evaluated with colonoscopy and no evidence of diverticulosis was noted. She states that today the pain became much more acute and sharp. She denies being , has an IUD placed. Denies any vaginal discharge. No pain with intercourse. Denies any fevers or chills. No nausea or vomiting. Denies any change in bowel or bladder habits. No blood in her stool. No previous abdominal surgeries. On exam, patient appears nontoxic. She resting comfortably. However, pain is elicited with movement. She is tender over the left lower quadrant as well as more towards the left mid flank but no randolph CVA tenderness with palpation. She has no peritoneal findings on exam. Concern for potential diverticulitis, ovarian cyst,, nephrolithiasis, pa ncreatitis. We will give Toradol and Tylenol to help with discomfort. Will obtain CT imaging and labs. Discussed this plan with the patient who is in agreement. Labs reviewed. No leukocytosis. Stable H&H. CMP without significant abnormality. Urine without evidence of infection. FINDINGS: ABDOMEN: Lung Bases: Normal where visualized. ? Improvement in previously noted pericardial effusion. Liver: Mild hepatic steatosis.? No measurable mass. Gallbladder and biliary tract: No radiodense calculus or dilation.? Pancreas: Normal density, no abnormal calcifications or inflammatory process. Spleen: Normal. Kidneys: Normal size, contour and axis. No radiodense stones or obstructive uropathy. No suspicious masses seen. Adrenal glands: No masses seen. Vasculature: Abdominal aorta non-dilated.? ? Atherosclerotic changes. Soft tissues: Unremarkable. PELVIS:? Bladder:? No gross wall thickening. No calculi.No focal mass. Bowel: No obstruction. ? No bowel wall thickening.? Increased stool in sigmoid, colon otherwise unremarkable. Peritoneal cavity: No ascites, collection or mesenteric inflammatory response. Bones: Degenerative changes in lumbar spine. Reproductive organs: IUD in place.? Lymph nodes: Unremarkable.? IMPRESSION::? Unremarkable CT scan of the abdomen and pelvis. Discussed these findings with the patient. Given the severity of her discomfort I do feel that moving forward with ultrasound would be appropriate at this time. Patient is in agreement with transvaginal ultrasound for further evaluation. At the end of my shift, care transition to Heraclio Hoff with ultrasound pending. 1600-received signout from DELBERT Butcher. Please see initial documentation for presentation, exam, and initial plan of care. Patient signed out to me pending ultrasound imaging. At time of signout patient was in diagnostic imaging Reviewed ultrasound results and patient has no significant emergent findings noted. Of note there was a small anterior fibroid but I am not completely sure this is what is causing patient's discomfort. Labs and CT imaging results were reviewed and show no obvious diagnostic identifiers for emergent abdominal pain. Reassessed patient and further discussed her condition and I feel high likelihood of this being a abdominal wall muscle issue with consideration of possible self reducing hernia. Patient was encouraged to follow-up with primary care provider for reassessment or return for new or worsening symptoms. Also discussed with patient's elevated blood pressure reading here. She states that she has been intermittently taking her blood pressure medication which she was encouraged to take this as prescribed. After discussion of diagnosis and plan of care patient has no further needs, questions, or concerns and states clear understanding to return to the emergency department for any worsening symptoms. This documentation was generated using [email or web address].comation system, please disregard any oddities of phrase or misspellings. <Heraclio Hoff NP - Last Filed: 11/05/22 19:27> Patient is a pleasant 39-year-old female presenting today with chief complaint of left lower quadrant pain. She reports she has a chronic history of pain in this region with unclear diagnosis. She states her primary care has evaluated with colonoscopy and no evidence of diverticulosis was noted. She states that today the pain became much more acute and sharp. She denies being , has an IUD placed. Denies any vaginal discharge. No pain with intercourse. Denies any fevers or chills. No nausea or vomiting. Denies any change in bowel or bladder habits. No blood in her stool. No previous abdominal surgeries. On exam, patient appears nontoxic. She resting comfortably. However, pain is elicited with movement. She is tender over the left lower quadrant as well as more towards the left mid flank but no randolph CVA tenderness with palpation. She has no peritoneal findings on exam. Concern for potential diverticulitis ovarian cyst,, nephrolithiasis, pancreatitis. We will give Toradol and Tylenol to help with discomfort. Will obtain CT imaging and labs. Discussed this plan with the patient who is in agreement. FINDINGS: ABDOMEN: Lung Bases: Normal where visualized. ? Improvement in previously noted pericardial effusion. Liver: Mild hepatic steatosis.? No measurable mass. Gallbladder and biliary tract: No radiodense calculus or dilation.? Pancreas: Normal density, no abnormal calcifications or inflammatory process. Spleen: Normal. Kidneys: Normal size, contour and axis. No radiodense stones or obstructive uropathy. No suspicious masses seen. Adrenal glands: No masses seen. Vasculature: Abdominal aorta non-dilated.? ? Atherosclerotic changes. Soft tissues: Unremarkable. PELVIS:? Bladder:? No gross wall thickening. No calculi.No focal mass. Bowel: No obstruction. ? No bowel wall thickening.? Increased stool in sigmoid, colon otherwise unremarkable. Peritoneal cavity: No ascites, collection or mesenteric inflammatory response. Bones: Degenerative changes in lumbar spine. Reproductive organs: IUD in place.? Lymph nodes: Unremarkable.? IMPRESSION::? Unremarkable CT scan of the abdomen and pelvis. 1600-received signout from DELBERT Butcher. Please see initial documentation for presentation, exam, and initial plan of care. Patient signed out to me pending ultrasound imaging. At time of signout patient was in diagnostic imaging Reviewed ultrasound results and patient has no significant emergent findings noted. Of note there was a small anterior fibroid but I am not completely sure this is what is causing patient's discomfort. Labs and CT imaging results were reviewed and show no obvious diagnostic identifiers for emergent abdominal pain. Reassessed patient and further discussed her condition and I feel high likelihood of this being a abdominal wall muscle issue with consideration of possible self reducing hernia. Patient was encouraged to follow-up with primary care provider for reassessment or return for new or worsening symptoms. Also discussed with patient's elevated blood pressure reading here. She states that she has been intermittently taking her blood pressure medication which she was encouraged to take this as prescribed. After discussion of diagnosis and plan of care patient has no further needs, questions, or concerns and states clear understanding to return to the emergency department for any worsening symptoms. This documentation was generated using [employer] dictation system, please disregard any oddities of phrase or misspellings. Imaging Data Radiologic Study: Imaging: Ultrasound Radiologist's impression: Exam(s) US RENAL PELVIC TRANSVAGINAL EXAM: US RENAL PELVIC TRANSVAGINAL CLINICAL HISTORY: LLQ pain. TECHNIQUE: Patel scale, color and spectral Doppler were used. COMPARISON: CT CT ABDOMEN PELVIS W from 11/05/2022 FINDINGS: Renal size in cm: Right: 11.3 left: 12.3 Echogenicity: Normal Hydronephrosis: No Cyst or mass: No Nephrolithiasis: No Bladder:Normal Prevoid vol: 76 cc Postvoid vol: 25 cc Uterus: 5.9 x 2.7 x 4.2 cm. IUD noted in correct position within endometrial cavity. Small anterior fibroid measuring 7 millimeters. Ovaries: Normal size. No evidence of cyst, mass or torsion. No free fluid. IMPRESSION: Unremarkable renal ultrasound. IUD in place. Small anterior fibroid. Ovaries unremarkable. HPI <DELBERT Beasley - Last Filed: 11/07/22 13:57> General Date/Time Provider Initiated Documentation: 11/05/22 12:13 . Limitations to Documentation: no limitations . Information obtained by: patient and RN notes reviewed . History of Present Illness 47 year old F presents to the emergency department with the chief complaint of Left lower quadrant and groin pain, described as severe and briana lar to prior episodes, Quality is described as stabbing, and is localized to the abdomen. Patient reports no radiation. Patient started experiencing this month(s) and it has been intermittent. Immobilization improves symptom(s), Movement worsens symptoms . Patient notes no other symptoms.. Patient did receive the following treatments prior to arrival, none Related Data Home Medications Medication Instructions Recorded Confirmed levonorgestrel 21 mcg/24 hours (8 1 ea intrauterine ONCE #1 implant 12/27/14 11/05/22 yrs) 52 mg intrauterine device (Mirena) levothyroxine 112 mcg capsule 112 mcg PO DAILY #90 caps 11/06/21 11/05/22 hydrochlorothiazide 25 mg tablet 25 mg PO DAILY #90 tabs 02/05/22 11/05/22 omeprazole 40 mg capsule,delayed 40 mg PO DAILY 03/30/22 11/05/22 release lorazepam 1 mg tablet 1 mg PO ONCE anxiety #1 tab 06/20/22 06/20/22 albuterol sulfate 90 mcg/actuation 2 puff inhalation Q6H PRN 09/21/22 11/05/22 aerosol inhaler (Proventil HFA) shortness of breath or wheezing #8.5 grams Previous Rx's Medication Instructions Recorded levothyroxine 112 mcg capsule 112 mcg PO DAILY #90 caps 11/06/21 hydrochlorothiazide 25 mg tablet 25 mg PO DAILY #90 tabs 02/05/22 lorazepam 1 mg tablet 1 mg PO ONCE anxiety #1 tab 06/20/22 albuterol sulfate 90 mcg/actuation 2 puff inhalation Q6H PRN 09/21/22 aerosol inhaler (Proventil HFA) shortness of breath or wheezing #8.5 grams Allergies Allergy/AdvReac Type Severity Reaction Status Date / Time [facility] AdvReac Intermediate Nightmares Unverified 11/05/22 13:32 General Stated Complaint: GenMedical ADRIEN: 3 Review of Systems <DELBERT Beasley - Last Filed: 11/07/22 13:57> Constitutional Constitutional: Reports as per HPI, Denies chills, Denies fever(s) and Denies headache(s) ENT Ears, Nose, Mouth, and Throat: Denies headache(s) Cardiovascular Cardiovascular: Reports as per HPI, Denies chest pain and Denies dyspnea Respiratory Respiratory: Reports as per HPI, Denies cough and Denies dyspnea Gastrointestinal Gastrointestinal: Reports as per HPI Musculoskeletal Musculoskeletal: Reports as per HPI and Denies back pain Integumentary/Breasts Skin/Breast: Reports as per HPI and Denies rash Neurologic Neurologic: Reports as per HPI and Denies headache(s) PFSH <DELBERT Beasley - Last Filed: 11/07/22 13:57> All Active Problems Abdominal wall pain (Acute) Obesity (Chronic) Neck pain (Acute) Hypertension (Chronic) Dental abscess (Acute) Pelvic pain (Acute) Hyperlipidemia (Acute) Hirsutism (Acute) GERD (gastroesophageal reflux disease) (Chronic) Periarthritis of shoulder (Acute) Smoker (Acute) Medical History Asthma Geographical. [place] no problem. Cervical radiculitis DJD (degenerative joint disease) of cervical spine Hx of abscess of breast Hypothyroid Obesity Presence of 52 mg levonorgestrel-releasing intrauterine device (IUD) Mirena removed and replaced 06/06/17 Stenosis, cervical spine lue neuropathy Suppurative hidradenitis (12/08/14) Surgical History Status post incision and drainage breast abscess 10/23/17 Family History Mother Heart disease Hyperlipidemia Hypertension Age related osteoporosis Father Heart disease Hyperlipidemia Aneurysm Grandfather Personal history of malignant neoplasm colon Maternal Aunt Personal history of malignant neoplasm breast Sister No problems noted. Maternal Grandfather , 44 Cancer Paternal Grandfather , 59 Cancer Maternal Grandmother , 93 Cancer Paternal Grandmother , 69 Cancer Heart disease Hyperlipidemia Hypertension Social History (Updated 06/21/22 @ 16:27 by Morena Benton) Smoking/Tobacco Use Status: Current every day Tobacco Type: cigarettes Second Hand Exposure: Yes Smoking risk assessment performed?: Yes Alcohol Intake: never Drug use: Daily Substance use type: marijuana Caregiver/Support person: No Household members: significant other and children Housing: homeless Communication Needs: None Do you need help understanding health information?: Never Pets and animals: Yes Pets and animals: cat(s) and hamster(s) Sexually active: Yes Do you think of yourself as: straight/heterosexual Current gender identity: female What is your relationship status?: living with partner How often do you talk on the phone with friends or family?: never How often do you get together with friends or relatives?: never Do you belong to any clubs or organized social groups?: no Panel score (0-1 are the most socially isolated patients): 1 What type of physical activity do you participate in: none Sharri/Bahai: No preference Special sharri needs: No Seatbelt use: always Helmet use: No Drive intox or ride w/intox short haul driver: No Do you feel safe at home: Yes Do you feel safe in your relationship?: Yes Female Reproductive History Menstrual Age of Menarche: 10 Duration of menses: <3 days control method: progestin IUCD History History 1 Para 1 Hx # Term Pregnancies Multiple births Hx # Pregnancies Ectopic pregnancies AB induced Hx Number of Living Children 1 AB spontaneous Past Pregnancies Del. Date GA/Weeks # Preg Succ Route Wgt Sex Labor Lgth Anesth esia Location [facility] [place] 01/29/06 vaginal 2721.554 g Female Exam <DELBERT Beasley - Last Filed: 11/07/22 13:57> Const General: cooperative, healthy appearing, comfortable, no acute distress and well developed Nutritional Appearance: well nourished and obese Orientation: alert and awake HENMT Head: normal to inspection Mouth: moist mucous membranes Resp Effort & Inspection: normal respiratory effort, able to speak in complete sentences and no respiratory distress Auscultation: clear to auscultation bilaterally, no rales, no rhonchi and no wheezes Cardio Rate: regular rate Rhythm: regular rhythm Heart Sounds: S1 normal and S2 normal GI Inspection: normal to inspection, large pannus and obesity Palpation: soft, no hepatosplenomegaly, no guarding, no masses, not rigid and tender in the LLQ Auscultation: normal bowel sounds Back/Spine/Pelvis Back: no CVA tenderness Skin General skin exam: no rashes or lesions noted Trauma: no lacerations or abrasions Neuro General: patient alert and patient awake Cognition: normal cognition Speech: speech normal Gait: normal gait Course <DELBERT Beasley - Last Filed: 11/07/22 13:57> Vital Signs Vital signs: Vital Signs Temperature 36.6 C 11/05/22 11:02 Pulse 86 11/05/22 11:02 Respiratory Rate 22 11/05/22 11:02 Blood Pressure 151/96 H 11/05/22 11:02 Pulse Oximetry 98 11/05/22 11:02 Temperature 36.6 C 11/05/22 11:02 Temperature Source Skin 11/05/22 11:02 Pulse 86 11/05/22 11:02 Respiratory Rate 22 11/05/22 11:02 Blood Pressure 151/96 H 11/05/22 11:02 Blood Pressure Position Sitting 11/05/22 11:02 Pulse Oximetry 98 11/05/22 11:02 Oxygen Delivery Method Room Air 11/05/22 11:02 Oxygen Flow Rate 0 11/05/22 11:02 Pain Level 10 11/05/22 11:02 Sign Out <DELBERT Beasley - Last Filed: 11/07/22 13:57> Sign Out Data: Sign Out Comment: Patient with LLQ pain, acute on chronic. CT and labs non diagnostic. Awaiting transvaginal US. BP elevated. Last updated by Bety Hook PA at 11/05/22 15:25
[2022-11-05] MEDS: Lactated Ringers 1,000 ML 1000 ML IV (13:20)
[2022-11-05] MEDS: Ketorolac 15 MG/ML VIAL IVP (13:27)
[2022-11-05] MEDS: Acetaminophen 325 MG TAB 650 MG PO (13:27)
[2022-11-05 13:43] LABS: Bilirubin Negative (Negative); Blood Negative (Negative); Clarity Clear (Clear); Glucose Negative (Negative); Ketones Negative (Negative); Leukocyte Esterase Negative (Negative); Nitrite Negative (Negative); Urobilinogen 0.2 mg/dL (Up to 0.2)
[2022-11-05 13:45] LABS: Abs Immature Grans 0.03 10^3/uL (0.0-0.06); Absolute Basophil Count 0.08 10^3/uL (0.0-0.2); Absolute Eosinophil Count 0.18 10^3/uL (0.0-0.7); Absolute Lymphocyte Count 3.41 10^3/uL (1.2-3.4); Absolute Monocyte Count 0.46 10^3/uL (0.1-0.8); Absolute Neutrophil Count 6.37 10^3/uL (1.2-6.7); Basophils % 0.8; Eosinophils % 1.7; HCT 45.5 % (36.0-46.0); HGB 15.1 g/dL (11.2-15.7); Immature Grans % 0.3; Lymphocytes % 32.4; MCH 29.7 pg (27.0-33.0); MCHC 33.2 % (32.0-36.0); MCV 90 fL (80-95); MPV 9.4 fL (8.0-11.0); Monocytes % 4.4; Neutrophils % 60.4; Platelet Count 425 10^3/uL (130-400); RBC 5.08 10^6/uL (3.93-5.22); RDW 14.5 % (11.7-14.6); RDW-SD 47.8 fL; WBC 10.53 10^3/uL (4.4-10.8)
[2022-11-05 14:14] LABS: ALT 25 U/L (14-59); AST 20 U/L (15-37); Albumin 4.3 g/dL (3.4-5.0); Alkaline Phosphatase 80 U/L (46-116); Anion Gap 9.2 mmol/L (3-11); BUN 14 mg/dL (7-18); Bilirubin, Total 0.6 mg/dL (0.2-1.0); CO2 26.8 mmol/L (21.0-32.0); Calcium 9.6 mg/dL (8.5-10.1); Chloride 102 mmol/L (98-107); Estimated GFR 69.49 (mL/min/1.73m2); Glucose 100 mg/dL (74-106); Lipase 28 U/L (16-77); Magnesium 2.2 mg/dL (1.8-2.4); Sodium 138 mmol/L (136-145); Total Protein 8.5 g/dL (6.4-8.2)
[2022-11-05] MEDS: Omnipaque 350 MG/ML 500 ML BTL-Imaging package IJ (14:25)
[2022-11-05] MEDS: Normal Saline - Diluent 50 ML VIAL IJ (14:25)
--- NOTE | 2022-11-05 15:00 | DI.US_ITS ---
Exam(s) US RENAL PELVIC TRANSVAGINAL EXAM: US RENAL PELVIC TRANSVAGINAL CLINICAL HISTORY: LLQ pain. TECHNIQUE: Patel scale, color and spectral Doppler were used. COMPARISON: CT CT ABDOMEN PELVIS W from 11/05/2022 FINDINGS: Renal size in cm: Right: 11.3 left: 12.3 Echogenicity: Normal Hydronephrosis: No Cyst or mass: No Nephrolithiasis: No Bladder:Normal Prevoid vol: 76 cc Postvoid vol: 25 cc Uterus: 5.9 x 2.7 x 4.2 cm. IUD noted in correct position within endometrial cavity. Small anterior fibroid measuring 7 millimeters. Ovaries: Normal size. No evidence of cyst, mass or torsion. No free fluid. IMPRESSION: Unremarkable renal ultrasound. IUD in place. Small anterior fibroid. Ovaries unremarkable. DATA REPOSITORY:
== END 2022-11-05 17:02 | disposition home or self-care (01) ==
PROVIDERS: Physician Assistant; Emergency Provider Nurse Practitioner Family; PCP Nurse Practitioner Family
DX: R10.32 Left lower quadrant pain (principal); I10 Essential (primary) hypertension; F17.210 Nicotine dependence, cigarettes, uncomplicated
CPT/HCPCS: 76770; 80053; 83690; 96361; 96374; 99285; 74177; 76830; 76856; 81003; 83735; 85025; 99284; J1885

== ENCOUNTER 2023-01-27 14:53 | Emergency (ER) | payer MEDICAID, SELFPAY ==
[2023-01-27 14:55] VITALS: BP 184/109; PULSE 83; RESP 16; TEMP 36.7; O2SAT 99
--- OUTSIDE RECORDS SUMMARY | 2023-01-27 14:56 | XMS_ITS | Continuity of Care Document ---
Author Name Unknown Organization [facility] Ambulatory Clinics Address [address] [place] [address] Care Team Providers Care Vaccines Solutions Specialist Name Role Phone TRES BACA Primary Care Physician [phone] Encounter [facility] NBR [id number] Date(s): 01/23/22 - 01/23/22 [facility] Ambulatory Clinics [address] [place] [address]- Encounter Diagnosis Left lower quadrant abdominal pain(Discharge Diagnosis) - 01/23/22 Discharge Disposition: Home or Self Care Attending Physician: Song Cotter MD Allergies, Adverse Reactions, Alerts Substance Reaction Severity Status Nicorette Nightmares Moderate Active Assessment and Plan Future Appointments Functional Status 01/23/22 Living Environment Home Environment No qualifying data available Other exposure to Infectious Disease Non e Medications Albuterol (Eqv-Proventil HFA) 90 mcg/inh inhalation aerosol 0 Refill(s) Start Date: 01/16/22 Status: Ordered hydroCHLOROthiazide 25 mg oral tablet 25 mg = 1 tab, Oral, Daily, 0 Refill(s) Start Date: 01/16/22 Status: Ordered levothyroxine 25 mcg (0.025 mg) oral capsule 25 mcg = 1 cap, Oral, Daily, # 30 cap, 0 Refill(s) Start Date: 01/16/22 Status: Ordered Mirena 52 mg intrauteral device 52 mg 1 EA, Intrauteral, Once, 0 Refill(s) Start Date: 01/16/22 Status: Ordered omeprazole 40 mg oral delayed release capsule 40 mg = 1 cap, Oral, Daily, 30 minutes before, # 30 cap, 3 Refill(s), Pharmacy: [id number], 175.26, cm, 01/22/22 13:09:00 EST, Height/Length Dosing, 122.47, kg, 01/22/22 13:09:00 EST, Weight Dosing Start Date: 01/22/22 Stop Date: 05/22/22 Status: Ordered Problem List Condition Confirmation Course Effective Dates Status H ealth Status Informant Breast abscess Confirmed Active Asthma Confirmed Active Cervical radiculitis Confirmed Active Dental abscess Confirmed Active Dysphagia Confirmed Active GERD (gastroesophageal reflux disease) Confirmed Active Hirsutism Confirmed Active Hyperlipidemia Confirmed Active Hypertension Confirmed Active Lower abdominal pain Confirmed Active Obesity Confirmed Active DJD (degenerative joint disease) Confirmed Active Pelvic pain Confirmed Active Periarthritis Confirmed Active Smoker Confirmed Active Procedures Procedure Date Related Diagnosis Body Site Status Breast procedure 1 Comple kan Colonoscopy 2 Completed 1I & D Breast abcess 2[facility] 10/17/2021-, follow up in 10 years Vital Signs Most recent to oldest [Reference Range]: 1 Temperature Temporal Artery [36-38 Deg C ] 36.4 Deg C (01/23/22 10:57 AM) Apical Heart Rate [60-100 bpm] 81 bpm (01/23/22 10:57 AM) Blood Pressure [90-140/60-90 mmHg] 150/8 2mmHg *HI* (01/23/22 10:57 AM) Weight 126.2 kg (01/23/22 10:57 AM) Weight Measured (lbs) 278.223 lb (01/23/22 10:57 AM) [place] Body Weight Calculated 66.2 kg (01/23/22 10:57 AM) Height 175.26 cm (01/23/22 10:57 AM) Height/Length Measured (inches) 69 inch (01/23/22 10:57 AM) BSA Measured 2.48 m2 (01/23/22 10:57 AM) Body Mass Index 41.09 kg/m2 (01/23/22 10:57 AM) Social History Social History Type Response Tobacco Current everyday tob acco user Tobacco Use:. Sex Physician Outpatient Note * Song Cotter MD: PERFORM Event Display: Office Clinic Note Physician Authored Date: [id number] JOSE RAMON RADHA M :1975 Age:46 years Sex:Female Visit Date:01/23/2022 Primary Care Physician: TRES BACA Chief Complaint Left lower quadrant abdominal pain History of Present Illness Radha Jose Ramon is a 46-year-old woman??referred by Caridad Swann APRN for evaluation of left lowerquadrant abdominal pain. ??Radha reports that for the past several months she has been experiencing??intermittent brief episodes of pain localized in her left lower quadrant. ??She describes these ep isodes??as??occurring every??few days.?? She??has generally noticed the onset of pain??when she is sitting in??her bathtub. ??The pain lasts for??10 to 20 seconds and is severe. ??She has associated mild associated nausea without emesis. ??She describes??seeing??the left lower quadrant of her abdomen bloat??for several seconds before resolving??during these episodes.?? She has had no significant relief with flatus or bowel movements.?? She has had??no recent diarrhea, constipation, melena, or hematochezia.?? She initially presented??with this pain to her local ED. ??At that time, she was??told she had an??ovarian cyst. ??Since that time, she has had multiple recurrent episodes.?? She presented to her PCP who recommended she be evaluated with??colonoscopy which was reportedly normal. ??She??had a??CT abdomen/pelvis??performed on??05/23/2021??when she presented to her local emergency department with??this pain.?? The CT demonstrated no acute findings to explain her pain. ??The CT images are not available for my review at this time.?Radha can recall no inciting trauma or injury.?She has had no prior abdominal surgeries.?? With the exception of some increased dysphagia, she has had no other changes in her health. ??She is scheduled for??EGD with Dr. Cervantes. Review of Systems A 10 point review of systems was completed. ??Notable findings are documented above. Physical Exam Vitals & Measurements T:??36.4?C ??(Temporal Artery)?? HR:??81??(Apical)?? BP:??150/82?? SpO2:??98%?? HT:??175.26??cm?? WT:??126.2??kg?? BMI:??41.09?? BSA:??2.48?? General: No acute distress, pleasant, conversant CV: RRR Pulmonary: Regular breathing rate and effort Abdomen: Soft, obese,??mildly tender to palpation of the left lower quadrant??where patient indicates??these episodes of pain occur. ??Otherwise nontender. ??There is a small??1 cm??superficial??cystbeneath her umbilicus which is nontender, non-erythematous and has no active drainage.?? No palpable masses or hernias. Assessment/Plan 1.??Left lower quadrant abdominal pain??R10.32 Radha Hernandez is a??46-year-old woman??with??several month history of intermittent left lower quadrant abdominal pain. ??The nature of this pain??is??intense short-lived??and??not easily reproducible.?? She has had extensive work-up including colonoscopy and CT of her abdomen/pelvis which demonstrated no acute pathology to explain her symptoms.?? I suspect that her pain is either musculoskeletal in origin??or related to underlying GI functional issues.?Recommend no surgical intervention asthere is??no??underlying hernia or??intra-abdominal inflammatory process to explain her symptoms.??Recommend that she follow-up with her PCP to discuss her options for potential??treatment with musculoskeletal injury with physical therapy. ??She has established care with gastroenterology who can??elucidate any history to suggest a functional explanation for pain.?? Thank you for the opportunity to participate in the care of Radha Hernandez. ??A copy this consultation will be faxed to Caridad Swann APRN. Problem List/Past Medical History Ongoing Asthma Breast abscess Cervical radiculitis Dental abscess DJD (degenerative joint disease) Dysphagia GERD (gastroesophageal reflux disease) Hirsutism Hyperlipidemia Hypertension Lower abdominal pain Morbid obesity Obesity Pelvic pain Periarthritis Smoker Historical No qualifying data Procedure/Surgical History ???Breast procedure???Colonoscopy Medications Albuterol (Eqv-Proventil HFA) 90 mcg/inh inhalation aerosol hydroCHLOROthiazide 25 mg oral tablet, 25 mg= 1 tab, Oral, Daily levothyroxine 25 mcg (0.025 mg) oral capsule, 25 mcg= 1 cap, Oral, Daily Mirena 52 mg intrauteral device, 52 mg= 1 EA, Intrauteral, Once omeprazole 40 mg oral delayed release capsule, 40 mg= 1 cap, Oral, Daily, 3 refills Allergies Nicorette??(Nightmares) Social History Alcohol Never Electronic Cigarette/Vaping Electronic Cigarette Use: Use, within last 90 days. Substance Use Current, Marijuana Tobacco Current everyday tobacco user Tobacco Use:. Family History Cancer: Grandfather (M), Grandfather (P), Grandmother (M) and Grandmother (P). Cardiovascular disease: Mother and Father. Heart attack: Negative: Grandmother (P). Hyperlipidemia: Mother, Father and Grandmother (P). Hypertension: Mother and Grandmother (P).Negative: Father. Osteoporosis: Mother.Negative: Father. Electronically Signed on 01/23/22 02:48 PM Song Cotter MD Reviewed by: Caridad Swann APRN Patient Care team information Personnel Name: TRES BACA Address: Address: [address] [place] [phone]- [place]
--- OUTSIDE RECORDS SUMMARY | 2023-01-27 14:56 | XMS_ITS | Continuity of Care Document ---
Author Name Unknown Organization [facility] Ambulatory Clinics Address [address] [place] [address] Care Team Providers Care Veneer Stock Layer Name Role Phone PETER BACA Primary Care Physician Encounter [facility] NBR [id number] Date(s): 01/16/22 - 01/16/22 [facility] Ambulatory Clinics [address] [place], [place] [address] Encounter Diagnosis Lower abdominal pain(Discharge Diagnosis) - 01/16/22 Dysphagia(Discharge Diagnosis) - 01/16/22 Discharge Disposition: Home or Self Care Attending Physician: Caridad Swann APRN Allergies, Adverse Reactions, Alerts Substance Reaction Severity Status Nicorette Moderate Active Assessment and Plan Future Appointments Functional Status 01/16/22 Other exposure to Infectious Disease Non e [...] Daily, 30 minutes before, # 30 cap, 0 Refill(s) Start Date: 01/16/22 Stop Date: 02/15/22 Status: Ordered penicillin V potassium 500 mg oral tablet 250 mg = 0.5 tab, Oral, BID, # 30 tab, 0 Refill(s) Start Date: 01/16/22 Status: Ordered Problem List Condition Confirmation Course [...] Temperature Temporal Artery [36-38 Deg C ] 35.6 Deg C *LOW* (01/16/22 10:55 AM) Peripheral Pulse Rate [60-100 bpm] 87 bp m (01/16/22 10:55 AM) Respiratory Rate [12-24 br/min] 20 br/mi n (01/16/22 10:55 AM) Blood Pressure [90-140/60-90 mmHg] 132/8 2mmHg (01/16/22 10:55 AM) Weight 128.5 kg (01/16/22 10:55 AM) Weight Measured (lbs) 283.294 lb (01/16/22 10:55 AM) [place] Body Weight Calculated 66.472 kg (01/16/22 10:55 AM) Height 175.56 cm (01/16/22 10:55 AM) Height/Length Measured (inches) 69.12 in ch (01/16/22 10:55 AM) BSA Measured 2.5 m2 (01/16/22 10:55 AM) Body Mass Index 41.69 kg/m2 (01/16/22 10:55 AM) Social History Social History Type Response Tobacco Current everyday tob acco user Tobacco Use:. Sex Physician Outpatient Note * Caridad Swann APRN: PERFORM Event Display: Office Clinic Note Physician Authored Date: [id number] ROSALINDA ALBRIGHT :1975 Age:46 years Sex:Female Visit Date:01/16/2022 Primary Care Physician: PETER BACA Chief Complaint abdominal pain History of Present Illness Patient is a 46-year-old??female here today at the request of??Peter Baca APRN for abdominal pain.?? This is an initial consult.?? Patient states that she has had??left lower quadrant pain and now bilateral lower quadrant pain??with bending over for approximately 1 to 2 years. ??It has gotten progressively worse.?? Has had no changes in her bowel habits. ??Denies any problems with constipation, diarrhea, melena or hematochezia. ??Her weight and appetite are stable.?? No nausea or vomiting.??Denies pyrosis or dyspepsia.?? She does mention a globus sensation and dysphagia??of solids.?? This has been going on for approximately 2 years but has gotten worse over the past 2 months. ?? Does mention chronic back pain. ?? On 05/23/[address] scan of the chest, abdomen and pelvis??unremarkable other than a pericardial effusion. ??IUD was in place.?? This was done while she was in the emergency room with??complaints of??lower abdominal pain. ?? 05/23/2021 patient had a CBC with a white count 13.65, D-dimer 590, and complete metabolic panel was unremarkable. ?? On 10/17/2021 patient had a colonoscopy at [facility] that was normal.?No biopsies??taken. ?? Denies any family history of gastrointestinal cancers. Review of Systems General: Denies malaise or fatigue. HEENT: Complains of globus sensation and dysphagia of solids without food bolus impactions. Respiratory: Denies shortness of breath, cough, or wheeze. Cardiovascular: Denies chest pain, palpitations, lightheadedness, dizziness, syncope or peripheral edema. ?? Abdomen:??Complains about??lower??quadrant pain with bending over.?? Denies any??nausea, vomiting, constipation, diarrhea, melena??medic easier. ??Weight and appetite are stable. ??Denies pyrosis or??dyspepsia. Skin: Denies rashes or lesions. Neurological: Denies any problems with gait or balance. Physical Exam Vitals & Measurements T:??35.6?C ??(Temporal Artery)?? HR:??87??(Peripheral)?? RR:??20?? BP:??132/82?? SpO2:??95%?? HT:??175.56??cm?? WT:??128.5??kg?? BMI:??41.69?? BSA:??2.5?? General: Well-nourished well-developed obese??female??in no acute distress. HEENT: Head is normocephalic, trachea midline, and no cervical lymphadenopathy. Respiratory: Respirations are even and unlabored. ??Lungs are clear to auscultation. Cardiovascular: Regular rate and rhythm with S1 and S2. Abdomen: Positive bowel sounds x4 quadrants, no masses, no guarding. ??There is??to palpation??leftlower quadrant to palpation.?No hepatosplenomegaly. ??Abdomen is soft. Skin: Warm, dry, and pink. Neurological: Alert and oriented x3, speech is clear and gait is steady. Psychological: Pleasant, calm and cooperative. Assessment/Plan 1.??Lower abdominal pain??R10.[address] scan of the abdomen while patient having??pain was unremarkable.?? She does havetenderness to the left lower quadrant.?? She had no changes in bowel habits, melena, hematochezia or unintentional weight loss.?? Question??hernia or musculoskeletal??concern. ??She does have chronicback pain.?? I will refer patient to general surgery for further evaluation. ??That is unremarkableconsider??musculoskeletal source of??pain given it does occur with movement. Ordered: omeprazole 40 mg oral delayed release capsule, 40 mg = 1 cap, Oral, Daily, 30 minutes before, # 30 cap, 0 Refill(s) Follow-up Appointment Request [email or web address], *Est. 01/30/22 +/- 2 days, Future Order, after EGD, In Approximately, [facility] Gastroenterology Surgical Procedure Booking Request LTTL, 01/16/22 11:20:00 EST, 01/24/22 10:00:00 EST, dysphagia, Lower abdominal pain Dysphagia, Outpatient, EGD, Primary Procedure, 15, MAC, [address], [place], [id number], [id number], [id number], [id number], [id number] ?? 2.??Dysphagia??R13.10 Schedule patient for EGD in the next 2 weeks??given she is having dysphagia to solids without food bolus impactions. ??Start omeprazole 40 mg??30 minutes before evening meal.?? EGD will assess for stricture, Schatzki ring, eosinophil esophagitis??or mucosal injury or inflammation.?? I will see patient 2 weeks following procedure to discuss findings and make further recommendations. Ordered: omeprazole 40 mg oral delayed release capsule, 40 mg = 1 cap, Oral, Daily, 30 minutes before, # 30 cap, 0 Refill(s) Follow-up Appointment Request [email or web address], *Est. 01/30/22 +/- 2 days, Future Order, after EGD, In Approximately, [facility] Gastroenterology Surgical Procedure Booking Request LT, 01/16/22 11:20:00 EST, 01/24/22 10:00:00 EST, dysphagia, Lower abdominal pain Dysphagia, Outpatient, EGD, Primary Procedure, 15, MAC, [address], [place], [id number], [address], [id number], [id number], [id number] ?? Problem List/Past Medical History Ongoing Asthma Breast [...] release capsule, 40 mg= 1 cap, Oral, Daily penicillin V potassium 500 mg oral tablet, 250 mg= 0.5 tab, Oral, BID Allergies Nicorette Social History Alcohol Never Electronic Cigarette/Vaping Electronic Cigarette Use: Unknown/not obtained. Tobacco Current everyday tobacco user Tobacco Use:. Family History Cancer: Grandfather (M), Grandfather (P), Grandmother (M) and Grandmother (P). Cardiovascular disease: Mother and Father. Heart attack: Negative: Grandmother (P). Hyperlipidemia: Mother, Father and Grandmother (P). Hypertension: Mother and Grandmother (P).Negative: Father. Osteoporosis: Mother.Negative: Father. Electronically Signed on 01/16/22 11:44 AM Caridad Swann APRN Patient Care team information Personnel Name: PETER BACA Address: Address: [address] [place] [phone]- [place]
--- OUTSIDE RECORDS SUMMARY | 2023-01-27 14:56 | XMS_ITS | Continuity of Care Document ---
Author Name Unknown Organization [facility] Ambulatory Clinics Address [address] [place] [address] Care Team Providers Care Feed Adviser Name Role Phone PETER BACA Primary Care Physician Encounter [facility] NBR [id number] Date(s): 02/07/22 - 02/07/22 [facility] Ambulatory Clinics [address], [place] [address] Encounter Diagnosis GERD (gastroesophageal reflux disease)(Discharge Diagnosis) - 02/07/22 Dysphagia(Discharge Diagnosis) - 02/07/22 Lower abdominal pain(Discharge Diagnosis) - 02/07/22 Discharge Disposition: Home or Self Care Attending Physician: Caridad Swann APRN Allergies, Adverse Reactions, Alerts Substance Reaction Severity Status Nicorette Nightmares Moderate Active Assessment and Plan Future Appointments Functional Status 02/07/22 Other exposure to Infectious Disease Non e [...] before, # 30 cap, 3 Refill(s), Pharmacy: [id number], 175.26, cm, 01/22/22 13:09:00 EST, Height/Length [...] Procedure Date Related Diagnosis Body Site Status Esophagogastroduodenoscopy Biopsy 1 01/24/22 Completed Esophagogastroduodenoscopy, flexible, transoral; diagnostic, including collection of specimen(s) by brushing or washing, when performed (separate procedure) 01/23/22 Completed Breast procedure 2 Comple kan Colonoscopy 3 Completed 1auto-populated from documented surgical case 2I & D Breast abcess 3[facility] 10/17/2021-, follow up in 10 years Vital Signs Most recent to oldest [Reference Range]: 1 Temperature Temporal Artery [36-38 Deg C ] 36.4 Deg C (02/07/22 9:56 AM) Peripheral Pulse Rate [60-100 bpm] 78 bp m (02/07/22 9:56 AM) Respiratory Rate [12-24 br/min] 20 br/mi n (02/07/22 9:56 AM) Blood Pressure [90-140/60-90 mmHg] 148/9 0mmHg *HI* (02/07/22 9:56 AM) Weight 127 kg (02/07/22 9:56 AM) Weight Measured (lbs) 279.987 lb (02/07/22 9:56 AM) [place] Body Weight Calculated 66.2 kg (02/07/22 9:56 AM) Height 175.26 cm (02/07/22 9:56 AM) Height/Length Measured (inches) 69 inch (02/07/22 9:56 AM) BSA Measured 2.49 m2 (02/07/22 9:56 AM) Body Mass Index 41.35 kg/m2 (02/07/22 9:56 AM) Social History Social History Type Response Tobacco Current everyday tob acco user Tobacco Use:. Sex Physician Outpatient Note * Caridad Swann APRN: PERFORM Event Display: Office Clinic Note Physician Authored Date: [id number] ROSALINDA ALBRIGHT :1975 Age:46 years Sex:Female Visit Date:02/07/2022 Primary Care Physician: PETER BACA Chief Complaint follow up EGD History of Present Illness Patient is a 46-year-old??female here today at the request of??Peter Baca APRN for abdominal pain.?? She is an established patient here today for follow- up of EGD.?? Patient states that she has had??left lower quadrant pain and now bilateral lower quadrant pain??with bending over for approximately 1 to 2 years. ??It has gotten progressively worse.?? Has had no changes in her bowel habits. ??Denies any problems with constipation, diarrhea, melena or hematochezia. ??Her weight and appetite are stable.?? No nausea or vomiting. ??Denies pyrosis or dyspepsia.?? She does mention a globus sensation and dysphagia??of solids.?? This has been going on for approximately 2 years but has gotten worse over the past 2 months. ?? Does mention chronic back pain.?? Notices left lower quadrant pain??worse with movement.?? Is unrelated to her bowel habits. ?? Has noticed since being on omeprazole 40 mg 30 minutes before evening meal??that pyrosis has improved.?? Usually occurs with the first couple bites and then resolves. Denies dysphagia. ?? On 05/23/[address] [...] On 10/17/2021 patient had a colonoscopy at [facility] that was normal.?No biopsies??taken. ?? 01/24/2022 EGD showed??no??celiac disease, Rose's esophagus or eosinophilic esophagitis. ??No H. pylori infection.?? There is reactive gastropathy.?? Endoscopically EGD was normal. ?? Denies any family history of gastrointestinal cancers. Review of Systems Pertinent positives and negatives are discussed in HPI. Physical Exam Vitals & Measurements T:??36.4?C ??(Temporal Artery)?? HR:??78??(Peripheral)?? RR:??20?? BP:??148/90?? SpO2:??94%?? HT:??175.26??cm?? WT:??127??kg?? BMI:??41.35?? BSA:??2.49?? General: Well-nourished well-developed??, overweight female??in no acute distress. HEENT: Head is normocephalic, trachea midline, and no cervical lymphadenopathy. Respiratory: Respirations are even and unlabored. ??Lungs are clear to auscultation. Cardiovascular: Regular rate and rhythm with S1 and S2. Abdomen: Positive bowel sounds x4 quadrants, no masses, no guarding, no tenderness. ??No hepatosplenomegaly. ??Abdomen is soft. Skin: Warm, dry, and pink. Neurological: Alert and oriented x3, speech is clear and gait is steady. Psychological: Pleasant, calm and cooperative. Assessment/Plan 1.??GERD (gastroesophageal reflux disease)??K21.9 Symptoms have improved with omeprazole 40 mg??daily.?? Plans to continue this is. ??Advised to continue to take it 30 minutes before evening meal. ??We discussed reflux triggering foods??beverages toavoid,??to avoid eating carrots before bedtime and eat small??meals.?? I will see patient back in 4weeks to reassess her symptoms are still present but are not??very 2.??Dysphagia??R13.10 Denies at this time.?? Will continue to monitor. 3.??Lower abdominal pain??R10.[address] scan of the abdomen while patient having??pain was unremarkable.?? She does havetenderness to the left lower quadrant.?? She had no changes in bowel habits, melena, hematochezia or unintentional weight loss.?? Question??hernia or musculoskeletal??concern. ??She does??mention this is??worse now with movement. ??She will follow with her PCP in regards to??further management.? Orders: Follow-up Appointment Request DARIEN, *Est. 03/07/22 +/- 4 days, Future Order, f/u GERD, In Approximately, [facility] Gastroenterology Voice recognition software utilized which may result in minor chemical preparer error. Problem List/Past Medical History Ongoing Asthma Breast abscess Cervical radiculitis Dental abscess DJD (degenerative joint disease) Dysphagia GERD (gastroesophageal reflux disease) Hirsutism Hyperlipidemia Hypertension Lower abdominal pain Morbid obesity Obesity Pelvic pain Periarthritis Smoker Historical No qualifying data Procedure/Surgical History ???Esophagogastroduodenoscopy Biopsy (01/24/2022)???Esophagogastroduodenoscopy, flexible, transoral; diagnostic, including collection of specimen(s) by brushing or washing, when performed (separate procedure) (01/24/2022)???Breast procedure???Colonoscopy Medications Albuterol (Eqv-Proventil HFA) 90 mcg/inh [...] Father. Osteoporosis: Mother.Negative: Father. Electronically Signed on 02/07/22 10:19 AM Caridad Swann APRN Patient Care team information Personnel Name: PETER BACA Address: Address: [address] [place] [id number]
--- OUTSIDE RECORDS SUMMARY | 2023-01-27 14:56 | XMS_ITS | Continuity of Care Document ---
Author Name Unknown Organization [facility] Address [address] [place] [id number] Care Team Providers Care Enamel Sprayer Name Role Phone TRES BACA Primary Care Physician Encounter [facility] NBR [id number] Date(s): 01/24/22 - 01/24/[address] [address]- [place] Encounter Diagnosis Pharyngoesophageal dysphagia(Discharge Diagnosis) - 01/24/22 Discharge Disposition: Home f/u External Provider Attending Physician: Boni Cervantes MD Admitting Physician: Boni Cervantes MD Referring Physician: Boni Cervantes MD Allergies, Adverse Reactions, Alerts Substance Reaction Severity Status Nicorette Nightmares Moderate Active Assessment and Plan Future Appointments Diagnostic Tests Pending * Pathology Request 01/24/22 Functional Status 01/24/22 ADLs Independent Recent Travel History No recent travel Other exposure to Infectious Disease Non e 01/22/22 Living Situation Home independently Medications Albuterol (Eqv-Proventil HFA) 90 mcg/inh inhalation [...] before, # 30 cap, 3 Refill(s), [facility]acy: [facility] #[facility], 175.26, cm, 01/22/22 13:09:00 EST, Height/Length [...] Site Status Esophagogastroduodenoscopy Biopsy 1 01/24/22 Completed Breast procedure 2 Comple kan Colonoscopy 3 Completed 1auto-populated from documented surgical case 2I & D Breast abcess 3[facility] 10/17/2021-, follow up in 10 years Results Laboratory List Name Date Urine Qual POCT 01/24/22 Most recent to oldest [Reference Range]: 1 U Preg POCT [Negative] Negative (01/24/22 11:19 AM) Vital Signs Most recent to oldest [Reference Range]: 1 2 Temperature Temporal Artery [36-38 Deg C ] 36.2 Deg C (01/24/22 12:55 PM) Temperature Temporal Artery (DegF) [97.3-100 Deg F] 97.16 Deg F *LOW* (01/24/22 12:55 PM) Peripheral Pulse Rate [60-100 bpm] 76 bp m (01/24/22 1:00 PM) 74 bpm (01/24/22 12:55 PM) Blood Pressure [90-140/60-90 mmHg] 144/9 0mmHg *HI* (01/24/22 1:00 PM) 146/89mmHg *HI* (01/24/22 12:55 PM) Mean Arterial Pressure, Cuff [65-140 mmH g] 108 mmHg (01/24/22 1:00 PM) 108 mmHg (01/24/22 12:55 PM) Mean Arterial Pressure Cuff 103 mmHg (01/24/22 1:00 PM) 102 mmHg (01/24/22 12:55 PM) Weight 122.470 kg (01/22/22 12:55 PM) Weight Dosing 122.470 kg (01/22/22 12:55 PM) Height 175.260 cm (01/22/22 12:55 PM) Height/Length Dosing 175.260 cm (01/22/22 12:55 PM) Social History Social History Type Response Tobacco Current everyday tob acco user Tobacco Use:. Sex Hospital Discharge Instructions Patient Education 01/24/2022 11:54:06 Upper Endoscopy, Adult, Care After Upper Endoscopy, Adult, Care After This sheet gives you information about how to care for yourself after your procedure. Your health care provider may also give you more specific instructions. If you have problems or questions, contact your health care provider. What can I expect after the procedure? After the procedure, it is common to have: ??? A sore throat. ??? Mild stomach pain or discomfort. ??? Bloating. ??? Nausea. Follow these instructions at home: ??? Follow instructions from your health care provider about what to eat or drink after your procedure. ??? Return to your normal activities as told by your health care provider. Ask your health care provider what activities are safe for you. ??? Take elig-cqo-erqlwcv and prescription medicines only as told by your health care provider. ??? If you were given a sedative during the procedure, it can affect you for several hours. Do not drive or operate machinery until your health care provider says that it is safe. ??? Keep all follow-up visits as told by your health care provider. This is important. Contact a health care provider if you have: ??? A sore throat that lasts longer than one day. ??? Trouble swallowing. Get help right away if: ??? You vomit blood or your vomit looks like coffee grounds. ??? You have: ??? A fever. ??? Bloody, black, or tarry stools. ??? A severe sore throat or you cannot swallow. ??? Difficulty breathing. ??? Severe pain in your chest or abdomen. Summary ??? After the procedure, it is common to have a sore throat, mild stomach discomfort, bloating, andnausea. ??? If you were given a sedative during the procedure, it can affect you for several hours. Do not drive or operate machinery until your health care provider says that it is safe. ??? Follow instructions from your health care provider about what to eat or drink after your procedure. ??? Return to your normal activities as told by your health care provider. This information is not intended to replace advice given to you by your health care provider. Make sure you discuss any questions you have with your health care provider. Document Revised: 02/02/2020 Document Reviewed: 07/07/2018 Elsevier Patient Education ?? 2021 [employer] Discharge instructions * WarnerClaudiaa: PERFORM Event Display: Discharge Instructions Authored Date: [id number] ROSALINDA ALBRIGHT :1975 Age:46 years Sex:Female Visit Date:01/24/2022 Primary Care Physician: TRES BACA Hospital Discharge Instructions We would like to thank you for allowing us to assist you with your healthcare needs. The following includes patient education materials and information regarding your injury/illness. After you leave the hospital, you may get your health information including your test results, physician notes and discharge information by accessing your Patient Portal. Your Next Steps Scheduled Future Appointments Saturday 10:00 AM EST ?? Medications What How Much When Why Instructions Next Dose Unchanged albuterol (Albuterol (Eqv-Proventil HFA) 90mcg/ inh inhalation aerosol) Unchanged hydroCHLOROthiazide (hydroCHLOROthiazide 25 mg oral tablet) 1 tab Oral (given by mouth) Every day Unchanged levonorgestrel (Mirena 52 mg intrauteral device) 1 Each Intrauteral Once Unchanged levothyroxine (levothyroxine 25 mcg (0.025 mg) oral capsule) 1 Capsules Oral (given by mouth) Every day Unchanged omeprazole (omeprazole 40 mg oral delayed release capsule) 1 Capsules Oral (given by mouth) Every day Lower abdominal pain Dysphagia Duration: 30 Days 30 minutes before ?? Your Summary Your Care Team Admitting Physician - Boni Cervantes MD Attending Physician - Boni Cervantes MD Primary Care Physician - TRES BACA Referring Physician - Boni Cervantes MD Your Diagnosis Pharyngoesophageal dysphagia Problems Ongoing - Any problem that you are currently receiving treatment for. Asthma Breast abscess Cervical radiculitis Dental abscess DJD (degenerative joint disease) Dysphagia GERD (gastroesophageal reflux disease) Hirsutism Hyperlipidemia Hypertension Lower abdominal pain Morbid obesity Obesity Pelvic pain Periarthritis Smoker Procedures History ???Esophagogastroduodenoscopy Biopsy (01/24/2022) Tests Performed/Pending Urine Qual POCT Discharge Vitals Temperature??(Temporal Artery) 97.2 ??F (36.2 ??C) Heart Rate??(Peripheral) 76 Blood Pressure?? 146/89?? Allergies Nicorette??(Nightmares) Education Materials Upper Endoscopy, Adult, Care After This sheet gives you information about how to care for yourself after your procedure. Your health care provider may also give you more specific instructions. If you have problems or questions, contact your health care provider. What can I expect after the procedure? After the procedure, it is common to have: ? A sore throat. ? Mild stomach pain or discomfort. ? Bloating. ? Nausea. Follow these instructions at home: ? Follow instructions from your health care provider about what to eat or drink after your procedure. ? Return to your normal activities as told by your health care provider. Ask your health care provider what activities are safe for you. ? Take rszo-nax-asjozgv and prescription medicines only as told by your health care provider. ? If you were given a sedative during the procedure, it can affect you for several hours. Do not drive or operate machinery until your health care provider says that it is safe. ? Keep all follow-up visits as told by your health care provider. This is important. Contact a health care provider if you have: ? A sore throat that lasts longer than one day. ? Trouble swallowing. Get help right away if: ? You vomit blood or your vomit looks like coffee grounds. ? You have: ? A fever. ? Bloody, black, or tarry stools. ? A severe sore throat or you cannot swallow. ? Difficulty breathing. ? Severe pain in your chest or abdomen. Summary ? After the procedure, it is common to have a sore throat, mild stomach discomfort, bloating, and nausea. ? If you were given a sedative during the procedure, it can affect you for several hours. Do not drive or operate machinery until your health care provider says that it is safe. ? Follow instructions from your health care provider about what to eat or drink after your procedure. ? Return to your normal activities as told by your health care provider. This information is not intended to replace advice given to you by your health care provider. Make sure you discuss any questions you have with your health care provider. Document Revised: 02/02/2020 Document Reviewed: 07/07/2018 Elsevier Patient Education ?? 2021 [employer] Patient Name:ROSALINDA ALBRIGHT I have received this information and my questions have been answered. Patient/Orthotics Prosthetics Assistant Name: Patient/Orthotics Prosthetics Assistant Signature: Relationship to Patient: Witness Name/Signature: Date: Electronically Signed on: 01/24/2022 13:01 ESTSigned by: * Event Display: Discharge Instructions History and physical note * Event Display: History and Physical Update * Boni Cervantes MD: PERFORM Event Display: History and Physical Authored Date: [id number] ROSALINDA ALBRIGHT :1975 Age:46 years Sex:Female Visit Date:01/24/2022 Primary Care Physician: TRES BACA History of Present Illness 46-year-old female with solid food dysphagia. Physical Exam Obese white female no acute distress Lungs: Clear to auscultation bilaterally Heart: Regular rhythm S1-S2 Abdomen: Soft, left lower quadrant tenderness,??exacerbated with??left Gamaliel maneuver. Assessment/Plan 1.??Pharyngoesophageal dysphagia??R13.14 EGD for possible dilation today. Orders: Normal Saline Flush, 10 mL, IV Flush, Injection, As Directed, PRN personal lines insurance advisor, First Dose: 01/24/22 10:33:00 EST, Routine Sodium Chloride 0.9% 1,000 mL, Total Volume (mL): 1,000, 1,000 mL, Soln-IV, IV, 50 mL/hr, Start Date: 01/24/22 10:33:00 EST, 122.47 kg, Populate Charting Weight From Order, 2.44, m2 Blood Glucose Monitoring POC RE, 01/24/22 10:33:00 EST, Stop date 01/24/22 10:33:00 EST NPO, 01/24/22 10:33:00 EST, Constant Indicator Obtain consent, 01/24/22 10:33:00 EST, Constant Order Peripheral IV Insertion, 01/24/22 10:33:00 EST Saline Lock Convert From IV, 01/24/22 10:33:00 EST, Stop date 01/24/22 10:33:00 EST Vital Signs, 01/24/22 10:33:00 EST, Stop date 01/24/22 10:33:00 EST, Routine Problem List/Past Medical History Ongoing Asthma Breast abscess Cervical radiculitis Dental abscess DJD (degenerative joint disease) Dysphagia GERD (gastroesophageal reflux disease) Hirsutism Hyperlipidemia Hypertension Lower abdominal pain Morbid obesity Obesity Pelvic pain Periarthritis Smoker Historical No qualifying data Procedure/Surgical History ???Breast procedure???Colonoscopy Medications Inpatient Normal Saline Flush, 10 mL, IV Flush, As Directed, PRN Sodium Chloride 0.9% 1,000 mL, 1000 mL, IV Home Albuterol (Eqv-Proventil HFA) 90 mcg/inh inhalation aerosol [...] Father. Osteoporosis: Mother.Negative: Father. Electronically Signed on 01/24/22 11:49 AM Boni Cervantes MD Patient Care team information Personnel Name: RTES BACA Address: Address: [address] [place] [address]
--- OUTSIDE RECORDS SUMMARY | 2023-01-27 14:56 | XMS_ITS | Continuity of Care Document ---
Author Name Unknown Organization [facility] Address [address] [place] [address] Care Team Providers Care Health Tech Name Role Phone TRES BACA Primary Care Physician Encounter [facility] NBR [id number] Date(s): 12/22/21 - 12/22/21 [facility] [address] [place] [address]- [place] Patient Care team information Personnel Name: TRES BACA Address: Address: [address] [place] [id number]
--- NOTE | 2023-01-27 14:57 | ED.GENADUL_ITS ---
Discharge Plan Disposition Patient Disposition: Home Condition: Stable Discharge Details Clinical Impression: Dental infection Primary Care Provider: Peter Laboy ED Provider: Aris Huston Home Meds and New Rx's Prescriptions: New amoxicillin-pot clavulanate 875-125 mg tablet 1 tab PO BID 14 Days Qty: 28 0RF Continued omeprazole 40 mg capsule,delayed release(DR/EC) 40 mg PO DAILY Patient Comments: TAKE ONE CAPSULE BY MOUTH EVERY DAY Mirena 1 EACH intrauterine device 1 ea Intrauterine ONCE Qty: 1 Patient Comments: in place. To be switched out in 2022 hydrochlorothiazide 25 mg tablet 25 mg PO DAILY Qty: 90 3RF albuterol sulfate [Proventil HFA] 90 mcg/actuation HFA aerosol inhaler 2 puff inhalation Q6H PRN (Reason: shortness of breath or wheezing) Qty: 8.5 3RF levothyroxine 112 mcg capsule 112 mcg PO DAILY Qty: 90 4RF Patient Comments: Pt reports no longer taking. chlorhexidine gluconate 0.12 % mouthwash 1 applic PO BID Discontinued penicillin V potassium 500 mg tablet 500 mg PO Q6H Rx Instructions: For 7 days Discharge Instructions Instructions: Amoxicillin/Clavulanate Potassium (By mouth), Toothache (ED) Additional Instructions: You were seen in the emergency department for your dental infection. You need to see a dentist soon as possible. I am changing her antibiotic from penicillin to Augmentin which was sent to [facility] in [place].. Please continue with salt water gargles 3 times per day, homeopathic remedies like clove packets, chlorhexidine mouth rinses that you are prescribed, please use therapeutic dosing of Tylenol (acetamenophen) & Advil (ibuprofen) in an alternating fashion as follows: Take 1000mg of Tylenol every 6 hours without missing doses- that is 4 times per day. [place] in between the Tylenol dosings, take 400-600mg of Advil also on a 6 hour schedule, that is also 4 times per day. The daily maximum dosing of Tylenol is 4000mg, and the daily maximum dosing of Advil is 2400mg. This is safe to do for weeks. Please note that some common cold medications & prescription pain medications may contain acetamenophen and you need to read OTC drug labels and factor that in to maximum daily dosings. Please return for severe increase in facial swelling, redness, severe hoarse voice changes, excessive drooling and inability to open your jaw. Referrals: Peter Laboy CONTROL PANEL BUILDER [Primary Care Provider] - Medical Decision Making This dictation utilizes hdqcl-wp-nfau dictation software and may contain unedited grammatical errors. 47 y/o F presents to ED today with a chief complaint of dental pain, seen at [facility] yesterday. Onset and characteristics include chronic ongoing diffuse dental decay- no symptoms of more insidious pathology- placed on PCN. Patients' medical history: poor dentition. Family and social history: nothing specific. Pertinent exam findings / vital signs include ENT: Nares patent, no circumoral cyanosis, no facial swelling Diffuse dental decay and caries, uvula midline, no tonsillar swelling, no cervical lymphadenopathy, no trismus, no hoarse vocal changes, no excessive drooling, no facial erythema, no fluctuant gingival swelling. Differential / pathologies of concern include dental infection, unlikely abscess. Diagnostic studies of: -none. Interventions of: -outpatient Rx, changed to Augmentin due to extent of oral disease. ED Course/Assessment/Plan: 47-year-old patient seen with ongoing dental pain, here for pain control only advised alternating NSAID therapy and inability of the ED to provide narcotic pain relief for this which she states she did not want in the first place. I advised her that her antibiotics would likely be much more effective on her pain by day 3 but I did switch her penicillin for Augmentin as it has better coverage for oral kaden. Counseled on return criteria for trismus or severe vocal changes or excessive drooling or significant increase in facial swelling or redness and fever. Findings not consistent with peritonsillar abscess, epiglottitis. Disposition of Dental Infection. Patient verbalized understanding of the plan and return to ED criteria and engaged in shared decision making. Medical Records Medical records reviewed: Yes I reviewed the patient's medical records. HPI General Date/Time Provider Initiated Documentation: 01/27/23 14:57 . HPI Narrative: 47 year-old female presents to ED today by POV/ambulating with a chief complaint of dental pain, seen at [facility] yesterday- on ABX, given mouth wash, and lidocaine. Quality described as throbbing, no radiation to hoarse vocal changes, trismus, excessive drooling, facial swelling, fever. Severity is described as intense. Palliating factors include nothing specific is helping, but hasn't been alternating APAP and NSAID. Provoking factors include nothing specific. Events leading up to the incident/Associated Symptoms: Patient has not arranged dental follow-up yet but is in process. Patient not anticoagulated. Related Data Home Medications Medication Instructions Recorded Confirmed levonorgestrel 21 mcg/24 hours (8 1 ea intrauterine ONCE #1 implant 12/27/14 01/27/23 yrs) 52 mg intrauterine device (Mirena) hydrochlorothiazide 25 mg tablet 25 mg PO DAILY #90 tabs 02/05/22 01/27/23 omeprazole 40 mg capsule,delayed 40 mg PO DAILY 03/30/22 01/27/23 release albuterol sulfate 90 mcg/actuation 2 puff inhalation Q6H PRN 09/21/22 01/27/23 aerosol inhaler (Proventil HFA) shortness of breath or wheezing #8.5 grams levothyroxine 112 mcg capsule 112 mcg PO DAILY #90 caps 12/06/22 01/27/23 amoxicillin 875 mg-potassium 1 tab PO BID dental infection 14 01/27/23 clavulanate 125 mg tablet days #28 tabs chlorhexidine gluconate 0.12 % 1 applic PO BID 01/27/23 01/27/23 mouthwash Previous Rx's Medication Instructions Recorded hydrochlorothiazide 25 mg tablet 25 mg PO DAILY #90 tabs 02/05/22 albuterol sulfate 90 mcg/actuation 2 puff inhalation Q6H PRN 09/21/22 aerosol inhaler (Proventil HFA) shortness of breath or wheezing #8.5 grams levothyroxine 112 mcg capsule 112 mcg PO DAILY #90 caps 12/06/22 amoxicillin 875 mg-potassium 1 tab PO BID dental infection 14 01/27/23 clavulanate 125 mg tablet days #28 tabs Allergies Allergy/AdvReac Type Severity Reaction Status Date / Time nicotine [From Joseph ] AdvReac Intermediate Nightmares Unverified 01/27/23 15:01 General ADRIEN: 3 Review of Systems All systems reviewed & are unremarkable except as noted in HPI and below PFSH All Active Problems Dental infection (Acute) Hypothyroidism (Chronic) Obesity (Chronic) Neck pain (Acute) Hypertension (Chronic) Dental abscess (Acute) Pelvic pain (Acute) Hyperlipidemia (Acute) Hirsutism (Acute) GERD (gastroesophageal reflux disease) (Chronic) Periarthritis of shoulder (Acute) Smoker (Acute) Medical History Asthma Geographical. [place] no problem. Cervical radiculitis DJD (degenerative joint disease) of cervical spine Hx of abscess of breast Hypothyroid Obesity Presence of 52 mg levonorgestrel-releasing intrauterine device (IUD) Mirena removed and replaced 06/06/17 Stenosis, cervical spine lue neuropathy Suppurative hidradenitis (12/08/14) Surgical History Status post incision and drainage breast abscess 10/23/17 Family History Mother Heart disease Hyperlipidemia Hypertension Age related osteoporosis Father Heart disease Hyperlipidemia Aneurysm Grandfather Personal history of malignant neoplasm colon Maternal Aunt Personal history of malignant neoplasm breast Sister No problems noted. Maternal Grandfather , 44 Cancer Paternal Grandfather , 59 Cancer Maternal Grandmother , 93 Cancer Paternal Grandmother , 69 Cancer Heart disease Hyperlipidemia Hypertension Social History (Updated 06/21/22 @ 16:27 by Morena Benton) Smoking/Tobacco Use Status: Current every day Tobacco Type: cigarettes Second Hand Exposure: Yes Smoking risk assessment performed?: Yes Alcohol Intake: never Drug use: Daily Substance use type: marijuana Caregiver/Support person: No Household members: significant other and children Housing: homeless Communication Needs: None Do you need help understanding health information?: Never Pets and animals: Yes Pets and animals: cat(s) and hamster(s) Sexually active: Yes Do you think of yourself as: straight/heterosexual Current gender identity: female What is your relationship status?: living with partner How often do you talk on the phone with friends or family?: never How often do you get together with friends or relatives?: never Do you belong to any clubs or organized social groups?: no Panel score (0-1 are the most socially isolated patients): 1 What type of physical activity do you participate in: none Sharri/Muslim: No preference Special sharri needs: No Seatbelt use: always Helmet use: No Drive intox or ride w/intox city bus driver: No Do you feel safe at home: Yes Do you feel safe in your relationship?: Yes Female Reproductive History Menstrual Age of Menarche: 10 Duration of menses: <3 days control method: progestin IUCD History History 1 Para 1 Hx # Term Pregnancies Multiple births Hx # Pregnancies Ectopic pregnancies AB induced Hx Number of Living Children 1 AB spontaneous Past Pregnancies Del. Date GA/Weeks # Preg Succ Route Wgt Sex Labor Lgth Anesth esia Location Prov [facility] 01/29/06 vaginal 2721.554 g Female Exam Narrative Exam Narrative: GENERAL APPEARANCE: Well-nourished, non-toxic, awake and alert, atraumatic, no acute distress. SKIN: Warm, pink, dry, intact, without rashes/lesions/ulcerations. HEAD: Normocephalic, atraumatic, normal hair distribution for gender/age. EYES: Pupils PERRLA, EOMs intact without nystagmus, normal conjunctiva, no exudates on lids/lashes. ENT: Nares patent, no circumoral cyanosis, no facial swelling Diffuse dental decay and caries, uvula midline, no tonsillar swelling, no cervical lymphadenopathy, no trismus, no hoarse vocal changes, no excessive drooling, no facial erythema NECK: Supple, trachea midline, painless cervical ROM. LUNGS/CHEST: Non-labored respirations, normal A/P diameter, symmetrical expansion, no chest wall deformity HEART (CV/PV): No peripheral edema, no JVD. ABDOMEN: Soft, non-distended, no guarding. MSK: Normal ROM, no swelling/deformity to bilateral UEs or LEs, moving all extremities without weakness, no cyanosis, spine midline without tenderness, normal curvature. NEURO: Mental Status AAOx4 - alert to person, place, time, events No facial droop, no forehead involvement. Motor: No focal weakness - strength 5/5 in bilateral UEs and LEs, proximal and distal, symmetric. Sensory: sensation intact to light touch globally. Gait normal: patient ambulated without ataxia into ED room. PSYCH: euthymic, cooperative, pleasant, appropriate speech
[2023-01-27 15:13] VITALS: BP 184/109; PULSE 83; RESP 16; TEMP 36.7; O2SAT 99
== END 2023-01-27 15:19 | disposition home or self-care (01) ==
PROVIDERS: Emergency Provider Physician Assistant; PCP Nurse Practitioner Family
DX: K04.7 Periapical abscess without sinus (principal)
CPT/HCPCS: 99283; 99284

== ENCOUNTER 2023-12-17 08:33 | Emergency (ER) | payer MEDICAID, SELFPAY ==
[2023-12-17 08:36] VITALS: BP 199/98; PULSE 96; RESP 19; TEMP 36.9; O2SAT 94
--- NOTE | 2023-12-17 08:45 | DI.RAD_ITS ---
Exam(s) XR RIBS LT W PA LAT CHEST Exam: XR RIBS LT W PA LAT CHEST CLINICAL HISTORY: Coughing, sudden L. lower rib pain TECHNIQUE: 2D digital imaging was performed. PA and lateral chest. Four views left ribs. COMPARISON: CT CT CHEST PE ABD PELVIS W from 05/23/2021 FINDINGS: MEDIASTINUM: Normal. HEART: Normal. PULMONARY VASCULATURE: Normal. LUNGS: Clear. PLEURAL SPACE: No pleural effusion or pneumothorax. SPINE:NORMAL. LEFT RIBS: Normal. OTHER FINDINGS:Arm spurring at the AC joint. IMPRESSION: 1. No acute pulmonary findings. 2. Unremarkable left ribs. DATA REPOSITORY: RADIATION DOSE DELIVERED:
--- NOTE | 2023-12-17 08:55 | W.ED.GENAD ---
Discharge Plan Disposition Patient Disposition: Home Condition: Stable Discharge Details Clinical Impression: Rib pain on left side, GERD (gastroesophageal reflux disease), Hyperlipidemia, Hypertension, Hypothyroidism, Cough, Mild intermittent reactive airway disease Primary Care Provider: Unknown,Unknown ED Provider: Ally Centeno Home Meds and New Rx's Prescriptions: New lidocaine 5 % adhesive patch,medicated 1 patch topical DAILY Qty: 15 0RF Rx Instructions: leave on most painful area for up to 12 hrs No Action omeprazole 40 mg capsule,delayed release(DR/EC) 40 mg PO DAILY Patient Comments: TAKE ONE CAPSULE BY MOUTH EVERY DAY Mirena 1 EACH intrauterine device 1 ea Intrauterine ONCE Qty: 1 Patient Comments: in place. To be switched out in 2022 hydrochlorothiazide 25 mg tablet 25 mg PO DAILY Qty: 90 3RF levothyroxine 112 mcg capsule 112 mcg PO DAILY Qty: 90 4RF Patient Comments: Pt reports no longer taking. albuterol sulfate [Proventil HFA] 90 mcg/actuation HFA aerosol inhaler 2 puff inhalation Q6H PRN (Reason: shortness of breath or wheezing) Qty: 8.5 3RF chlorhexidine gluconate 0.12 % mouthwash 1 applic PO BID Discharge Instructions Instructions: Pleuritic Chest Pain ED Additional Instructions: You were seen in the emergency department today for evaluation of rib pain while coughing. In our department you have a full physical examination performed, had a reassuring chest x-ray with no sign of pneumonia, rib fracture, or other abnormality, and had a negative COVID and flu test. You received medications for your pain and I will provide you with a prescription for lidocaine patches. Please continue to maintain good hydration and nutrition and follow-up with your primary care provider for reassessment. Thank you for allowing us to be part of your care. HPI General Mode of arrival: ambulatory. Date/Time Provider Initiated Documentation: 12/17/23 08:38. Limitations to Documentation: no limitations. Information obtained by: patient and old records reviewed. HPI Narrative: HPI: This is a 48-year-old female patient with a past medical history significant for hypertension, hyperlipidemia, GERD, and hypothyroidism who is presenting for evaluation of left rib pain. The patient reports that she has been getting sick with a viral-like illness over the last few days, has had a nonproductive cough and last night while coughing felt a sudden sharp pain in her left side chest. She states it is located at the lateral border of her ribs, is worse with persistent coughing. She states that she does not have chest pain at rest, has not noted any significant worsening of her breathing, though she does have a history of reactive airway disease and has been out of her inhaler for a few months. The patient reports no fevers or chills, has been eating and drinking typically without nausea or vomiting, denies abdominal discomfort, changes in bowel or bladder habits. She is not had any hemoptysis, lower extremity swelling or pain, and has not tried any medications for management of the symptoms. Exam: Gen: Awake and alert, in no apparent distress HEENT: Non-icteric sclera Neck: Supple Lungs: No apparent respiratory distress, normal respiratory effort. The patient has diffuse expiratory wheezing throughout lung mcnamara, no tachypnea CV: Appears well perfused, heart with regular rate and rhythm, no murmurs auscultated Abdomen: Non-distended, soft MSK: Moves 4 extremities without apparent limitation in ROM, no unilateral calf swelling or tenderness, no peripheral edema Skin: Visualized skin without rashes, cyanosis. Neuro: Normal Gait, no obvious focal deficits or facial asymmetry. Speaks in full, clear sentences. Psych: Appropriate for situation. MDM: This is a 48-year-old female patient presenting for evaluation of left-sided chest pain during coughing. My differential includes was not limited to costochondritis, pleurisy, certainly considered rib fracture, pneumonia, pneumothorax. The patient has diffuse wheezing concerning for reactive airway disease, though she is not hypoxic, take significant distress. I considered pulmonary embolism as of the patient's recent viral symptoms, her lack of DVT signs, and her lack of history of thromboembolic disease reassures me against this condition. She has no chest pain at rest to suggest ACS, pericarditis, or myocarditis. We will obtain a chest x-ray with left ribs, we will obtain a COVID and flu swab to evaluate for viral upper respiratory infection, and will provide the patient with multimodal pain control to include Tylenol, ibuprofen, and a lidocaine patch. Will also provide the patient with 2 puffs of an albuterol inhaler and intent to fill her albuterol prescription as she is currently awaiting a new appointment with PCP. ED Course: COVID and flu negative, chest x-ray without evidence of pneumothorax, pneumonia, rib fracture, etc. On reassessment the patient's wheezing has improved with 2 puffs of her albuterol MDI, and she was provided with the remainder of that inhaler to bridge her until her primary care visit. She reports improvement in her pain after lido patches, Tylenol, and ibuprofen. I provided her with a prescription for lidocaine patches, and at this time, the patient has had a full medical evaluation and is safe for discharge to home. They are hemodynamically stable, ambulatory, and tolerating PO. They are understanding of the follow-up plan and return precautions. They left our facility without incident. Ally Centeno MD Related Data Home Medications ?Medication ?Instructions ?Recorded ?Confirmed levonorgestrel 21 mcg/24 hr (up to 1 ea intrauterine ONCE #1 implant 12/27/14 12/17/23 8 years) 52 mg intrauterine device (Mirena) hydrochlorothiazide 25 mg tablet 25 mg PO DAILY #90 tabs 02/05/22 12/17/23 omeprazole 40 mg capsule,delayed 40 mg PO DAILY 03/30/22 12/17/23 release levothyroxine 112 mcg capsule 112 mcg PO DAILY #90 caps 12/06/22 12/17/23 chlorhexidine gluconate 0.12 % 1 applic PO BID 01/27/23 12/17/23 mouthwash albuterol sulfate 90 mcg/actuation 2 puff inhalation Q6H PRN 01/28/23 12/17/23 aerosol inhaler (Proventil HFA) shortness of breath or wheezing #8.5 grams lidocaine 5 % topical patch 1 patch topical DAILY #15 ea 12/17/23 Previous Rx's ?Medication ?Instructions ?Recorded hydrochlorothiazide 25 mg tablet 25 mg PO DAILY #90 tabs 02/05/22 levothyroxine 112 mcg capsule 112 mcg PO DAILY #90 caps 12/06/22 albuterol sulfate 90 mcg/actuation 2 puff inhalation Q6H PRN 01/28/23 aerosol inhaler (Proventil HFA) shortness of breath or wheezing #8.5 grams lidocaine 5 % topical patch 1 patch topical DAILY #15 ea 12/17/23 Allergies Allergy/AdvReac Type Severity Reaction Status Date / Time [facility] AdvReac Intermediate Nightmares Unverified 12/17/23 08:48 General Stated Complaint: Chest/Rib ADRIEN: 3 Course Vital Signs Vital signs: Vital Signs Temperature 36.9 C 12/17/23 08:36 Pulse 96 H 12/17/23 08:36 Respiratory Rate 19 12/17/23 08:36 Blood Pressure 199/98 H 12/17/23 08:36 Pulse Oximetry 94 12/17/23 08:36 Temperature 36.9 C 12/17/23 08:36 Temperature Source Tympanic 12/17/23 08:36 Pulse 96 H 12/17/23 08:36 Respiratory Rate 19 12/17/23 08:36 Respiratory Effort Short of Breath, Incrsd Work of Breathing 12/17/23 08:42 Respiratory Depth Shallow 12/17/23 08:42 Respiratory Pattern Normal 12/17/23 08:42 Blood Pressure 199/98 H 12/17/23 08:36 Blood Pressure Position Sitting 12/17/23 08:36 Pulse Oximetry 94 12/17/23 08:36 Oxygen Delivery Method Room Air 12/17/23 08:36 Oxygen Flow Rate 0 12/17/23 08:36 Pain Level 8 12/17/23 08:42 Medical Decision Making Quality:SDOH Health Related Social Needs: No Data to Display PFSH All Active Problems Mild intermittent reactive airway disease (Acute) Cough (Acute) Rib pain on left side (Acute) Hypothyroidism (Chronic) Obesity (Chronic) Neck pain (Acute) Hypertension (Chronic) Dental abscess (Acute) Pelvic pain (Acute) Hyperlipidemia (Acute) Hirsutism (Acute) GERD (gastroesophageal reflux disease) (Chronic) Periarthritis of shoulder (Acute) Smoker (Acute) Medical History Asthma Geographical. [place] no problem. Cervical radiculitis DJD (degenerative joint disease) of cervical spine Hx of abscess of breast Hypothyroid Obesity Presence of 52 mg levonorgestrel-releasing intrauterine device (IUD) Mirena removed and replaced 06/06/17 Stenosis, cervical spine lue neuropathy Suppurative hidradenitis (12/08/14) Surgical History Status post incision and drainage breast abscess 10/23/17 Family History Mother Heart disease Hyperlipidemia Hypertension Age related osteoporosis Father Heart disease Hyperlipidemia Aneurysm Grandfather Personal history of malignant neoplasm colon Maternal Aunt Personal history of malignant neoplasm breast Sister No problems noted. Maternal Grandfather , 44 Cancer Paternal Grandfather , 59 Cancer Maternal Grandmother , 93 Cancer Paternal Grandmother , 69 Cancer Heart disease Hyperlipidemia Hypertension Social History (Updated 06/21/22 @ 16:27 by Morena Benton) Smoking/Tobacco Use Status: Current every day Tobacco Type: cigarettes Tobacco: How many years used: 28 Second Hand Exposure: Yes Smoking risk assessment performed?: Yes Alcohol Intake: never Drug use: Daily Substance use type: marijuana Caregiver/Support person: No Household members: significant other and children Housing: apartment Communication Needs: None Do you need help understanding health information?: Never Pets and animals: Yes Pets and animals: cat(s) and hamster(s) Sexually active: Yes Do you think of yourself as: straight/heterosexual Current gender identity: female What is your relationship status?: living with partner How often do you talk on the phone with friends or family?: never How often do you get together with friends or relatives?: never Do you belong to any clubs or organized social groups?: no Panel score (0-1 are the most socially isolated patients): 1 What type of physical activity do you participate in: none Sharri/Anabaptist: No preference Special sharri needs: No Seatbelt use: always Helmet use: No Drive intox or ride w/intox haulpak driver: No Do you feel safe at home: Yes Do you feel safe in your relationship?: Yes Female Reproductive History Menstrual Age of Menarche: 10 Duration of menses: <3 days control method: progestin IUCD History History 1 Para 1 Hx # Term Pregnancies Multiple births Hx # Pregnancies Ectopic pregnancies AB induced Hx Number of Living Children 1 AB spontaneous Past Pregnancies Del. Date GA/Weeks # Preg Succ Route Wgt Sex Labor Lgth Anesthesia Location Prov [facility] [address] 01/29/06 vaginal 2721.554 g Female
[2023-12-17] MEDS: Acetaminophen 500 MG TAB 1000 MG PO (09:05)
[2023-12-17] MEDS: Albuterol HFA 8 GM 60 PUFF INH IH (09:06)
[2023-12-17] MEDS: Ibuprofen 600 MG TAB PO (09:06)
[2023-12-17] MEDS: Lidocaine 5% Patch 1 PATCH TP (09:07)
[2023-12-17] MEDS: Inhaler, Assist Device 1 EACH MC (09:46)
--- OUTSIDE RECORDS SUMMARY | 2023-12-17 10:08 | XMS_ITS | Encounter Summary ---
Author Organization [facility] Address [address] [place] [address] Care Team Providers Care Amusement Park Ride Mechanic Name Role Phone Roxanne Taveras MD Primary Care Provider [phone] Encounter Details Date Type Department Care Team (Late st Contact Info) Description 11/06/2021 Lab Requisition [facility] Pathology & Laboratory Medicine - [address] [address] Nelly Menedz MD [address] [place] [address] [place] [address] Encounter for other general examination Social History Tobacco Use Types Packs/Day Years Used Date Smoking Tobacco: Never Assessed Sex and Gender Information Value Date Recorded Sex Assigned at Not on file Gender Identity Not on file Sexual Orientation Not on file documented as of this encounter Plan of Treatment Not on file documented as of this encounter Procedures Procedure Name Priority Date/Time Associated Diagnosis Comments PAP TEST Today 11/06/2021 10:50 EDT Encounter for other general examination CHLAMYDIA/N. GONORRHOEAE AMPLIFIED NUCLEIC ACID, THINPREP Today 11/06/2021 10:50 EDT HPV DNA DETECTION WITH GENOTYPING, PCR Today 11/06/2021 10:50 EDT Encounter for other general examination documented in this encounter Results * HUMAN PAPILLOMAVIRUS (HPV) DETECTION-HIGH RISK TYPES (11/06/2021 10:50 EDT) HPV other High Risk types, PCR Negative Negative 11/13/2021 15:19 EDT [facility] Comment:No E6 or E7 mRNA is detected from HPV types 16,18,31,33,35,39,45,51,52,56,58,59,66, and 68 by golf sales associate mediated amplification. Papanicolaou smear specimen (specimen) CERVIX UTERI STRUCTURE / Unknown 11/06/2021 10:50 EDT 11/10/2021 11:00 EDT Nelly Mendez MD MICROBIOLOGY - GENER AL ORDERABLES [facility] [address] [place] [address] * PAP TEST (11/06/2021 10:50 EDT) Specimens A. Cervix and/or Endocervix , ThinPrep Imaging System with Manual Evaluation 11/13/2021 15:19 [facility] Specimen Adequacy Satisfactory for Evaluation - transformation zone component present 11/13/2021 15:19 [facility] General Categorization Negative for intraepithelial lesion or malignancy 11/13/2021 15:19 [facility] Attestation . 11/13/2021 15:19 [facility] at 1519 Clinical History See below 11/14/19 15:19 [facility] HPV The result for the Human Papillomavirus (HPV) Detection-High Risk Types is Negative. No E6 or E7 mRNA is detected from HPV types 16,18,31,33,35,39 ,45,51,52,56,58,5 9,66, and 68 by golf sales associate mediated amplification.Regine ting was performed on specimen [id number] and was resulted on 11/13/2021 1517 EDT by LISET, LAB INSTRUMENT RESULTS IN 11/13/2021 15:19 [facility] Performing Lab [facility] 11/13/2021 15:19 [facility] Scanned Images 11/13/2021 15:19 [facility] Papanicolaou smear specimen (specimen) CERVIX UTERI STRUCTURE / Unknown 11/06/2021 10:50 EDT 11/07/2021 12:50 EDT Nelly Mendez MD PATHOLOGY ORDERABLES Performing Organization Address City/[facility]/ZIP Co de Phone Number [facility] [address] [place] [address] * CHLAMYDIA/N. GONORRHOEAE AMPLIFIED RNA, THINPREP (11/06/2021 10:50 EDT) Neisseria gonorrhoeae Result Negative Negative 11/07/2021 14:45 EDT [facility] Chlamydia trachomatis Result Negative Negative 11/07/2021 14:45 EDT [facility] Papanicolaou smear specimen (specimen) CERVIX UTERI STRUCTURE / Unknown 11/06/2021 10:50 EDT 11/07/2021 8:39 EDT Nelly Mendez MD MICROBIOLOGY - GENER AL ORDERABLES Performing Organization Address City/[facility]/ZIP Co de Phone Number [facility] [address] [place] [address] documented in this encounter Visit Diagnoses Diagnosis Encounter for other general examination documented in this encounter Care Teams Amusement Park Ride Mechanic Relationship Specialty Start Date End Date Roxanne Taveras MD [address] [place] [address] PCP - General 10/26/11 documented as of this encounter
--- OUTSIDE RECORDS SUMMARY | 2023-12-17 10:08 | XMS_ITS | Encounter Summary ---
Author Organization [facility] Address [address] [place] [address] Care Team Providers Care Hr Clerk Name Role Phone Unknown, Provider Primary Care Provider Encounter Details Date Type Department Care Team (Late st Contact Info) Description 10/23/2011 Results Only [facility] ([facility]) [address], [place] [phone] Roxanne Taveras MD [address] [place] [id number] Social History Tobacco Use Types Packs/Day Years Used Date Smoking Tobacco: Never Assessed Sex and Gender Information Value Date Recorded Sex Assigned at Not on file Gender Identity Not on file Sexual Orientation Not on file documented as of this encounter Plan of Treatment Not on file documented as of this encounter Procedures Procedure Name Priority Date/Time Associated Diagnosis Comments SURGICAL PATHOLOGY Routine 10/23/2011 0:00 EDT documented in this encounter Results * SURGICAL PATHOLOGY (10/23/2011 0:00 EDT) Pathology Report: SURGICAL PATHOLOGY REPORT Reports generated via electronic interface contain original data; however they are lacking the format of the original report. Caution should be taken when reading/interpreti ng unformatted reports. Name: ? RADHA MATHIAS ? Accession #: ? [id number] ? : ? 1975 (Age: 36) ??F ? Collect Date: ? 10/23/2011 ? Location: ? [facility] ? Receive Date: ? 10/24/2011 ? Provider: ROXANNE TAVERAS MD Copy to: ? Final Pathologic Diagnosis: ? Skin of neck, left side, shave excision: 1. ?Melanocytic nevus, intradermal type. ? - Nevus extends to peripheral edges and base of shave excision specimen. ?? Microscopic Description: ? Sections are of a papule with mild epidermal hyperplasia and hyperkeratosis. ??There is a proliferation of melanocytes within the dermis. ??The proliferation consists of nests, cords, and strands that diminish in size with descent into the dermis. ??The melanocytes are slightly enlarged but generally have round-oval nuclei and a moderate amount of cytoplasm. ??The melanocytes show die maker electronic maturation. ??(Dr. Baker)/frieda Document reviewed and electronically signed by: MADDY BAKER MD Report ??Date: 10/25/2011 13:53 By the signature above, the attending physician certifies that he/she has personally conducted a gross and/or microscopic examination of the described specimens and rendered or confirmed the above diagnosis. Specimen(s) Received: ? 5.0-6.0 mm base, about 1.0 cm fleshy, brown lesion L side of neck, shave excision done Clinical History: ? Pedunculated nevus L side of neck, gets caught on clothing/jewelry Gross Description: ? Received in formalin labelled Radha Mathias and L side of neck is a 0.9 x 0.7 x 0.6 cm ovoid, plummer-brown, granular, friable, focally hairbearing papule. ??The margin is inked. ??The specimen is trisected and entirely submitted in a single cassette. ??(Noemi Sorenson/frieda End of Report [facility] 10/23/2011 10/24/2011 9:2 3 EDT Roxanne Taveras MD PATHOLOGY ORDERABLES [facility] [address] [place] [address] documented in this encounter Visit Diagnoses Not on filedocumented in this encounter Care Teams Hr Clerk Relationship Specialty Start Date End Date Unknown, Provider, PCP - General 10/24/11 10/25/11 documented as of this encounter
--- OUTSIDE RECORDS SUMMARY | 2023-12-17 10:08 | XMS_ITS | Referral Summary ---
Author Organization [facility] Address [address] [place] [address] Care Team Providers Care Equal Opportunity Assistant Name Role Phone Roxanne Taveras MD Primary Care Provider [phone] Social History Tobacco Use Types Packs/Day Years Used Date Smoking Tobacco: Never Assessed Sex and Gender Information Value Date Recorded Sex Assigned at Not on file Gender Identity Not on file Sexual Orientation Not on file Plan of Treatment Not on file Care Teams Equal Opportunity Assistant Relationship Specialty Start Date End Date Roxanne Taveras MD [address] [place], [place] [phone] PCP - General 10/26/11
--- OUTSIDE RECORDS SUMMARY | 2023-12-17 10:08 | XMS_ITS | Encounter Summary ---
Author Organization [facility] Address [address] [place] [address] Care Team Providers Care Occupational Therapy Aides Teacher Name Role Phone Unavailable Primary Care Provider Unavailabl e Encounter Details Date Type Department Care Team (Late st Contact Info) Description 09/25/2011 Results Only [facility] - [facility] ([facility]) [address] [place], [place] [address] Gayathri Pineda, [facility] [address] [place] [address] Social History Tobacco Use Types Packs/Day Years Used Date Smoking Tobacco: Never Assessed Sex and Gender Information Value Date Recorded Sex Assigned at Not on file Gender Identity Not on file Sexual Orientation Not on file documented as of this encounter Plan of Treatment Not on file documented as of this encounter Procedures Procedure Name Priority Date/Time Associated Diagnosis Comments PAP TEST- RESULT ONLY Routine 09/25/2011 0:00 EDT documented in this encounter Results * PAP TEST- RESULT ONLY (09/25/2011 0:00 EDT) Pathology Report: CYTOPATHOLOGY REPORT Reports generated via electronic interface contain original data; however they are lacking the format of the original report. Caution should be taken when reading/interpreti ng unformatted reports. Name: ? YANCYRADHA WILLIS ? Accession #: ? [id number] : ? 1975 (Age: 36) ??F ?Collect Date: ? 09/25/2011 Location: ? [facility] ? Receive Date: ? 09/26/2011 Provider: ?GAYATHRI PINEDA LEAD ETL DEVELOPER Copy to: ? Specimen/Source: ?Pap Test, Cervix/Endocervix, ThinPrep Imaging System with manual evaluation Last Menstrual Period: ? 2004 Hormonal/Contracep tive Status: ? Yes: Mirena ? SPECIMEN ADEQUACY ? Satisfactory for Evaluation - transformation zone component present GENERAL CATEGORIZATION ? Negative for Intraepithelial Lesion or Malignancy ? Document reviewed and electronically signed by: ? SHASHI Mena(ASCP) ? Report Date: ??10/02/2011 09:30 End of Report [facility] 09/25/2011 09/26/2011 Gayathri Pineda LEAD ETL DEVELOPER PATHOLOGY ORDERABLES [facility] [address] [place] [address] documented in this encounter Visit Diagnoses Not on filedocumented in this encounter
--- OUTSIDE RECORDS SUMMARY | 2023-12-17 10:08 | XMS_ITS | Encounter Summary ---
Author Organization [facility] Address [address] [place] [address] Care Team Providers Care Baker Doughnut Name Role Phone Roxanne Taveras MD Primary Care Provider [phone] Encounter Details Date Type Department Care Team (Late st Contact Info) Description 11/29/2014 Results Only [facility] [phone] Tiffanie Martin PA-C [address] [place] [phone] Social History Tobacco Use Types Packs/Day Years [...] Diagnosis Comments PAP TEST- RESULT ONLY Routine 11/29/2014 0:00 EDT documented in this encounter Results * PAP TEST- RESULT ONLY (11/29/2014 0:00 EDT) Pathology Report: CYTOPATHOLOGY REPORT Reports generated via electronic interface contain original data; however they are lacking the format of the original report. Caution should be taken when reading/interpreti ng unformatted reports. Name: ? RADHA MATHIAS ? Accession #: ? [id number] : ? 1975 (Age: 39) ??F ?Collect Date: ? 11/29/2014 Location: ? [facility] ? Receive Date: ? 12/01/2014 Provider: ?TIFFANIE MARTIN PA-C Copy to: ? Specimen/Source: ?Pap Test, Cervix/Endocervix, ThinPrep Imaging System with manual evaluation Last Menstrual Period: ? 2002 Infection History: ? Trichomonas: Tx of 08/01 Other: ? Additional clinical information: S/P Mirena IUD ? SPECIMEN ADEQUACY ? Satisfactory for Evaluation - transformation zone component present GENERAL CATEGORIZATION ? Negative for Intraepithelial Lesion or Malignancy INTERPRETATION ? Reactive cellular changes associated with inflammation present (includes repair). ? Document reviewed and electronically signed by: ? GRETA WEBB MD ? Report Date: ??12/06/2014 10:24 End of Report [facility] 11/29/2014 12/01/2014 Tiffanie Martin PA-C PATHOLOGY ORDERA BLES [facility] [address] [place] [address] documented in this encounter Visit Diagnoses Not on filedocumented in this encounter Care Teams Baker Doughnut Relationship Specialty Start Date End Date Roxanne Taveras MD [address] [place] [address] PCP - General 10/26/11 documented as of this encounter
--- OUTSIDE RECORDS SUMMARY | 2023-12-17 10:08 | XMS_ITS | Encounter Summary ---
Author Organization [facility] Address [address] [place] [address] Care Team Providers Care Residential Sales Name Role Phone Unavailable Primary Care Provider Unavailabl e Encounter Details Date Type Department Care Team (Late st Contact Info) Description 09/06/2005 Results Only [facility] - Maple conversion [address] [place] [address] Roxanne Taveras MD [address] [place], [place] [phone] Social History Tobacco Use Types Packs/Day Years Used Date Smoking Tobacco: Never Assessed Sex and Gender Information Value Date Recorded Sex Assigned at Not on file Gender Identity Not on file Sexual Orientation Not on file documented as of this encounter Plan of Treatment Not on file documented as of this encounter Procedures Procedure Name Priority Date/Time Associated Diagnosis Comments CYTOPATHOLOGY Routine 09/06/2005 0:00 EDT documented in this encounter Results * CYTOPATHOLOGY (09/06/2005 0:00 EDT) Pathology Report: CYTOPATHOLOGY REPORT Reports generated via electronic interface contain original data; however they are lacking the format of the original report. Caution should be taken when reading/interpreti ng unformatted reports. Name: ? RADHA MATHIAS ? Accession #: ? [id number] : ? 1975 (Age: 30) ??F ?Collect Date: ? 09/06/2005 Location: ? [facility] ? Receive Date: ? 09/10/2005 Provider: ?ROXANNE TAVERAS MD Copy to: ? Specimen/Source: ?ThinPrep Pap Test, Cervix/Endocervix, processed on Envio NetworksPrep Imaging System, with manual evaluation Last Menstrual Period: ? 04/23 Menstrual/Pregnanc y Status: ? SPECIMEN ADEQUACY ? Satisfactory for Evaluation - transformation zone component present GENERAL CATEGORIZATION ? Negative for Intraepithelial Lesion or Malignancy ? Document reviewed and electronically signed by: ? SHASHI Butts(ASCP) ? Report Date: ??09/12/2005 10:01 End of Report [facility] 09/06/2005 09/10/2005 Roxanne Taveras MD PATHOLOGY ORDERABLES [facility] [address] [place] [address] documented in this encounter Visit Diagnoses Not on filedocumented in this encounter
--- OUTSIDE RECORDS SUMMARY | 2023-12-17 10:08 | XMS_ITS | Clinical Summary ---
Author Organization [facility] Address [address] [place] [address] Care Team Providers Care Energy Professional Name Role Phone Roxanne Taveras MD Primary Care Provider [phone] Social History Tobacco Use Types Packs/Day Years Used Date Smoking Tobacco: Never Assessed Sex and Gender Information Value Date Recorded Sex Assigned at Not on file Gender Identity Not on file Sexual Orientation Not on file Plan of Treatment Health Maintenance Due Date Last Done Comments Hepatitis C Screen 1975 Hepatitis B Vaccine (1 of 3 - 19+ 3-dose series) 05/01 COVID-19 Vaccine ( season) 2022 Care Teams Energy Professional Relationship Specialty Start Date End Date Roxanne Taveras MD [address] [place] [address] PCP - General 10/26/11
--- OUTSIDE RECORDS SUMMARY | 2023-12-17 10:08 | XMS_ITS | Encounter Summary ---
Author Organization [facility] Address [address] [place] [address] Care Team Providers Care Microsoft Net Developer Name Role Phone Roxanne Taveras MD Primary Care Provider Encounter Details Date Type Department Care Team (Late st Contact Info) Description 07/14/2013 Results Only [facility] Laboratory Services - [facility] [place] [address] [place] [address] Tiffanie Martin PA-C [address] [place] [address] Social History Tobacco Use Types Packs/Day Years [...] Diagnosis Comments PAP TEST- RESULT ONLY Routine 07/14/2013 0:00 EDT documented in this encounter Results * PAP TEST- RESULT ONLY (07/14/2013 0:00 EDT) Pathology Report: CYTOPATHOLOGY REPORT Reports generated via electronic interface contain original data; however they are lacking the format of the original report. Caution should be taken when reading/interpreti ng unformatted reports. Name: ? YANCY RADHA ? Accession #: ? [id number] : ? 1975 (Age: 38) ??F ?Collect Date: ? 07/14/2013 Location: ? [facility] ? Receive Date: ? 07/15/2013 Provider: ?TIFFANIE MANDUJANO Copy to: ? Specimen/Source: ?Pap Test, Cervix/Endocervix, ThinPrep Imaging System with manual evaluation Last Menstrual Period: ? 2006 Hormonal/Contracep tive Status: ? Intrauterine device: Mirena Other: ? Additional clinical information: no abnormal paps ? SPECIMEN ADEQUACY ? Satisfactory for Evaluation - transformation zone component present GENERAL CATEGORIZATION ? Negative for Intraepithelial Lesion or Malignancy INTERPRETATION ? Trichomonas vaginalis present. ? Document reviewed and electronically signed by: ? Vanessa Mooney, CT(ASCP) ? Report Date: ??07/21/2013 14:36 End of Report [facility] 07/14/2013 07/15/2013 Tiffanie Martin PA-C PATHOLOGY [facility] [address] [place] [address] documented in this encounter Visit Diagnoses Not on filedocumented in this encounter Care Teams Microsoft Net Developer Relationship Specialty Start Date End Date Roxanne Taveras MD [address] [place] [address] PCP - General 10/26/11 documented as of this encounter
--- OUTSIDE RECORDS SUMMARY | 2023-12-17 10:08 | XMS_ITS | Encounter Summary ---
Author Organization [facility] Address [address] [place] [address] Care Team Providers Care Roller Coaster Operator Name Role Phone Roxanne Taveras MD Primary Care Provider [phone] Encounter Details Date Type Department Care Team (Latest Contact Info) Description 01/25/2022 Lab Requisition [facility] - Main [address] [address] Boni Cervantes MD [address] [place] [phone] Dysphagia, pharyngoesophageal phase Social History Tobacco Use Types Packs/Day Years Used Date Smoking Tobacco: Never Assessed Sex and Gender Information Value Date Recorded Sex Assigned at Not on file Gender Identity Not on file Sexual Orientation Not on file documented as of this encounter Plan of Treatment Not on file documented as of this encounter Procedures Procedure Name Priority Date/Time Associated Diagnosis Comments SURGICAL PATHOLOGY Today 01/24/2022 12:37 EST Dysphagia, pharyngoesophageal phase documented in this encounter Results * SURGICAL PATHOLOGY (01/24/2022 12:37 EST) Note to Patient The following pathology results have been interpreted by your pathologist and may be available to you before your health provider has had the opportunity to review them. Please allow time for your provider to receive these results and explore management options, if applicable. 01/26/2022 9:32 EST [facility] Final Diagnosis A. DUODENUM, BIOPSY: - No diagnostic abnormality. B. DUODENAL BULB, BIOPSY: - No diagnostic abnormality. C. GASTRIC ANTRUM, BIOPSY: - Reactive gastropathy. - Negative for intestinal metaplasia and dysplasia. D. GASTRIC BODY, BIOPSY: - No diagnostic abnormality. E. DISTAL ESOPHAGUS, BIOPSY: - Superficial squamous mucosa with no diagnostic abnormality. F. MID ESOPHAGUS, BIOPSY: - Superficial squamous mucosa with no diagnostic abnormality. 01/26/2022 9:32 [facility] Attestation By the signature below, the attending physician certifies that they have 1) personally conducted a gross and/or microscopic examination of the described specimen(s), and/or personally interpreted the results of laboratory testing of the described specimen(s), and 2) personally rendered or confirmed the above diagnosis. 01/26/2022 9:32 [facility] at 0932 Clinical History dysphagia with solid foods 01/26/2022 9:32 [facility] Gross Description A. The specimen is received in formalin labeled with ? Radha M. [place]? and ? A? and ? duodenum? are 4 mucosal fragments that range in size from 0.1 x 0.1 x 0.2 cm up to 0.1 x 0.2 x 0.3 cm. The specimen is entirely submitted in 1 cassette. B. The specimen is received in formalin labeled with ? Radha M. [place]? and ? B? and ? duodenal bulb? are 3 mucosal fragments that range in size from 0.1 x 0.1 x 0.1 cm up to 0.1 x 0.1 x 0.2 cm. The specimen is entirely submitted in 1 cassette. C. The specimen is received in formalin labeled with ? Radha M. [place]? and ? C? and ? gastric antrum? are 2 mucosal fragments that measure 0.1 x 0.1 x 0.1 cm and 0.1 x 0.2 x 0.3 cm. The specimen is entirely submitted in 1 cassette. D. The specimen is received in formalin labeled with ? Radha M. [place]? and ? D? and ? gastric body? is a mucosal fragment that measures 0.1 x 0.2 x 0.4 cm. The specimen is entirely submitted in 1 cassette. E. The specimen is received in formalin labeled with ? Radha M. [place]? and ? E? and ? distal esophagus? are 3 mucosal fragments that range size from 0.1 x 0.1 x 0.1 cm up to 0.1 x 0.1 x 0.2 cm. The specimen is entirely submitted in 1 cassette. F. The specimen is received in formalin labeled with ? Radha Hernandez? and ? F? and ? mid esophagus? are 2 mucosal fragments that measure 0.1 x 0.1 x 0.1 cm and 0.1 x 0.1 x 0.2 cm. The specimen is entirely submitted in 1 cassette. Ena Rogers 01/25/2022 11:36 01/26/2022 9:32 EST [facility] Performing Lab [facility] 01/26/2022 9:32 [facility] Scanned Images 01/26/2022 9:32 EST [facility] Tissue ENTIRE ESOPHAGUS / Unknown 01/24/2022 12:37 EST 01/25/2022 7:15 EST Tissue specimen (specimen) DUODENAL AMPULLA STRUCTURE / Unknown 01/24/2022 12:37 EST 01/25/2022 7:15 EST Tissue specimen (specimen) PYLORIC ANTRUM STRUCTURE / Unknown 01/24/2022 12:37 EST 01/25/2022 7:15 EST Tissue specimen (specimen) GASTRIC CORPUS STRUCTURE / Unknown 01/24/2022 12:37 EST 01/25/2022 7:15 EST Tissue specimen (specimen) ESOPHAGEAL STRUCTURE / Unknown 01/24/2022 12:37 EST 01/25/2022 7:15 EST Tissue specimen (specimen) ESOPHAGEAL STRUCTURE / Unknown 01/24/2022 12:37 EST 01/25/2022 7:15 EST Boni Cervantes MD PATHOLOGY ORD ERABLES [facility] [address] [place] [address] documented in this encounter Visit Diagnoses Diagnosis Dysphagia, pharyngoesophageal phase documented in this encounter Care Teams Roller Coaster Operator Relationship Specialty Start Date End Date Roxanne Taveras MD [address] [place] [id number] PCP - General 10/26/11 documented as of this encounter
[2023-12-17 10:23] VITALS: BP 153/103; PULSE 85; RESP 18; TEMP 36.9; O2SAT 96
== END 2023-12-17 10:26 | disposition home or self-care (01) ==
PROVIDERS: Emergency Provider Emergency Medicine
DX: J45.20 Mild intermittent asthma, uncomplicated (principal); R05.1 Acute cough; R07.81 Pleurodynia; F17.200 Nicotine dependence, unspecified, uncomplicated
CPT/HCPCS: 99283; 71046; 71100

== ENCOUNTER 2023-12-22 09:39 | Observation (INO) | payer MEDICAID, SELFPAY ==
[2023-12-22] VITALS (31 sets, daily range): BP systolic 135–204; BP diastolic 62–105; PULSE 72–100; RESP 5–28; TEMP 35.8–36.6; O2SAT 87–96
--- NOTE | 2023-12-22 09:30 | RT.EKG_ITS ---
APPROVED REPORT Exam: Resting ECG Reason for Exam: SOB Patient Location: E HR:90 bpm ECG Measurements Heart Rate 90 AXIS NH 153 P 57 QRSd 91 QRS 98 QT 385 T 44 QTc 472 Conclusion Sinus rhythm, rate 90 No interval abnormalities No STEMI
--- NOTE | 2023-12-22 09:47 | ED.GENADUL_ITS ---
Discharge Plan Disposition Patient Disposition: Admit to [facility] Condition: Stable Discharge Details Clinical Impression: Exacerbation of RAD (reactive airway disease), Smoker, GERD (gastroesophageal reflux disease), Hyperlipidemia, Hypertension, Cough Primary Care Provider: None,None ED Provider: Ally Centeno Home Meds and New Rx's Prescriptions: New prednisone 20 mg tablet 40 mg PO DAILY 4 Days Qty: 8 0RF doxycycline hyclate 100 mg capsule 100 mg PO BID 5 Days Qty: 10 0RF albuterol sulfate 90 mcg/actuation HFA aerosol inhaler 2 puff inhalation QID PRNQty: 6.7 0RF No Action Mirena 1 EACH intrauterine device 1 ea Intrauterine ONCE Qty: 1 Patient Comments: in place. To be switched out in 2022 albuterol sulfate [Proventil HFA] 90 mcg/actuation HFA aerosol inhaler 2 puff inhalation Q6H PRN (Reason: shortness of breath or wheezing) Qty: 8.5 3RF lidocaine 5 % adhesive patch,medicated 1 patch topical DAILY Qty: 15 0RF Rx Instructions: leave on most painful area for up to 12 hrs HPI General Mode of arrival: ambulatory . Date/Time Provider Initiated Documentation: 12/22/23 09:41 . Limitations to Documentation: no limitations . Information obtained by: patient and old records reviewed . HPI Narrative: HPI: This is a 48-year-old female patient with a past medical history significant for reactive airway disease, hypertension, hyperlipidemia, and GERD, presenting for evaluation of a sudden onset of shortness of breath. The patient reports that over the last week or so she has been developing a viral upper respiratory infection, was seen at this facility for workup about a week ago with reassuring results. This morning, she states that she woke up and promptly developed severe shortness of breath. She states that since her discharge last week she has gone through her entire metered-dose inhaler, and did not have any albuterol leftover. She states that her breath has been difficult and improved slightly with the albuterol, she has had continued cough for which she is taking Mucinex. Exam: Gen: Awake and alert, in acute respiratory distress HEENT: Non-icteric sclera Neck: Supple Lungs: Tachypneic, labored breathing. The patient has decreased breath sounds in the bases, with a prolonged expiratory phase. CV: Appears well perfused, heart with tachycardic rate but regular rhythm Abdomen: Non-distended, soft MSK: Moves 4 extremities without apparent limitation in ROM. Skin: Visualized skin without rashes, cyanosis. The patient has no peripheral edema, no unilateral calf tenderness or swelling Neuro: Normal Gait, no obvious focal deficits or facial asymmetry. Speaks in full, clear sentences. Psych: Appropriate for situation. MDM: This is a 48-year-old female patient presenting for evaluation of sudden onset shortness of breath. My differential includes but is not limited to reactive airway disease exacerbation, certainly considered viral upper respiratory infection and pneumonia. I considered pulmonary edema, pleural effusion, though the patient has no history of heart failure and does not appear fluid overloaded on physical examination. Considered pneumothorax. The patient is reassuringly oxygenating well on room air, mild tachycardia that was noted on initial examination resolved spontaneously. The patient has no personal history of thromboembolic disease to significantly increase my concern for PE. We will proceed with treatment for reactive airway disease exacerbation, including duo nebulizer, Solu-Medrol, magnesium. I will obtain an EKG, chest x-ray, and laboratory studies to include CBC, CMP, magnesium, Fluvid. ED Course: Following the duo nebulizer, the patient reports a slight improvement in her work of breathing, lung sounds remain diminished bilaterally. The second do nebulizer was provided. I independently interpreted the laboratory studies, which show no anemia, or thrombocytopenia. The chemistry panel is without evidence of electrolyte abnormality, kidney dysfunction, or liver injury. She does have a leukocytosis to 14, and negative COVID and influenza test. VBG is without hypercarbia or acidosis, mild elevation in her bicarb to 29. The patient's chest x-ray shows some mild interstitial fullness, which could represent CHF in the correct clinical context. Though the patient does not have a history of same and is without evidence of fluid overload on exam we did add on a BNP which was low, making fluid overload less likely. The patient has significant improvement in her work of breathing on reassessment, there was noted to be slightly hypoxic, 89 to 90% on room air. She desaturated quickly to 84% with ambulation, and for this reason we have admitted her to our hospital for observation for her reactive airway disease exacerbation. I did provide her with a dose of doxycycline here in the emergency department. While under my care she remained hemodynamically appropriate, had improvement in her saturations of 1 L/min of oxygen by nasal cannula. Transferred from our department without incident. Ally Centeno MD Related Data Home Medications ?Medication ?Instructions ?Recorded ?Confirmed levonorgestrel 21 mcg/24 hr (up to 1 ea intrauterine ONCE #1 implant 12/27/14 12/22/23 8 years) 52 mg intrauterine device (Mirena) albuterol sulfate 90 mcg/actuation 2 puff inhalation Q6H PRN 01/28/23 12/22/23 aerosol inhaler (Proventil HFA) shortness of breath or wheezing #8.5 grams lidocaine 5 % topical patch 1 patch topical DAILY #15 ea 12/17/23 12/22/23 albuterol sulfate 90 mcg/actuation 2 puff inhalation QID PRN #6.7 12/22/23 aerosol inhaler grams doxycycline hyclate 100 mg capsule 100 mg PO BID 5 days #10 caps 12/22/23 prednisone 20 mg tablet 40 mg (2 x 20 mg) PO DAILY 4 days 12/22/23 #8 tabs Previous Rx's ?Medication ?Instructions ?Recorded albuterol sulfate 90 mcg/actuation 2 puff inhalation Q6H PRN 01/28/23 aerosol inhaler (Proventil HFA) shortness of breath or wheezing #8.5 grams lidocaine 5 % topical patch 1 patch topical DAILY #15 ea 12/17/23 albuterol sulfate 90 mcg/actuation 2 puff inhalation QID PRN #6.7 12/22/23 aerosol inhaler grams doxycycline hyclate 100 mg capsule 100 mg PO BID 5 days #10 caps 12/22/23 prednisone 20 mg tablet 40 mg (2 x 20 mg) PO DAILY 4 days 12/22/23 #8 tabs Allergies Allergy/AdvReac Type Severity Reaction Status Date / [facility] Adv[facility] Intermediate Nightmares Unverified 12/22/23 09:50 General ADRIEN: 3 Medical Decision Making Quality:SDOH Health Related Social Needs: No Data to Display PFSH All Active Problems Exacerbation of RAD (reactive airway disease) (Acute) Mild intermittent reactive airway disease (Acute) Cough (Acute) Rib pain on left side (Acute) Hypothyroidism (Chronic) Obesity (Chronic) Neck pain (Acute) Hypertension (Chronic) Dental abscess (Acute) Pelvic pain (Acute) Hyperlipidemia (Acute) Hirsutism (Acute) GERD (gastroesophageal reflux disease) (Chronic) Periarthritis of shoulder (Acute) Smoker (Acute) Medical History Asthma Geographical. [place] no problem. Cervical radiculitis DJD (degenerative joint disease) of cervical spine Hx of abscess of breast Hypothyroid Obesity Presence of 52 mg levonorgestrel-releasing intrauterine device (IUD) Mirena removed and replaced 06/06/17 Stenosis, cervical spine lue neuropathy Suppurative hidradenitis (12/08/14) Surgical History Status post incision and drainage breast abscess 10/23/17 Family History Mother Heart disease Hyperlipidemia Hypertension Age related osteoporosis Father Heart disease Hyperlipidemia Aneurysm Grandfather Personal history of malignant neoplasm colon Maternal Aunt Personal history of malignant neoplasm breast Sister No problems noted. Maternal Grandfather , 44 Cancer Paternal Grandfather , 59 Cancer Maternal Grandmother , 93 Cancer Paternal Grandmother , 69 Cancer Heart disease Hyperlipidemia Hypertension Social History (Updated 06/21/22 @ 16:27 by Morena Benton) Smoking/Tobacco Use Status: Current every day Tobacco Type: cigarettes Tobacco: How many years used: 28 Second Hand Exposure: Yes Smoking risk assessment performed?: Yes Alcohol Intake: never Drug use: Daily Substance use type: marijuana Caregiver/Support person: No Household members: significant other and children Housing: apartment Communication Needs: None Do you need help understanding health information?: Never Pets and animals: Yes Pets and animals: cat(s) and hamster(s) Sexually active: Yes Do you think of yourself as: straight/heterosexual Current gender identity: female What is your relationship status?: living with partner How often do you talk on the phone with friends or family?: never How often do you get together with friends or relatives?: never Do you belong to any clubs or organized social groups?: no Panel score (0-1 are the most socially isolated patients): 1 What type of physical activity do you participate in: none Sharri/Religious: No preference Special sharri needs: No Seatbelt use: always Helmet use: No Drive intox or ride w/intox pedicab driver: No Do you feel safe at home: Yes Do you feel safe in your relationship?: Yes Female Reproductive History Menstrual Age of Menarche: 10 Duration of menses: <3 days control method: progestin IUCD History History 1 Para 1 Hx # Term Pregnancies Multiple births Hx # Pregnancies Ectopic pregnancies AB induced Hx Number of Living Children 1 AB spontaneous Past Pregnancies Del. Date GA/Weeks # Preg Succ Route Wgt Sex Labor Lgth Anesth esia Location Prov [facility] 01/29/06 vaginal 2721.554 g Female
--- OUTSIDE RECORDS SUMMARY | 2023-12-22 09:58 | XMS_ITS | Clinical Summary ---
Author Organization [facility] Address [address] [place] [address] Care Team Providers Care Airline Lounge Receptionist Name Role Phone Roxanne Taveras MD Primary Care Provider [phone] Social History Tobacco Use Types Packs/Day Years [...] series) 05/01 COVID-19 Vaccine ( season) 2022 Radha Hernandez Personal/Famil y Self 1975 [address] [place] [address] Radha Hernandez Personal/Famil y Self 1975 [address] [place] [address] Radha Hernandez Personal/Famil y Self 1975 [address] [place] [address] Care Teams Airline Lounge Receptionist Relationship Specialty Start Date End Date Roxanne Taveras MD [address] [place] [address] PCP - General 10/26/11
--- OUTSIDE RECORDS SUMMARY | 2023-12-22 09:58 | XMS_ITS | Referral Summary ---
Author Organization [facility] Address [address] [place] [address] Care Team Providers Care Power Shovel Operator Helper Name Role Phone Roxanne Taveras MD Primary Care Provider [phone] Social History Tobacco Use Types Packs/Day Years Used Date Smoking Tobacco: Never Assessed Sex and Gender Information Value Date Recorded Sex Assigned at Not on file Gender Identity Not on file Sexual Orientation Not on file Plan of Treatment Not on file Care Teams Power Shovel Operator Helper Relationship Specialty Start Date End Date Roxanne Taveras MD [address] [place], [place] [address] PCP - General 10/26/11
--- OUTSIDE RECORDS SUMMARY | 2023-12-22 09:58 | XMS_ITS | Encounter Summary ---
Author Organization [facility] Address [address] [place] [address] Care Team Providers Care Product Inspection Coordinator Name Role Phone Roxanne Taveras MD Primary Care Provider [phone] Encounter Details Date Type Department Care Team (Late st Contact Info) Description 07/14/2013 Results Only [facility] Laboratory Services - [facility] ([facility] [address] [place] [address] Tiffanie Martin PA-C [address] [place] [address] Social History Tobacco Use Types Packs/Day Years [...] ? YANCY RADHA ? Accession #: ? [id number] : ? 1975 (Age: 38) ??F ?Collect [...] 07/14/2013 07/15/2013 Tiffanie Martin PA-C PATHOLOGY [facility] [address] [place] [address] documented in this encounter Visit Diagnoses Not on filedocumented in this encounter Care Teams Product Inspection Coordinator Relationship Specialty Start Date End Date Roxanne Taveras MD [address] [place] [address] PCP - General 10/26/11 documented as of this encounter
--- OUTSIDE RECORDS SUMMARY | 2023-12-22 09:58 | XMS_ITS | Encounter Summary ---
Author Organization [facility] Address [address] [place] [address] Care Team Providers Care Bike Designer Name Role Phone Roxanne Taveras MD Primary Care Provider [phone] Encounter Details Date Type Department Care Team (Late st Contact Info) Description 11/29/2014 Results Only [facility] [phone] Tiffanie Martin PA-C [address] [place] [phone] Social History Tobacco Use Types Packs/Day Years [...] ? RADHA MATHIAS ? Accession #: ? [id number] : ? 1975 (Age: 39) ??F ?Collect [...] Report Date: ??12/06/2014 10:24 End of Report [facility] 11/29/2014 12/01/2014 Tiffanie Martin PA-C PATHOLOGY [facility] [address] [place] [address] documented in this encounter Visit Diagnoses Not on filedocumented in this encounter Care Teams Bike Designer Relationship Specialty Start Date End Date Roxanne Taveras MD [address] [place] [address] PCP - General 10/26/11 documented as of this encounter
--- OUTSIDE RECORDS SUMMARY | 2023-12-22 09:58 | XMS_ITS | Encounter Summary ---
Author Organization [facility] Address [address] [place] [address] Care Team Providers Care Transportation Attendant Name Role Phone Unavailable Primary Care Provider Unavailabl e Encounter Details Date Type Department Care Team (Late st Contact Info) Description 09/06/2005 Results Only [facility] - Maple conversion [address] [place] [address] Roxanne Taveras MD [address] [place], [place] [id number] Social History Tobacco Use Types Packs/Day Years [...] ? RADHA MATHIAS ? Accession #: ? [id number] : ? 1975 (Age: 30) ??F ?Collect Date: ? 09/06/2005 Location: ? [facility] ? Receive Date: ? 09/10/2005 Provider: ?ROXANNE TAVERAS MD Copy to: ? Specimen/Source: ?ThinPrep Pap Test, Cervix/Endocervix, processed on PhotoPharmicsPrep Imaging System, with manual evaluation Last Menstrual [...] Taveras MD PATHOLOGY ORDERABLES [facility] [address] [place] [address] documented in this encounter Visit Diagnoses Not on filedocumented in this encounter
--- OUTSIDE RECORDS SUMMARY | 2023-12-22 09:58 | XMS_ITS | Encounter Summary ---
Author Organization [facility] Address [address] [place] [address] Care Team Providers Care Clinical Account Manager Name Role Phone Unavailable Primary Care Provider Unavailabl e Encounter Details Date Type Department Care Team (Late st Contact Info) Description 09/25/2011 Results Only [facility] Laboratory Services - [facility] ([facility]) [address] [place], [place] [address] Gayathri Pineda, [facility] [address] [address] Social History Tobacco Use Types Packs/Day [...] ? YANCYRADHA WILLIS ? Accession #: ? [id number] : ? 1975 (Age: 36) ??F ?Collect Date: ? 09/25/2011 Location: ? [facility] ? Receive Date: ? 09/26/2011 Provider: ?GAYATHRI PINEDA [facility]ER Copy to: ? Specimen/Source: ?Pap Test, Cervix/Endocervix, [...] Report [facility] 09/25/2011 09/26/2011 Gayathri Pineda [facility] PATHOLOGY ORDERABLES [facility] [address] [place] [address] documented in this encounter Visit Diagnoses Not on filedocumented in this encounter
--- OUTSIDE RECORDS SUMMARY | 2023-12-22 09:58 | XMS_ITS | Encounter Summary ---
Author Organization [facility] Address [address] [place] [address] Care Team Providers Care Engraver Name Role Phone Unknown, Provider Primary Care Provider Unava ilable Encounter Details Date Type Department Care Team (Late st Contact Info) Description 10/23/2011 Results Only [facility] Laboratory Services - [facility] [place] [place] [address] [place], [place] [phone] Roxanne Taveras MD [address] [place] [address] Social History Tobacco Use Types Packs/Day Years [...] when reading/interpreti ng unformatted reports. Name: ? STEWRADHA Snyder ? Accession #: ? [id number] ? : ? 1975 (Age: 36) ??F [...] moderate amount of cytoplasm. 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 ??(Dr. Baker)/frieda Document reviewed and electronically [...] Gross Description: ? Received in formalin labelled Stwe Radha and L side of neck is a 0.9 x 0.7 x 0.6 cm ovoid, plummer-brown, granular, friable, focally hairbearing papule. ??The margin is inked. ??The specimen is trisected and entirely submitted in a single cassette. ??(Noemi Sorenson/ljn End of Report [facility] 10/23/2011 10/24/2011 9:2 3 EDT Roxanne Taveras MD PATHOLOGY ORDERABLES Performing Organization Address City/State/[facility] Co de Phone Number [facility] [address] [place] [address] documented in this encounter Visit Diagnoses Not on filedocumented in this encounter Care Teams Engraver Relationship Specialty Start Date End Date Unknown, Provider, PCP - General 10/24/11 10/25/11 documented as of this encounter
--- OUTSIDE RECORDS SUMMARY | 2023-12-22 09:58 | XMS_ITS | Encounter Summary ---
Author Organization [facility] Address [address] [place] [address] Care Team Providers Care Golf Club Head Inspector Name Role Phone Roxanne Taveras MD Primary Care Provider Encounter Details Date Type Department Care Team (Latest Contact Info) Description 01/25/2022 Lab Requisition [facility] - Main [address] [address] Boni Cervantes MD [address] [place] [phone] Dysphagia, pharyngoesophageal phase Social History Tobacco [...] management options, if applicable. 01/26/2022 9:32 EST [facility] Final Diagnosis A. DUODENUM, BIOPSY: [...] mucosa with no diagnostic abnormality. 01/26/2022 9:32 [facility] Attestation By the signature below, the attending physician certifies that they have 1) personally conducted a gross and/or microscopic examination of the described specimen(s), and/or personally interpreted the results of laboratory testing of the described specimen(s), and 2) personally rendered or confirmed the above diagnosis. 01/26/2022 9:32 [facility] at 0932 Clinical History dysphagia with solid foods 01/26/2022 9:32 [facility] Gross Description A. The specimen is received in formalin labeled with ? Radha M. [place]? and ? A? and ? duodenum? are 4 mucosal fragments that range in size from 0.1 x 0.1 x 0.2 cm up to 0.1 x 0.2 x 0.3 cm. The specimen is entirely submitted in 1 cassette. B. The specimen is received in formalin labeled with ? Radha M. [place]? and ? B? and ? duodenal bulb? [...] in formalin labeled with ? Radha M. [place]? and ? E? and ? distal esophagus? [...] Ena Rogers 01/25/2022 11:36 01/26/2022 9:32 EST [facility] Performing Lab [facility] 01/26/2022 9:32 [facility] Scanned Images 01/26/2022 9:32 EST [facility] Tissue ENTIRE ESOPHAGUS / Unknown [...] EST Boni Cervantes MD PATHOLOGY ORD ERABLES [facility] [address] [place] [address] documented in this encounter Visit Diagnoses Diagnosis Dysphagia, pharyngoesophageal phase documented in this encounter Care Teams Golf Club Head Inspector Relationship Specialty Start Date End Date Roxanne Taveras MD [address] [place] [address] PCP - General 10/26/11 documented as of this encounter
--- OUTSIDE RECORDS SUMMARY | 2023-12-22 09:58 | XMS_ITS | Encounter Summary ---
Author Organization [facility] Address [address] [place] [address] Care Team Providers Care Biometrics Specialist Name Role Phone Roxanne Taveras MD Primary Care Provider Encounter Details Date Type Department Care Team (Late st Contact Info) Description 11/06/[address] [facility] Pathology & Laboratory Medicine - [address] [address] Nelly Mendez MD [address] [place] [address] [place] [address] Encounter for other general examination [...] types, PCR Negative Negative 11/13/2021 15:19 EDT [facility] Comment:No E6 or E7 mRNA is detected from HPV types 16,18,31,33,35,39,45,51,52,56,58,59,66, and 68 by clinical medical transcriptionist mediated amplification. Papanicolaou smear specimen (specimen) CERVIX UTERI STRUCTURE / Unknown 11/06/2021 10:50 EDT 11/10/2021 11:00 EDT Nelly Mendez MD MICROBIOLOGY - GENER AL ORDERABLES [facility] [address] [place] [address] * PAP TEST (11/06/2021 10:50 EDT) Specimens A. Cervix and/or Endocervix , ThinPrep Imaging System with Manual Evaluation 11/13/2021 15:19 [facility] Specimen Adequacy Satisfactory for Evaluation - transformation zone component present 11/13/2021 15:19 [facility] General Categorization Negative for intraepithelial lesion or malignancy 11/13/2021 15:19 [facility] Attestation . 11/13/2021 15:19 [facility] at 1519 Clinical History See below 11/14/19 15:19 [facility] HPV The result for the Human Papillomavirus (HPV) Detection-High Risk Types is Negative. No E6 or E7 mRNA is detected from HPV types 16,18,31,33,35,39 ,45,51,52,56,58,5 9,66, and 68 by clinical medical transcriptionist mediated amplification.Regine ting was performed on specimen [id number] and was resulted on 11/13/2021 1517 EDT by LISET, LAB INSTRUMENT RESULTS IN 11/13/2021 15:19 [facility] Performing Lab [facility] 11/13/2021 15:19 [facility] Scanned Images 11/13/2021 15:19 [facility] Papanicolaou smear specimen (specimen) CERVIX UTERI STRUCTURE / Unknown 11/06/2021 10:50 EDT 11/07/2021 12:50 EDT Nelly Mendez MD PATHOLOGY ORDERABLES Performing Organization Address City/[facility]/ZIP Co de Phone Number [facility] [address] [place] [address] * CHLAMYDIA/N. GONORRHOEAE AMPLIFIED RNA, THINPREP (11/06/2021 10:50 EDT) Neisseria gonorrhoeae Result Negative Negative 11/07/2021 14:45 EDT [facility] Chlamydia trachomatis Result Negative Negative 11/07/2021 14:45 EDT [facility] Papanicolaou smear specimen (specimen) CERVIX UTERI STRUCTURE / Unknown 11/06/2021 10:50 EDT 11/07/2021 8:39 EDT Nelly Mendez MD MICROBIOLOGY - GENER AL ORDERABLES Performing Organization Address City/[facility]/ZIP Co de Phone Number [facility] [address] [place] [address] documented in this encounter Visit Diagnoses Diagnosis Encounter for other general examination documented in this encounter Care Teams Biometrics Specialist Relationship Specialty Start Date End Date Roxanne Taveras MD [address] [place] [address] PCP - General 10/26/11 documented as of this encounter
[2023-12-22] MEDS: Albuterol/Ipratropium 3 ML UPD VIAL UPD ×3 (10:00→17:19)
[2023-12-22] MEDS: Normal Saline Flush 10 ML SYR IVP ×2 (10:07→19:59)
[2023-12-22] MEDS: methylPREDNISolone SUCC 125 MG VIAL IVP (10:07)
[2023-12-22] MEDS: MAGNESIUM SULFATE 2 GM/50 ML BAG IV_INF (10:07)
[2023-12-22 10:12] LABS: BE (Venous) 5 mmol/L (-2-3); HCO3 (Venous) 29 mmol/L (23-28); O2 Sat (Venous) 90 %; TCO2 (Venous) 26 mmol/L (24-29); pCO2 (Venous) 46 mmHg (41-51); pH (Venous) 7.41 (7.31-7.41); pO2 (Venous) 55 mmHg
[2023-12-22 10:15] LABS: Abs Immature Grans 0.11 10^3/uL (0.0-0.06); Absolute Basophil Count 0.07 10^3/uL (0.0-0.2); Absolute Eosinophil Count 0.43 10^3/uL (0.0-0.7); Absolute Lymphocyte Count 2.92 10^3/uL (1.2-3.4); Basophils % 0.5 %; Eosinophils % 2.9 %; HGB 15.5 g/dL (11.2-15.7); Immature Grans % 0.7 %; Lymphocytes % 19.7 %; MCH 29.3 pg (27.0-33.0); MCV 89 fL (80-95); MPV 8.8 fL (8.0-11.0); Monocytes % 6.3 %; Neutrophils % 69.9 %; Platelet Count 455 10^3/uL (130-400); RBC 5.29 10^6/uL (3.93-5.22); RDW 13.7 % (11.7-14.6); RDW-SD 45.2 fL; WBC 14.83 10^3/uL (4.4-10.8)
[2023-12-22 10:16] LABS: Absolute Monocyte Count 0.93 10^3/uL (0.1-0.8); Absolute Neutrophil Count 10.37 10^3/uL (1.2-6.7)
--- NOTE | 2023-12-22 10:25 | DI.RAD_ITS ---
Exam(s) XR CHEST 2V PA LATERAL EXAM: XR CHEST 2V PA LATERAL CLINICAL HISTORY: SOB TECHNIQUE: 2D digital imaging was performed. Two views. COMPARISON: CR XR CHEST 2V PA LATERAL from 05/23/[address] ABDOMEN PELVIS W from 11/05/2022 CR XR RIBS LT W PA LAT CHEST from 12/17/2023 FINDINGS: Overlying monitoring leads. HEART: Normal size. Aorta: Not dilated. PULMONARY VASCULATURE: Normal. MEDIASTINUM: Unremarkable. LUNGS: Mildly increased interstitial markings could indicate mild CHF. No focal infiltrate. PLEURAL SPACE: No pleural effusion or pneumothorax. BONE:Unremarkable for age. SOFT TISSUES: Unremarkable. IMPRESSION: Question of mild CHF. DATA REPOSITORY: RADIATION DOSE DELIVERED:
[2023-12-22 10:41] LABS: ALT 35 U/L (14-59); AST 34 U/L (15-37); Albumin 3.6 g/dL (3.4-5.0); Alkaline Phosphatase 118 U/L (46-116); Anion Gap 8.4 mmol/L (3-11); BUN 9 mg/dL (7-18); Bilirubin, Total 0.58 mg/dL (0.2-1.0); CO2 29.6 mmol/L (21.0-32.0); CREATININE 0.9 mg/dL (0.55-1.02); Calcium 8.9 mg/dL (8.5-10.1); Chloride 103 mmol/L (98-107); Estimated GFR 78.37 (mL/min/1.73m2); Glucose 96 mg/dL (74-106); Magnesium 2.2 mg/dL (1.8-2.4); Potassium 3.6 mmol/L (3.5-5.1); Sodium 141 mmol/L (136-145); Total Protein 8.2 g/dL (6.4-8.2)
[2023-12-22 10:54] LABS: COVID-19 PCR Negative (Negative); Influenza A PCR Negative (Negative); Influenza B PCR Negative (Negative); RSV PCR Negative (Negative)
[2023-12-22 10:58] LABS: Source Nasopharynx
--- NOTE | 2023-12-22 11:56 | DI.VRAD_ITS ---
PROCEDURE INFORMATION: Exam: XR Chest Exam date and time: 12/22/2023 10:22 AM Age: 48 years old Clinical indication: Shortness of breath TECHNIQUE: Imaging protocol: Radiologic exam of the chest. Views: 2 views. COMPARISON: CR XR RIBS LT W PA LAT CHEST 12/17/2023 9:19 AM FINDINGS: Lungs: Unremarkable. No consolidation. Pleural spaces: Unremarkable. No pleural effusion. No pneumothorax. Heart/Mediastinum: Unremarkable. No cardiomegaly. Bones/joints: Unremarkable. IMPRESSION: No acute findings. Dictated and Authenticated by: Lawrence Leija MD. Ordering:GEOVANNY Matt MD
[2023-12-22 12:21] LABS: NT-proBNP 129 pg/mL (<300)
--- OUTSIDE RECORDS SUMMARY | 2023-12-22 14:51 | XMS_ITS | Encounter Summary ---
Author Organization [facility] Address [address] [place] [address] Care Team Providers Care Town Clerk Name Role Phone Unavailable Primary Care Provider Unavailabl e Encounter Details Date Type Department Care Team (Late st Contact Info) Description 09/06/2005 Results Only [facility] - Maple conversion [address] [place] [address] Roxanne Taveras MD [address] [place], [place] [id number] Social History Tobacco Use Types Packs/Day Years [...] ? RADHA MATHIAS ? Accession #: ? [id number] : ? 1975 (Age: 30) ??F ?Collect Date: ? 09/06/2005 Location: ? [facility] ? Receive Date: ? 09/10/2005 Provider: ?ROXANNE TAVERAS MD Copy to: ? Specimen/Source: ?ThinPrep Pap Test, Cervix/Endocervix, processed on ARXPrep Imaging System, with manual evaluation Last Menstrual [...] Taveras MD PATHOLOGY ORDERABLES [facility] [address] [place] [address] documented in this encounter Visit Diagnoses Not on filedocumented in this encounter
--- OUTSIDE RECORDS SUMMARY | 2023-12-22 14:51 | XMS_ITS | Referral Summary ---
Author Organization [facility] Address [address] [place] [address] Care Team Providers Care Laboratory Helper Name Role Phone Roxanne Taveras MD Primary Care Provider Social History Tobacco Use Types Packs/Day Years Used Date Smoking Tobacco: Never Assessed Sex and Gender Information Value Date Recorded Sex Assigned at Not on file Gender Identity Not on file Sexual Orientation Not on file Plan of Treatment Not on file Radha Hernandez Personal/Famil y Self 1975 [address] [address] Radha Hernandez Personal/Famil y Self 1975 [address] [address] Radha Hernandez Personal/Famil y Self 1975 [address] [address] Radha Hernandez Personal/Famil y Self [address] [place] [address] [place] [address] Care Teams Laboratory Helper Relationship Specialty Start Date End Date Roxanne Taveras MD [address] [place], [place] [address] PCP - General 10/26/11
--- OUTSIDE RECORDS SUMMARY | 2023-12-22 14:51 | XMS_ITS | Encounter Summary ---
Author Organization [facility] Address [address] [place] [address] Care Team Providers Care Sports Anchor Name Role Phone Roxanne Taveras MD Primary Care Provider [phone] Encounter Details Date Type Department Care Team (Late st Contact Info) Description 07/14/2013 Results Only [facility] Laboratory Services - [facility] ([facility]) [address] [place] [address] Tiffanie Martin PA-C [address] [place] [address] Social History Tobacco Use Types Packs/Day Years [...] ? YANCY RADHA ? Accession #: ? [id number] : ? 1975 (Age: 38) ??F ?Collect [...] 07/14/2013 07/15/2013 Tiffanie Martin PA-C PATHOLOGY ORDERA [facility] [address] [place] [address] documented in this encounter Visit Diagnoses Not on filedocumented in this encounter Care Teams Sports Anchor Relationship Specialty Start Date End Date Roxanne Taveras MD [address] [place] [address] PCP - General 10/26/11 documented as of this encounter
--- OUTSIDE RECORDS SUMMARY | 2023-12-22 14:51 | XMS_ITS | Encounter Summary ---
Author Organization [facility] Address [address] [place] [address] Care Team Providers Care Upholstered Goods Crafter Name Role Phone Unknown, Provider Primary Care Provider Unava ilable Encounter Details Date Type Department Care Team (Late st Contact Info) Description 10/23/2011 Results Only [facility] Laboratory Services - [facility] ([facility] [place] [address] [place], [place] [address] Roxanne Taveras MD [address] [place] [address] Social History Tobacco Use Types [...] ? STEWRADHA Snyder ? Accession #: ? [id number] ? : ? 1975 (Age: 36) ??F [...] moderate amount of cytoplasm. 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 ??(Dr. Baker)/frieda Document reviewed and electronically [...] Gross Description: ? Received in formalin labelled Stew Radha and L side of neck is a 0.9 x 0.7 x 0.6 cm ovoid, plummer-brown, granular, friable, focally hairbearing papule. ??The margin is inked. ??The specimen is trisected and entirely submitted in a single cassette. ??(Noemi Sorenson/ljn End of Report [facility] 10/23/2011 10/24/2011 9:2 3 EDT Roxanne Taveras MD PATHOLOGY ORDERABLES Performing Organization Address City/State/[facility] [[email or web address]] Co de Phone Number [facility] [address] [place] [address] documented in this encounter Visit Diagnoses Not on filedocumented in this encounter Care Teams Upholstered Goods Crafter Relationship Specialty Start Date End Date Unknown, Provider, PCP - General 10/24/11 10/25/11 documented as of this encounter
--- OUTSIDE RECORDS SUMMARY | 2023-12-22 14:51 | XMS_ITS | Encounter Summary ---
Author Organization [facility] Address [address] [place] [address] Care Team Providers Care Material Reclaimer Name Role Phone Roxanne Taveras MD Primary Care Provider [phone] Encounter Details Date Type Department Care Team (Latest Contact Info) Description 01/25/2022 Lab Requisition [facility] - Main [address] [id number] Boni Cervantes MD [address] [place] [phone] Dysphagia, pharyngoesophageal phase Social History Tobacco [...] management options, if applicable. 01/26/2022 9:32 EST [facility] Final Diagnosis A. DUODENUM, BIOPSY: - [...] mucosa with no diagnostic abnormality. 01/26/2022 9:32 [facility] Attestation By the signature below, the attending physician certifies that they have 1) personally conducted a gross and/or microscopic examination of the described specimen(s), and/or personally interpreted the results of laboratory testing of the described specimen(s), and 2) personally rendered or confirmed the above diagnosis. 01/26/2022 9:32 [facility] at 0932 Clinical History dysphagia with solid foods 01/26/2022 9:32 [facility] Gross Description A. The specimen is received in formalin labeled with ? Radha M. [place]? and ? A? and ? duodenum? are 4 mucosal fragments that range in size from 0.1 x 0.1 x 0.2 cm up to 0.1 x 0.2 x 0.3 cm. The specimen is entirely submitted in 1 cassette. B. The specimen is received in formalin labeled with ? Radha M. [place]? and ? B? and ? duodenal bulb? [...] in formalin labeled with ? Radha M. [place]? and ? E? and ? distal esophagus? [...] Ena Rogers 01/25/2022 11:36 01/26/2022 9:32 EST [facility] Performing Lab [facility] 01/26/2022 9:32 [facility] Scanned Images 01/26/2022 9:32 EST [facility] Tissue ENTIRE ESOPHAGUS / Unknown 01/24/2022 [...] EST Boni Cervantes MD PATHOLOGY ORD ERABLES [facility] [address] [place] [address] documented in this encounter Visit Diagnoses Diagnosis Dysphagia, pharyngoesophageal phase documented in this encounter Care Teams Material Reclaimer Relationship Specialty Start Date End Date Roxanne Taveras MD [address] [place] [address] PCP - General 10/26/11 documented as of this encounter
--- OUTSIDE RECORDS SUMMARY | 2023-12-22 14:51 | XMS_ITS | Encounter Summary ---
Author Organization [facility] Address [address] [place] [address] Care Team Providers Care Search Strategist Name Role Phone Unavailable Primary Care Provider Unavailabl e Encounter Details Date Type Department Care Team (Late st Contact Info) Description 09/25/2011 Results Only [facility] Services - [facility] ([facility] [address] [place], [place] [address] Gayathri Pineda, [facility] [address] [place] [address] Social History Tobacco Use Types Packs/Day [...] ? YANCYRADHA WILLIS ? Accession #: ? [id number] : ? 1975 (Age: 36) ??F ?Collect Date: ? 09/25/2011 Location: ? [facility] ? Receive Date: ? 09/26/2011 Provider: ?GAYATHRI PINEDA [employer] Copy to: ? Specimen/Source: ?Pap Test, Cervix/Endocervix, [...] Report [facility] 09/25/2011 09/26/2011 Gayathri Pineda [employer] PATHOLOGY ORDERABLES [facility] [address] [place] [address] documented in this encounter Visit Diagnoses Not on filedocumented in this encounter
--- OUTSIDE RECORDS SUMMARY | 2023-12-22 14:51 | XMS_ITS | Encounter Summary ---
Author Organization [facility] Address [address] [place] [address] Care Team Providers Care Copy Center Specialist Name Role Phone Roxanne Taveras MD Primary Care Provider [phone] Encounter Details Date Type Department Care Team (Late st Contact Info) Description 11/29/2014 Results Only [facility] [phone] Tiffanie Martin PA-C [address] [place] [phone] Social History Tobacco Use Types Packs/Day Years [...] ? RADHA MATHIAS ? Accession #: ? [id number] : ? 1975 (Age: 39) ??F ?Collect [...] ??12/06/2014 10:24 End of Report [facility] 11/29/2014 12/01/2014 Tiffanie Martin PA-C PATHOLOGY ORDERA [facility] [address] [place] [address] documented in this encounter Visit Diagnoses Not on filedocumented in this encounter Care Teams Copy Center Specialist Relationship Specialty Start Date End Date Roxanne Taveras MD [address] [place] [address] PCP - General 10/26/11 documented as of this encounter
--- OUTSIDE RECORDS SUMMARY | 2023-12-22 14:51 | XMS_ITS | Encounter Summary ---
Author Organization [facility] Address [address] [place] [address] Care Team Providers Care Plaster Machine Operator Name Role Phone Roxanne Taveras MD Primary Care Provider [phone] Encounter Details Date Type Department Care Team (Late st Contact Info) Description 11/06/2021 Lab Requisition [facility] Pathology & Laboratory Medicine - [address] [address] Nelly Mendez MD [address] [place] [address] [place] [address] Encounter for other general examination [...] types, PCR Negative Negative 11/13/2021 15:19 EDT [facility] Comment:No E6 or E7 mRNA is detected from HPV types 16,18,31,33,35,39,45,51,52,56,58,59,66, and 68 by roofing apprentice mediated amplification. Papanicolaou smear specimen (specimen) CERVIX UTERI STRUCTURE / Unknown 11/06/2021 10:50 EDT 11/10/2021 11:00 EDT Nelly Mendez MD MICROBIOLOGY - GENER AL ORDERABLES [facility] [address] [place] [address] * PAP TEST (11/06/2021 10:50 EDT) Specimens A. Cervix and/or Endocervix , ThinPrep Imaging System with Manual Evaluation 11/13/2021 15:19 [facility] Specimen Adequacy Satisfactory for Evaluation - transformation zone component present 11/13/2021 15:19 [facility] General Categorization Negative for intraepithelial lesion or malignancy 11/13/2021 15:19 [facility] Attestation . 11/13/2021 15:19 [facility] at 1519 Clinical History See below 11/14/19 15:19 [facility] HPV The result for the Human Papillomavirus (HPV) Detection-High Risk Types is Negative. No E6 or E7 mRNA is detected from HPV types 16,18,31,33,35,39 ,45,51,52,56,58,5 9,66, and 68 by roofing apprentice mediated amplification.Regine ting was performed on specimen [id number] and was resulted on 11/13/2021 1517 EDT by LISET, LAB INSTRUMENT RESULTS IN 11/13/2021 15:19 [facility] Performing Lab [facility] 11/13/2021 15:19 [facility] Scanned Images 11/13/2021 15:19 [facility] Papanicolaou smear specimen (specimen) CERVIX UTERI STRUCTURE / Unknown 11/06/2021 10:50 EDT 11/07/2021 12:50 EDT Nelly Mendez MD PATHOLOGY ORDERABLES Performing Organization Address City/[facility]/ZIP Co de Phone Number [facility] [address] [place] [address] * CHLAMYDIA/N. GONORRHOEAE AMPLIFIED RNA, THINPREP (11/06/2021 10:50 EDT) Neisseria gonorrhoeae Result Negative Negative 11/07/2021 14:45 EDT [facility] Chlamydia trachomatis Result Negative Negative 11/07/2021 14:45 EDT [facility] Papanicolaou smear specimen (specimen) CERVIX UTERI STRUCTURE / Unknown 11/06/2021 10:50 EDT 11/07/2021 8:39 EDT Nelly Mendez MD MICROBIOLOGY - GENER AL ORDERABLES Performing Organization Address City/[facility]/ZIP Co de Phone Number [facility] [address] [place] [address] documented in this encounter Visit Diagnoses Diagnosis Encounter for other general examination documented in this encounter Care Teams Plaster Machine Operator Relationship Specialty Start Date End Date Roxanne Taveras MD [address] [place] [address] PCP - General 10/26/11 documented as of this encounter
--- OUTSIDE RECORDS SUMMARY | 2023-12-22 14:51 | XMS_ITS | Clinical Summary ---
Author Organization [facility] Address [address] [place] [address] Care Team Providers Care Trapper Animal Name Role Phone Roxanne Taveras MD Primary Care Provider [phone] Social History Tobacco Use Types Packs/Day Years [...] Radha Hernandez Personal/Famil y Self [id number] [place] [address] Radha Hernandez Personal/Famil y Self 1975 [address] [place] [address] Radha Hernandez Personal/Famil y Self 1975 [address] [place] [address] Care Teams Trapper Animal Relationship Specialty Start Date End Date Roxanne Taveras MD [address] [place] [address] PCP - General 10/26/11
--- NOTE | 2023-12-22 14:52 | W.PC.ACHO ---
Registration Status: Primary Language: Preferred Language: ED Information & Data Chief Complaint SOB 12/22/23 10:07 Chief Complaint SOB 12/22/23 09:45 Triage Note Patient with RAD presents 12/22/23 09:45 this morning with severe sob . Productive cough. no fever or chills. Medical / Surgical History (Last Reviewed 11/30/21 @ 10:50 by DELBERT Hicks) Presence of 52 mg levonorgestrel-releasing intrauterine device (IUD) Suppurative hidradenitis (12/08/14) Asthma Cervical radiculitis Stenosis, cervical spine Hx of abscess of breast DJD (degenerative joint disease) of cervical spine (Last Reviewed 11/30/21 @ 10:50 by DELBERT Hicks) Status post incision and drainage Most Recent Vital Signs Temperature 36.6 C 12/22/23 12:48 Temperature Source Temporal Artery Scan 12/22/23 12:48 Pulse 89 12/22/23 12:48 Pulse 85 12/22/23 12:30 Respiratory Rate 18 12/22/23 12:48 Respiratory Effort Short of Breath, Labored, Accessory Muscle Use, Pursed Lip 12/22/23 10:07 Respiratory Depth Normal 12/22/23 10:07 Respiratory Pattern Irregular 12/22/23 10:07 Blood Pressure 166/95 H 12/22/23 10:15 Blood Pressure Mean 121 12/22/23 10:15 Blood Pressure Position Sitting 12/22/23 09:45 Pulse Oximetry 91 L 12/22/23 12:48 Oxygen Delivery Method Nasal Cannula 12/22/23 12:48 Oxygen Flow Rate 1 12/22/23 12:48 Pain Level 2 12/22/23 14:43 Comment when coughing 12/22/23 12:48 Allergies nicotine (From Nicoderm CQ) Adverse Reaction (Intermediate, Unverified 12/22/23 09:50) Nightmares Allergen is Nicotine Patch Precautions Isolation PUI 12/22/23 10:07 Active Medications Generic Name Dose Route Start Last Admin Trade Name Freq PRN Reason Stop Dose Admin Sodium Chloride 0 ml 12/22/23 09:45 12/22/23 10:07 Normal Saline Flush 10 Ml Syr IVP 10 ml PRN PRN Administration IV IV Catheter Type [Right Saline Lock Antecubital] IV Catheter Gauge [Right 20 Antecubital] Diet Orders Category Date Time Status Regular/Normal [DIET] Nutrition 12/22/23 Dinner Active Diagnostics 12/22/23 12/22/23 Range/Units 10:05 10:00 WBC 14.83 H (4.4-10.8) 10^3/uL RBC 5.29 H (3.93-5.22) 10^6/uL Hgb 15.5 (11.2-15.7) g/dL Hct 47.0 H (36.0-46.0) % MCV 89 (80-95) fL MCH 29.3 (27.0-33.0) pg MCHC 33.0 (32.0-36.0) % RDW 13.7 (11.7-14.6) % Plt Count 455 H (130-400) 10^3/uL MPV 8.8 (8.0-11.0) fL Immature Gran % 0.7 % Neutrophils % 69.9 % Lymphocytes % 19.7 % Monocytes % 6.3 % Eosinophils % 2.9 % Basophils % 0.5 % Nucleated RBC % 0.0 (0.0-0.3) % Absolute Neutrophils 10.37 H (1.2-6.7) 10^3/uL Absolute Lymphocytes 2.92 (1.2-3.4) 10^3/uL Absolute Monocytes 0.93 H (0.1-0.8) 10^3/uL Absolute Eosinophils 0.43 (0.0-0.7) 10^3/uL Absolute Basophils 0.07 (0.0-0.2) 10^3/uL VBG pH 7.41 (7.31-7.41) VBG pCO2 46 (41-51) mmHg VBG pO2 55 mmHg VBG HCO3 29 H (23-28) mmol/L VBG Total CO2 26 (24-29) mmol/L VBG O2 Saturation 90 % VBG Base Excess 5 H (-2-3) mmol/L Sodium 141 (136-145) mmol/L Potassium 3.6 (3.5-5.1) mmol/L Chloride 103 (98-107) mmol/L Carbon Dioxide 29.6 (21.0-32.0) mmol/L Anion Gap 8.4 (3-11) mmol/L BUN 9 (7-18) mg/dL Creatinine 0.9 (0.55-1.02) mg/dL Est GFR (CKD-EPI 2020) 78.37 (mL/min/1.73m2) Glucose 96 (74-106) mg/dL Calcium 8.9 (8.5-10.1) mg/dL Magnesium 2.2 (1.8-2.4) mg/dL Total Bilirubin 0.58 (0.2-1.0) mg/dL AST 34 (15-37) U/L ALT 35 (14-59) U/L Alkaline Phosphatase 118 H (46-116) U/L NT-Pro-B Natriuret Pep 129 (<300) pg/mL Total Protein 8.2 (6.4-8.2) g/dL Albumin 3.6 (3.4-5.0) g/dL COVID-19 Source Nasopharynx SARS-CoV-2 (PCR) Negative (Negative) Influenza Type A (PCR) Negative (Negative) Influenza Type B (PCR) Negative (Negative) RSV (PCR) Negative (Negative) Intake and Output - 24 Hour Total 12/22/23 09:39 thru 12/22/23 10:39 Intake Total 60 Balance 60 Weight 102.058 kg Intake: IV 60 Falls Risk Assessment History of Falls No History 12/22/23 10:07 Contributing Factors No Factors 12/22/23 10:07 Ambulatory Aids Independent 12/22/23 10:07 Tubes/Lines None 12/22/23 10:07 Gait Evaluation No gait disturbance 12/22/23 10:07 Cognition No cognitive impairment 12/22/23 10:07 Fall Total Score 0 12/22/23 10:07 Level of Risk Standard/Low Risk 12/22/23 10:07 v v v v v v v v v Sending and/or Receiving Nurses: Please use comment section below to note any information pertinent to the patient hand-off not included above. Information / Comments: PT arrives form ED to 206 via after presenting to ED for increasing SOB. Report received from: Maryjane Banda RN
--- NOTE | 2023-12-22 15:38 | HPE_ITS ---
Date of service: 12/22/23 Time of Service: 15:38 Assessment and Plan Assessment and plan (1) Exacerbation of RAD (reactive airway disease): Status: Acute Assessment and plan: Likely secondary to viral illness. She does not appear to have bacterial pneumonia. She is not diagnosed with COPD despite a 14-[id number]-[id number] history. PFTs as an outpatient would be recommended. Right now she is currently on as needed albuterol to control her symptoms. (2) Rib pain on left side: Status: Acute Assessment and plan: Left-sided rib pain from excessive coughing. Films from last week show no fracture. As needed analgesics. (3) Hypertension: Status: Chronic Assessment and plan: Hypertensive on admission. She is not currently on antihypertensive medicines. Will check a few more blood pressures while she is in the hospital and consider starting her on antihypertensive medication prior to discharge if warranted. (4) Smoker: Status: Acute Assessment and plan: Nearly 28-year pack year history of smoking. Would clearly benefit from smoking cessation. Respiratory therapy to be weaning method or to discuss. History of Present Illness History of Present Illness Chief Complaint: Acute dyspnea/hypoxia Narrative: 48-year-old female presents with sudden onset of shortness of breath. Over the last week or so she developed pain a viral upper respiratory infection. Was seen in the ED about a week ago because she coughed so hard her ribs hurt. Rib films at this time did not show fracture. It was presumed she had a strain. This morning she woke up and really developed severe shortness of breath. She used metered-dose inhaler and 1 when he came and was out of albuterol. In the emergency room she received updrafts and oral steroids. She was started on doxycycline. She continued to run low sats and desatted to 84% with ambulation. She is admitted for observation. Review of Systems Narrative: As per HPI. She is generally healthy and well. She smoked for 20 years. She has chronic cough associated with that. She has never been diagnosed with COPD. She has been diagnosed with mild reactive airway disease. She has been on albuterol for a number of years. [facility] All Active Problems Exacerbation of RAD (reactive airway disease) (Acute) Rib pain on left side (Acute) Hypertension (Chronic) Smoker (Acute) Medical History (Updated 12/22/23 @ 15:42 by Bam Collins MD) Periarthritis of shoulder GERD (gastroesophageal reflux disease) Hirsutism Hyperlipidemia Pelvic pain Dental abscess Neck pain Obesity Hypothyroidism Cough Mild intermittent reactive airway disease Presence of 52 mg levonorgestrel-releasing intrauterine device (IUD) Mirena removed and replaced 06/06/17 Suppurative hidradenitis (12/08/14) Asthma Geographical. [place] no problem. Cervical radiculitis Stenosis, cervical spine lue neuropathy Hx of abscess of breast DJD (degenerative joint disease) of cervical spine Surgical History Status post incision and drainage breast abscess 10/23/17 Family History Mother Heart disease Hyperlipidemia Hypertension Age related osteoporosis Father Heart disease Hyperlipidemia Aneurysm Grandfather Personal history of malignant neoplasm colon Maternal Aunt Personal history of malignant neoplasm breast Sister No problems noted. Maternal Grandfather , 44 Cancer Paternal Grandfather , 59 Cancer Maternal Grandmother , 93 Cancer Paternal Grandmother , 69 Cancer Heart disease Hyperlipidemia Hypertension Social History (Updated 06/21/22 @ 16:27 by Morena Benton) Smoking/Tobacco Use Status: Current every day Tobacco Type: cigarettes Tobacco: How many years used: 28 Second Hand Exposure: Yes Smoking risk assessment performed?: Yes Alcohol Intake: never Drug use: Daily Substance use type: marijuana Caregiver/Support person: No Household members: significant other and children Housing: apartment Communication Needs: None Do you need help understanding health information?: Never Pets and animals: Yes Pets and animals: cat(s) and hamster(s) Sexually active: Yes Do you think of yourself as: straight/heterosexual Current gender identity: female What is your relationship status?: living with partner How often do you talk on the phone with friends or family?: never How often do you get together with friends or relatives?: never Do you belong to any clubs or organized social groups?: no Panel score (0-1 are the most socially isolated patients): 1 What type of physical activity do you participate in: none Sharri/Shinto: No preference Special sharri needs: No Seatbelt use: always Helmet use: No Drive 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 Date GA/Weeks # Preg Succ Route Wgt Sex Labor Lgth Anesth esia Location Prov Complic 01/29/06 vaginal 2721.554 g Female Meds Allergies and Home Medications Allergies Allergy/AdvReac Type Severity Reaction Status Date / Time nicotine (From Nicoderm ) AdvReac Intermediate Nightmares Unverified 12/22/23 09:50 Home Medications ?Medication ?Instructions ?Recorded ?Confirmed ?Type levonorgestrel 21 mcg/24 hr (up to 1 ea intrauterine ONCE #1 implant 12/27/14 12/22/23 History 8 years) 52 mg intrauterine device (Mirena) albuterol sulfate 90 mcg/actuation 2 puff inhalation Q6H PRN 01/28/23 12/22/23 Rx aerosol inhaler (Proventil HFA) shortness of breath or wheezing #8.5 grams lidocaine 5 % topical patch 1 patch topical DAILY #15 ea 12/17/23 12/22/23 Rx albuterol sulfate 90 mcg/actuation 2 puff inhalation QID PRN #6.7 12/22/23 Rx aerosol inhaler grams doxycycline hyclate 100 mg capsule 100 mg PO BID 5 days #10 caps 12/22/23 Rx prednisone 20 mg tablet 40 mg (2 x 20 mg) PO DAILY 4 days 12/22/23 Rx #8 tabs Exam Narrative Exam Narrative: On exam she is pleasant and in no apparent distress. She has no significant coughing or wheezing audible from the bedside. Her posterior lung exam notable for some scattered rhonchi. There was him to have Rales in the left upper lung field that cleared with deep inspiration. Heart sounds were strong and regular no murmur appreciated. Abdomen quite markedly obese but overall nontender to palpation in all 4 quadrants. The lower extremities showed no evidence of edema and appear well-perfused. Neurologically moves all extremities with no apparent decrement in function. Results Imaging Chest x-ray: report reviewed and image reviewed (neg) EKG: report reviewed and image reviewed (Sinus at 90 bpm) Labs 12/22/23 10:00 12/22/23 10:00 Labs: Laboratory Results - last 24 hr 12/22/23 12/22/23 10:00 10:05 WBC 14.83 H RBC 5.29 H Hgb 15.5 Hct 47.0 H MCV 89 MCH 29.3 MCHC 33.0 RDW 13.7 Plt Count 455 H MPV 8.8 Immature Gran % 0.7 Neutrophils % 69.9 Lymphocytes % 19.7 Monocytes % 6.3 Eosinophils % 2.9 Basophils % 0.5 Nucleated RBC % 0.0 Absolute Neutrophils 10.37 H Absolute Lymphocytes 2.92 Absolute Monocytes 0.93 H Absolute Eosinophils 0.43 Absolute Basophils 0.07 VBG pH 7.41 VBG pCO2 46 VBG pO2 55 VBG HCO3 29 H VBG Total CO2 26 VBG O2 Saturation 90 VBG Base Excess 5 H Sodium 141 Potassium 3.6 Chloride 103 Carbon Dioxide 29.6 Anion Gap 8.4 BUN 9 Creatinine 0.9 Est GFR (CKD-EPI 2020) 78.37 Glucose 96 Calcium 8.9 Magnesium 2.2 Total Bilirubin 0.58 AST 34 ALT 35 Alkaline Phosphatase 118 H NT-Pro-B Natriuret Pep 129 Total Protein 8.2 Albumin 3.6 COVID-19 Source Nasopharynx SARS-CoV-2 (PCR) Negative Influenza Type A (PCR) Negative Influenza Type B (PCR) Negative RSV (PCR) Negative Last Vital Signs Temp 36.2 C L 12/22/23 15:22 Pulse 76 12/22/23 15:22 Resp 19 12/22/23 15:22 BP 153/69 H 12/22/23 15:22 Pulse Ox 96 12/22/23 15:22 Time Spent Time spent with Patient: <40 minutes Time was spent: preparing to see the patient(eg.review tests), obtaining and/or reviewing separately otained hiistory, ordering medications,tests, procedures, referring, communicating with other health physician assistant primary care, indepentently interpreting results, counseling the patient and care coordination
[2023-12-22 16:21] LABS: Lab Add On Test DONE
[2023-12-22 16:48] LABS: D-Dimer 1868 ng/mlFEU (<500)
[2023-12-22] MEDS: Albuterol 2.5 MG/3 ML INH SOLN VIAL UPD ×2 (19:58→23:31)
[2023-12-23] MEDS: Albuterol 2.5 MG/3 ML INH SOLN VIAL UPD ×3 (03:09→11:08)
[2023-12-23 06:48] LABS: HCT 43.4 % (36.0-46.0); HGB 14.2 g/dL (11.2-15.7); MCH 28.9 pg (27.0-33.0); MCHC 32.7 % (32.0-36.0); MCV 88 fL (80-95); MPV 9.1 fL (8.0-11.0); Platelet Count 476 10^3/uL (130-400); RBC 4.92 10^6/uL (3.93-5.22); RDW 13.9 % (11.7-14.6); RDW-SD 45.5 fL; WBC 17.74 10^3/uL (4.4-10.8)
[2023-12-23 06:53] LABS: Anion Gap 7.7 mmol/L (3-11); BUN 10 mg/dL (7-18); CO2 30.3 mmol/L (21.0-32.0); CREATININE 0.9 mg/dL (0.55-1.02); Calcium 9.4 mg/dL (8.5-10.1); Chloride 103 mmol/L (98-107); Estimated GFR 78.37 (mL/min/1.73m2); Glucose 135 mg/dL (74-106); Magnesium 2.5 mg/dL (1.8-2.4); Potassium 3.5 mmol/L (3.5-5.1); Sodium 141 mmol/L (136-145)
[2023-12-23 07:16] VITALS: BP 165/89; PULSE 91; RESP 16; TEMP 36.5; O2SAT 96
[2023-12-23 07:56] LABS: Absolute Neutrophil Count 15.26 10^3/uL (1.2-6.7); Bands % 1 %; Diff Comment Manual Differential; RBC Morphology Normal
[2023-12-23 07:57] LABS: Absolute Lymphocyte Count 1.95 10^3/uL (1.2-3.4); Absolute Monocyte Count 0.53 10^3/uL (0.1-0.8); Atypical Lymphocytes % 2 %
[2023-12-23 08:14] VITALS: PULSE 83; RESP 16; RESP 8; O2SAT 92
[2023-12-23 08:15] VITALS: O2SAT 92
--- NOTE | 2023-12-23 08:39 | PDOC.CMIN ---
Date of service: 12/23/23 Time of Service: 08:39 Care Management Initial Assmt Initial Assessment Reason for Hospitalization: Acute dyspnea/hypoxia Functional Status/Living Situation Patient Presentation: Sitting up in bed, eager to discharge and get back to work. Town of Residence: [facility] Resides with: Other (S/O Jonas White) Employment Status: Employed ([employer]) Instrumental Activities of Daily Living (ADLs): Independent Medications Medication Management: No Issues/Barriers identified Physical Functioning/Mobility Assistive Device: None Advance Directives Advance Directives: Do you have an Advance Directive: N 10/24/17 14:22 AD On File at [facility]: N 10/24/17 14:22 Date Asked 12/17/23 12/17/23 08:42 AD Date Reviewed COLST On File at [facility] COLST Date Scanned Code Status Resuscitation Status Full Code Insurance Coverage/Financial Issues Insurance: Medicaid Financial Issues: Radha is behind on her rent and working to get caught up. She is aware of community resources such as [facility]. Care Team Visit Care Team Role Provider Type None None Primary Care Provider NON-[facility] STAFF PHYSICIAN Ally Centeno MD Emergency Provider [facility] STAFF PHYSICIAN Bam Collins MD Admit Provider [facility] STAFF PHYSICIAN Attending Provider Discharge Potential Discharge Needs: PCP F/U Appt Anticipated Barriers to Discharge: Medical Status Patient/Family Education Needs: Review discharge instructions, discuss Ask Me Three Transportation: Private vehicle Plan: Discharge home via private vehicle with significant other. Follow up with PCP and discharge plan of care as instructed. Hospital follow up will be at [facility], per pt she has not established care with [facility]. No new services are ordered prior to this discharge. [facility] All Active Problems Exacerbation of RAD (reactive airway disease) (Acute) Rib pain on left side (Acute) Hypertension (Chronic) Smoker (Acute) Medical History (Updated 12/22/23 @ 15:42 by Bam Collins MD) Periarthritis of shoulder GERD (gastroesophageal reflux disease) Hirsutism Hyperlipidemia Pelvic pain Dental abscess Neck pain Obesity Hypothyroidism Cough Mild intermittent reactive airway disease Presence of 52 mg levonorgestrel-releasing intrauterine device (IUD) Mirena removed and replaced 06/06/17 Suppurative hidradenitis (12/08/14) Asthma Geographical. [place] no problem. Cervical radiculitis Stenosis, cervical spine lue neuropathy Hx of abscess of breast DJD (degenerative joint disease) of cervical spine Surgical History Status post incision and drainage breast abscess 10/23/17 Family History Mother Heart disease Hyperlipidemia Hypertension Age related osteoporosis Father Heart disease Hyperlipidemia Aneurysm Grandfather Personal history of malignant neoplasm colon Maternal Aunt Personal history of malignant neoplasm breast Sister No problems noted. Maternal Grandfather , 44 Cancer Paternal Grandfather , 59 Cancer Maternal Grandmother , 93 Cancer Paternal Grandmother , 69 Cancer Heart disease Hyperlipidemia Hypertension Social History (Updated 06/21/22 @ 16:27 by Morena Benton) Smoking/Tobacco Use Status: Current every day Tobacco Type: cigarettes Tobacco: How many years used: 28 Second Hand Exposure: Yes Smoking risk assessment performed?: Yes Alcohol Intake: never Drug use: Daily Substance use type: marijuana Caregiver/Support person: No Household members: significant other and children Housing: apartment Communication Needs: None Do you need help understanding health information?: Never Pets and animals: Yes Pets and animals: cat(s) and hamster(s) Sexually active: Yes Do you think of yourself as: straight/heterosexual Current gender identity: female What is your relationship status?: living with partner How often do you talk on the phone with friends or family?: never How often do you get together with friends or relatives?: never Do you belong to any clubs or organized social groups?: no Panel score (0-1 are the most socially isolated patients): 1 What type of physical activity do you participate in: none Sharri/Orthodoxy: No preference Special sharri needs: No Seatbelt use: always Helmet use: No 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 Date GA/Weeks # Preg Succ Route Wgt Sex Labor Lgth Anesthesia Location Prov Complic 01/29/06 vaginal 2721.554 g Female SDOH(Care Management) Screening Will the Patient Participate in the Screening?: Yes Do you worry about having a steady place to live?: no Problems where you live: no known problems In the past 12 months, have you had to go without electric, gas, oil or water in your home?: no Have you or anyone in your house had to go without enough food to eat?: no Has lack of transportation kept you from medical appointments or from doing things needed for daily living?: no Has anyone in your support network made you feel unsafe for any reason?: no
[2023-12-23] MEDS: predniSONE 20 MG TAB 40 MG PO (09:06)
[2023-12-23] MEDS: Normal Saline Flush 10 ML SYR IVP (09:07)
[2023-12-23 11:05] VITALS: O2SAT 93
[2023-12-23 11:08] VITALS: PULSE 83; RESP 16; RESP 6; O2SAT 93
--- NOTE | 2023-12-23 11:30 | CMDISCH_ITS ---
Date of service: 12/23/23 Time of Service: 11:30 LACE Index Scoring Tool Questions: Length of Stay (in days): 1 Was the patient admitted via the E.D.?: Yes E.D. Visits: 2 Answers: Total Score: 6 Risk of Readmission: Low Risk Care Management Discharge Plan Reason for Hospitalization: Hypoxia/Reactive Airway Disease Discharge Plan: Discharge home via private vehicle with significant other. Follow up with PCP and discharge plan of care as instructed. Hospital follow up will be at [facility], per pt she has not established care with [facility]. No new services are ordered prior to this discharge. Patient/Family Education Needs: Review discharge instructions, limitations, medications and plan to follow up with community providers. Discuss ask me three. [facility] Health Related Social Needs: No Data to Display
--- NOTE | 2023-12-23 12:35 | NUR.NOTE ---
Documentation reviewed with [employer] student, Cheryl Griffith. Agree with documentation. Flor Preston, MSN, RNC-OB
--- NOTE | 2023-12-23 13:47 | DSE_ITS ---
Date of service: 12/23/23 Time of Service: 13:47 DS: Diagnosis Discharge Diagnosis (1) Exacerbation of RAD (reactive airway disease): Status: Acute (2) Rib pain on left side: Status: Acute (3) Hypertension: Status: Chronic (4) Smoker: Status: Acute Discharge Plan Disposition Patient Disposition: Home Condition: Good Discharge Details Reason For Visit: Hypoxia/reactive airway disease Admit Date/Time: 12/22/23 13:02 Admit Provider: Bam Collins Attending Provider: Bam Collins Primary Care Provider: None,None Hospital Course Hospital Course: Patient initially presented with shortness of breath and signs and symptoms that were consistent with an acute exacerbation of reactive airway disease, though high suspicion for COPD as patient has [id number]-trnh history but has not had pulmonary function test. It will be recommended that patient follow-up with pulmonology and have PFTs as an outpatient. She was treated with initially with IV steroids that were transitioned to p.o. prednisone and nebulizer treatments and has significant improvement of her acute hypoxic respiratory failure and shortness of breath. Given patient's overall improvement it was determined that she was stable for discharge home and will continue on short burst of prednisone for an additional 5 days. Home Meds and New Rx's Prescriptions: New prednisone 20 mg tablet 40 mg PO DAILY 4 Days Qty: 8 0RF doxycycline hyclate 100 mg capsule 100 mg PO BID 5 Days Qty: 10 0RF albuterol sulfate 90 mcg/actuation HFA aerosol inhaler 2 puff inhalation QID PRNQty: 6.7 0RF prednisone 20 mg Tablet 40 mg PO DAILY 5 Days Qty: 10 0RF Continued Mirena 1 EACH intrauterine device 1 ea Intrauterine ONCE Qty: 1 Patient Comments: in place. To be switched out in 2022 albuterol sulfate [Proventil HFA] 90 mcg/actuation HFA aerosol inhaler 2 puff inhalation Q6H PRN (Reason: shortness of breath or wheezing) Qty: 8.5 3RF lidocaine 5 % adhesive patch,medicated 1 patch topical DAILY Qty: 15 0RF Rx Instructions: leave on most painful area for up to 12 hrs Discharge Instructions Instructions: Exacerbation of COPD (DC) Additional Instructions: You were seen in the emergency department today for evaluation of shortness of breath. In our department a full physical examination performed, had laboratory studies that were reassuring, and received medications to improve your breathing. You likely had an exacerbation of your reactive airway disease, which could be asthma or COPD. You need to call your primary care provider in the morning and schedule an appointment for reevaluation. I have provided you with a prescription for an albuterol inhaler as well as steroids, which you should start taking tomorrow. The dose of steroids we gave you in the emergency department today last for 24 hours. You also need to start a course of antibiotics. Please take all of this medication until it is gone, even if you start to feel better. If you have worsening of your breathing, chest pain, loss of consciousness, or any other concerns you should return to the emergency department immediately. Thank you for allowing us to be part of your care. Stand Alone Forms: Work Release Referrals: Roxanne Slater PA [[employer] EQUIPMENT MECHANIC SUPERVISOR] - (RAD with hospitalized exacerbation. 28pack yr smoker, never had PFTs) Activity:: Activity as Tolerated Equipment/Supplies:: No Equipment Needed Diet:: As Tolerated Discharge Orders Discharge Orders: Discharge Order (Routine); Ordered 12/23/23 Ordered By: Abdirahman Gates DS: Summary Time Spent with Patient providing and/or coordinating discharge services: Greater than 30 minutes Status at Discharge Functional status at discharge: independent ambulation Overall status at discharge: patient is back to baseline Mental Status: mental status grossly normal Speech and Movement: speech and movement normal Mood: congruent mood Affect: normal affect Quality:SDOH Health Related Social Needs: No Data to Display Exam Narrative Exam Narrative: Well-appearing female sitting up at the edge of the bed in no acute distress, ANO x 4, heart regular rhythm, lungs clear to auscultation bilaterally with the exception of some mild diffuse coarse upper airway breath sounds with overall good air movement, abdomen soft, nontender, nondistended Psych Mental Status: mental status grossly normal Speech and Movement: speech and movement normal Mood: congruent mood Affect: normal affect DS: Data Vitals/I&O Vitals and I&O: Vital Signs Temperature 97.7 F 12/23/23 07:16 Temperature Source Temporal Artery Scan 12/23/23 07:16 Pulse 83 12/23/23 11:08 Pulse Rhythm Regular 12/22/23 15:00 Pulse 85 12/22/23 12:30 Respiratory Rate 16 12/23/23 11:08 Respiratory Effort Incrsd Work of Breathing 12/22/23 15:00 Respiratory Depth Normal 12/22/23 15:00 Respiratory Pattern Normal 12/22/23 15:00 Blood Pressure 165/89 H 12/23/23 07:16 Blood Pressure Mean 121 12/22/23 10:15 Blood Pressure Position Sitting 12/22/23 09:45 Pulse Oximetry 93 12/23/23 11:08 Oxygen Delivery Method Room Air 12/23/23 11:05 Oxygen Flow Rate 0 12/23/23 11:05 Fraction of Inspired Oxygen (FIO2) 94 12/22/23 18:15 Pain Level 0 12/23/23 07:16 Comment WILL INFORM RN + STUDENT 12/23/23 07:16 Intake & Output 12/22/23 12/23/23 12/23/23 17:59 05:59 17:59 Intake Total 70 / 70 790 / 790 Balance 70 / 70 790 / 790 Weight 225 lb Intake: IV 70 / 70 Oral 790 / 790 Other: Urine Color Yellow Urine Appearance Clear Urine Odor None Comment pT stated they voided recently Data Completed and Pending Labs on day of discharge: Labs from last 24 hours 12/23/23 12/22/23 06:05 10:00 WBC 17.74 H RBC 4.92 Hgb 14.2 Hct 43.4 MCV 88 MCH 28.9 MCHC 32.7 RDW 13.9 Plt Count 476 H MPV 9.1 Immature Gran % See Differential Neutrophils % 85.0 Band Neutrophils % 1 Lymphocytes % 9.0 Atypical Lymphs % 2 Monocytes % 3.0 Eosinophils % 0.0 Basophils % 0.0 Nucleated RBC % 0.0 Absolute Neutrophils 15.26 H Absolute Lymphocytes 1.95 Absolute Monocytes 0.53 Absolute Eosinophils 0.00 Absolute Basophils 0.00 RBC Morphology Normal D-Dimer 1868 H Sodium 141 Potassium 3.5 Chloride 103 Carbon Dioxide 30.3 Anion Gap 7.7 BUN 10 Creatinine 0.9 Est GFR (CKD-EPI 2020) 78.37 Glucose 135 H Calcium 9.4 Magnesium 2.5 H Add-On Test Request DONE PFSH All Active Problems Exacerbation of RAD (reactive airway disease) (Acute) Rib pain on left side (Acute) Hypertension (Chronic) Smoker (Acute) Medical History (Updated 12/22/23 @ 15:42 by Bam Collins MD) Periarthritis of shoulder GERD (gastroesophageal reflux disease) Hirsutism Hyperlipidemia Pelvic pain Dental abscess Neck pain Obesity Hypothyroidism Cough Mild intermittent reactive airway disease Presence of 52 mg levonorgestrel-releasing intrauterine device (IUD) Mirena removed and replaced 06/06/17 Suppurative hidradenitis (12/08/14) Asthma Geographical. [place] no problem. Cervical radiculitis Stenosis, cervical spine lue neuropathy Hx of abscess of breast DJD (degenerative joint disease) of cervical spine Surgical History Status post incision and drainage breast abscess 10/23/17 Family History Mother Heart disease Hyperlipidemia Hypertension Age related osteoporosis Father Heart disease Hyperlipidemia Aneurysm Grandfather Personal history of malignant neoplasm colon Maternal Aunt Personal history of malignant neoplasm breast Sister No problems noted. Maternal Grandfather , 44 Cancer Paternal Grandfather , 59 Cancer Maternal Grandmother , 93 Cancer Paternal Grandmother , 69 Cancer Heart disease Hyperlipidemia Hypertension Social History (Updated 06/21/22 @ 16:27 by Morena Benton) Smoking/Tobacco Use Status: Current every day Tobacco Type: cigarettes Tobacco: How many years used: 28 Second Hand Exposure: Yes Smoking risk assessment performed?: Yes Alcohol Intake: never Drug use: Daily Substance use type: marijuana Caregiver/Support person: No Household members: significant other and children Housing: apartment Communication Needs: None Do you need help understanding health information?: Never Pets and animals: Yes Pets and animals: cat(s) and hamster(s) Sexually active: Yes Do you think of yourself as: straight/heterosexual Current gender identity: female What is your relationship status?: living with partner How often do you talk on the phone with friends or family?: never How often do you get together with friends or relatives?: never Do you belong to any clubs or organized social groups?: no Panel score (0-1 are the most socially isolated patients): 1 What type of physical activity do you participate in: none Sharri/Adventist: No preference Special sharri needs: No Seatbelt use: always Helmet use: No Drive intox or ride w/intox route delivery service driver: No Do you feel safe at home: Yes Do you feel safe in your relationship?: Yes Female Reproductive History Menstrual Age of Menarche: 10 Duration of menses: <3 days control method: progestin IUCD History History 1 Para 1 Hx # Term Pregnancies Multiple births Hx # Pregnancies Ectopic pregnancies AB induced Hx Number of Living Children 1 AB spontaneous Past Pregnancies Del. Date GA/Weeks # Preg Succ Route Wgt Sex Labor Lgth Anesth esia Location Prov Complic 01/29/06 vaginal 6 lb Female Time Spent with Patient Time Spent with Patient: <45 minutes Time was spent: preparing to see the patient(eg.review tests), obtaining and/or reviewing separately otained hiistory, ordering medications,tests, procedures, referring, communicating with other health home health care respiratory therapist, indepentently interpreting results, counseling the patient and care coordination
[2023-12-23] MEDS: Enoxaparin 40 MG/0.4 ML SYR SC (14:03)
== END 2023-12-23 14:38 | disposition home or self-care (01) ==
LOC: ER 12:53 → MS 14:50
PROVIDERS: Admitting Provider Family Medicine; Emergency Provider Emergency Medicine; Visit Provider Family Medicine
DX: J45.21 Mild intermittent asthma with (acute) exacerbation (principal); R07.81 Pleurodynia; F17.210 Nicotine dependence, cigarettes, uncomplicated; I10 Essential (primary) hypertension; K21.9 Gastro-esophageal reflux disease without esophagitis; E78.5 Hyperlipidemia, unspecified; E66.9 Obesity, unspecified; Z68.33 Body mass index [BMI] 33.0-33.9, adult; E03.9 Hypothyroidism, unspecified; M48.02 Spinal stenosis, cervical region; Z79.899 Other long term (current) drug therapy; Z97.5 Presence of (intrauterine) contraceptive device
CPT/HCPCS: 00123; 36415; 80048; 80053; 82805; 87637; 93005; 94640; 96365; 96372; 96375; 99285; J1650; 71046; 83735; 83880; 85025; 85379; 93010; 94667; 94760; 99222; 99239; G0378; J2919; J3475; J7512; J7613; J7620

== ENCOUNTER 2024-01-01 13:11 | Outpatient (REF) | payer MEDICAID, SELFPAY ==
--- OUTSIDE RECORDS SUMMARY | 2024-01-01 13:13 | XMS_ITS | Clinical Summary ---
Author Organization [facility] Address [address] [place] [address] Care Team Providers Care Rate Clerk Passenger Name Role Phone Roxanne Taveras MD Primary Care Provider [phone] Social History Tobacco Use Types Packs/Day Years Used Date Smoking Tobacco: Never Assessed Comments Unknown Sex and Gender Information Value Date Recorded Sex Assigned at Not on file Legal Sex Female 18:11 EST Gender Identity Not on file Sexual Orientation Not on file Plan of Treatment Health Maintenance Due Date Last Done Comments Hepatitis C Screen 1975 Hepatitis B Vaccine (1 of 3 - 19+ 3-dose series) 05/01 COVID-19 Vaccine ( season) 20[address] [place] [address] MEDICAID [place] Care Teams Rate Clerk Passenger Relationship Specialty Start Date End Date Roxanne Taveras MD [address] [place] [address] [id number] PCP - General 10/26/11
--- OUTSIDE RECORDS SUMMARY | 2024-01-01 13:13 | XMS_ITS | Encounter Summary ---
Author Organization [facility] Address [address] [place] [address] Care Team Providers Care Revolving Inventory Clerk Name Role Phone Roxanne Taveras MD Primary Care Provider Encounter Details Date Type Department Care Team (Latest Contact Info) Description 01/25/2022 Lab Requisition [facility] - Main [place] [address] [place] [address] [id number] Boni Cervantes MD [address] [place] [phone] Dysphagia, pharyngoesophageal phase Social History Tobacco [...] management options, if applicable. 01/26/2022 9:32 EST [facility] Final Diagnosis A. DUODENUM, [...] mucosa with no diagnostic abnormality. 01/26/2022 9:32 [facility] Attestation By the signature below, the attending physician certifies that they have 1) personally conducted a gross and/or microscopic examination of the described specimen(s), and/or personally interpreted the results of laboratory testing of the described specimen(s), and 2) personally rendered or confirmed the above diagnosis. 01/26/2022 9:32 [facility] at 0932 Clinical History dysphagia with solid foods 01/26/2022 9:32 [facility] Gross Description A. The specimen is received in formalin labeled with ? Radha M. Harmony? and ? A? and ? duodenum? are 4 mucosal fragments that range in size from 0.1 x 0.1 x 0.2 cm up to 0.1 x 0.2 x 0.3 cm. The specimen is entirely submitted in 1 cassette. B. The specimen is received in formalin labeled with ? Radha M. David? and ? B? and ? duodenal bulb? [...] with ? Radha M. David? and ? E? and ? distal esophagus? [...] is entirely submitted in 1 cassette. Ena Rubioportia 01/25/2022 11:36 01/26/2022 9:32 EST [facility] Performing Lab [facility] 01/26/2022 9:32 EST [facility] Scanned Images 01/26/2022 9:32 EST [facility] Tissue ENTIRE ESOPHAGUS / [...] Unknown 01/24/2022 12:37 EST 01/25/2022 7:15 EST us Boni Cervantes MD PATHOLOGY ORDERABLES Final Result [facility] [address] [place] [address] documented in this encounter Visit Diagnoses Diagnosis Dysphagia, pharyngoesophageal phase documented in this encounter Care Teams Revolving Inventory Clerk Relationship Specialty Start Date End Date Roxanne Taveras MD [address] [place] [id number] PCP - General 10/26/11 documented as of this encounter
--- OUTSIDE RECORDS SUMMARY | 2024-01-01 13:13 | XMS_ITS | Referral Summary ---
Author Organization [facility] Address [address] [place] [address] Care Team Providers Care Aerospace Project Manager Name Role Phone Roxanne Taveras MD Primary Care Provider [phone] Social History Tobacco Use Types Packs/Day Years Used Date Smoking Tobacco: Never Assessed Comments Unknown Sex and Gender Information Value Date Recorded Sex Assigned at Not on file Legal Sex Female 18:11 EST Gender Identity Not on file Sexual Orientation Not on file Plan of Treatment Not on file [place] Care Teams Aerospace Project Manager Relationship Specialty Start Date End Date Roxanne Taveras MD [address] [place] [address] [id number] PCP - General 10/26/11
--- OUTSIDE RECORDS SUMMARY | 2024-01-01 13:14 | XMS_ITS | Encounter Summary ---
Author Organization [facility] Address [address] [place] [address] Care Team Providers Care Mirror Maker Name Role Phone Roxanne Taveras MD Primary Care Provider [phone] Encounter Details Date Type Department Care Team (Late st Contact Info) Description 11/29/2014 Results Only [facility] [phone] Tiffanie Martin PA-C [address] [place] [phone] Social History Tobacco Use Types Packs/Day Years [...] ? YANCYRADHA WILLIS ? Accession #: ? [id number] : ? 1975 (Age: 39) ??F ?Collect [...] Report Date: ??12/06/2014 10:24 End of Report [facility] 11/29/2014 12/01/2014 Tiffanie Martin PA-C PATHOLOGY ORDERABLES Fin al Result [facility] [address] [place] [address] documented in this encounter Visit Diagnoses Not on filedocumented in this encounter Care Teams Mirror Maker Relationship Specialty Start Date End Date Roxanne Taveras MD [address] [place] [address] PCP - General 10/26/11 documented as of this encounter
--- OUTSIDE RECORDS SUMMARY | 2024-01-01 13:14 | XMS_ITS | Encounter Summary ---
Author Organization [facility] Address [address] [place] [id number] Care Team Providers Care Vehicle Calibration Engineer Name Role Phone Unavailable Primary Care Provider Unavailabl e Encounter Details Date Type Department Care Team (Late st Contact Info) Description 09/25/2011 Results Only [facility] [address] [place] [address] Gayathri Pineda, [facility] [address] [place] [address] Social History Tobacco Use Types Packs/Day [...] ? YANCYRADHA WILLIS ? Accession #: ? [id number] : ? 1975 (Age: 36) ??F ?Collect Date: ? 09/25/2011 Location: ? [facility] ? Receive Date: ? 09/26/2011 Provider: ?GAYATHRI PINEDA SOLDERING MACHINE OPERATOR Copy to: ? Specimen/Source: ?Pap Test, Cervix/Endocervix, [...] End of Report [facility] 09/25/2011 09/26/2011 us Gayathri Pineda SOLDERING MACHINE OPERATOR PATHOLOGY ORDERABLES Final R esult [facility] [address] [place] [address] documented in this encounter Visit Diagnoses Not on filedocumented in this encounter
--- OUTSIDE RECORDS SUMMARY | 2024-01-01 13:14 | XMS_ITS | Encounter Summary ---
Author Organization [facility] Address [address] [place] [address] Care Team Providers Care Furniture Upholstery Mechanic Name Role Phone Roxanne Taveras MD Primary Care Provider [phone] Encounter Details Date Type Department Care Team (Late st Contact Info) Description 11/06/2021 Lab Requisition [facility] Pathology & Laboratory Medicine - [facility] [address] [place] [address] Nelly Mendez MD [address] [place] [address] [place] [phone] Encounter for other general examination [...] types, PCR Negative Negative 11/13/2021 15:19 EDT [facility] Comment:No E6 or E7 mRNA is detected from HPV types 16,18,31,33,35,39,45,51,52,56,58,59,66, and [address] contractor mediated amplification. Papanicolaou smear specimen (specimen) CERVIX UTERI STRUCTURE / Unknown 11/06/2021 10:50 EDT 11/10/2021 11:00 EDT us Nelly Mendez MD MICROBIOLOGY - GENERAL ORDER NAILA Final Result [facility] [address] [place] [address] * PAP TEST (11/06/2021 10:50 EDT) Specimens A. Cervix and/or Endocervix , ThinPrep Imaging System with Manual Evaluation 11/13/2021 15:19 [facility] Specimen Adequacy Satisfactory for Evaluation - transformation zone component present 11/13/2021 15:19 [facility] General Categorization Negative for intraepithelial lesion or malignancy 11/13/2021 15:19 [facility] Attestation . 11/13/2021 15:19 [facility] at 1519 Clinical History See below 11/14/19 15:19 [facility] HPV The result for the Human Papillomavirus (HPV) Detection-High Risk Types is Negative. No E6 or E7 mRNA is detected from HPV types 16,18,31,33,35,39 ,45,51,52,56,58,5 9,66, and [address] contractor mediated amplification.Regine ting was performed on specimen [id number] and was resulted on 11/13/2021 1517 EDT by LISET, LAB INSTRUMENT RESULTS IN 11/13/2021 15:19 T [facility] Performing Lab [facility] 11/13/2021 15:19 T [facility] Scanned Images 11/13/2021 15:19 EDT [facility] Papanicolaou smear specimen (specimen) CERVIX UTERI STRUCTURE / Unknown 11/06/2021 10:50 EDT 11/07/2021 12:50 EDT us Nelly Mendez MD PATHOLOGY ORDERABLES Final R esult Performing Organization Address City/[facility]/ZIP Co de Phone Number [facility] [address] [place] [address] * CHLAMYDIA/N. GONORRHOEAE AMPLIFIED RNA, THINPREP (11/06/2021 10:50 EDT) Neisseria gonorrhoeae Result Negative Negative 11/07/2021 14:45 EDT [facility] Chlamydia trachomatis Result Negative Negative 11/07/2021 14:45 EDT [facility] Papanicolaou smear specimen (specimen) CERVIX UTERI STRUCTURE / Unknown 11/06/2021 10:50 EDT 11/07/2021 8:39 EDT us Nelly Mendez MD MICROBIOLOGY - GENERAL ORDER NAILA Final Result Performing Organization Address City/[facility] Co de Phone Number [facility] [address] [place] [address] documented in this encounter Visit Diagnoses Diagnosis Encounter for other general examination documented in this encounter Care Teams Furniture Upholstery Mechanic Relationship Specialty Start Date End Date Roxanne Taveras MD [address] [place] [id number] PCP - General 10/26/11 documented as of this encounter
--- OUTSIDE RECORDS SUMMARY | 2024-01-01 13:14 | XMS_ITS | Encounter Summary ---
Author Organization [facility] Address [address] [place] [id number] Care Team Providers Care Dye Room Helper Name Role Phone Roxanne Taveras MD Primary Care Provider [phone] Encounter Details Date Type Department Care Team (Late st Contact Info) Description 07/14/2013 Results Only [facility] - [facility] [address] [place], [place] [address] Tiffanie Martin PA-C [address] [place] [phone] Social History Tobacco Use Types Packs/Day Years [...] ? YANCYRADHA WILLIS ? Accession #: ? [id number] : ? 1975 (Age: 38) ??F ?Collect [...] and electronically signed by: ? Vanessa Mooney, SHASHI(ASCP) ? Report Date: ??07/21/2013 14:36 End of Report [facility] 07/14/2013 07/15/2013 us Tiffanie Martin PA-C PATHOLOGY ORDERABLES Fin al Result [facility] [address] [place] [address] documented in this encounter Visit Diagnoses Not on filedocumented in this encounter Care Teams Dye Room Helper Relationship Specialty Start Date End Date Roxanne Taveras MD [address] [place] [address] PCP - General 10/26/11 documented as of this encounter
--- OUTSIDE RECORDS SUMMARY | 2024-01-01 13:14 | XMS_ITS | Encounter Summary ---
Author Organization [facility] Address [address] [place] [address] Care Team Providers Care Rail Flaw Detector Operator Name Role Phone Unavailable Primary Care Provider Unavailabl e Encounter Details Date Type Department Care Team (Late st Contact Info) Description 09/06/2005 Results Only [facility] [address] [place] [address] Roxanne Tavreas MD [address] [place], [place] [phone] Social History Tobacco Use Types Packs/Day Years [...] reading/interpreti ng unformatted reports. Name: ? YANCYRADHA ? Accession #: ? [id number] : ? 1975 (Age: 30) ??F ?Collect Date: ? 09/06/2005 Location: ? [facility] ? Receive Date: ? 09/10/2005 Provider: ?ROXANNE TAVERAS MD Copy to: ? Specimen/Source: ?ThinPrep Pap Test, Cervix/Endocervix, processed on ElasticsearchPrep Imaging System, with manual evaluation Last Menstrual Period: ? 04/23 Menstrual/Pregnanc y Status: ? SPECIMEN ADEQUACY ? Satisfactory for Evaluation - transformation zone component present GENERAL CATEGORIZATION ? Negative for Intraepithelial Lesion or Malignancy ? Document reviewed and electronically signed by: ? SHASHI Butts(ASCP) ? Report Date: ??09/12/2005 10:01 End of Report [facility] 09/06/2005 09/10/2005 us Roxanne Taveras MD PATHOLOGY ORDERABLES Final Resu lt [facility] [address] [place] [address] documented in this encounter Visit Diagnoses Not on filedocumented in this encounter
--- OUTSIDE RECORDS SUMMARY | 2024-01-01 13:14 | XMS_ITS | Encounter Summary ---
Author Organization [facility] Address [address] [place] [id number] Care Team Providers Care Local Driver Name Role Phone Unknown, Provider Primary Care Provider Unava ilable Encounter Details Date Type Department Care Team (Late st Contact Info) Description 10/23/2011 Results Only [facility] - [facility] ([facility] [place] [address], [place] [id number] Roxanne Taveras MD [address] [place] [address] Social History Tobacco Use Types [...] ? RADHA MATHIAS ? Accession #: ? [id number] ? : ? 1975 (Age: 36) ??F [...] moderate amount of cytoplasm. ??The melanocytes show digital media intern maturation. ??(Dr. Baker)/jean Document reviewed and electronically signed by: MADDY [...] Gross Description: ? Received in formalin labelled Radah Mathias and L side of neck is a 0.9 x 0.7 x 0.6 cm ovoid, plummer-brown, granular, friable, focally hairbearing papule. ??The margin is inked. ??The specimen is trisected and entirely submitted in a single cassette. ??(Noemi Page)/frieda End of Report [facility] 10/23/2011 10/24/2011 9:2 3 EDT us Roxanne Taveras MD PATHOLOGY ORDERABLES Final Resu lt Performing Organization Address City/State/[facility] Co de Phone Number [facility] [address] [place] [address] documented in this encounter Visit Diagnoses Not on filedocumented in this encounter Care Teams Local Driver Relationship Specialty Start Date End Date Unknown, Provider, PCP - General 10/24/11 10/25/11 documented as of this encounter
[2024-01-01 15:06] LABS: Anion Gap 7.2 mmol/L (3-11); BUN 8 mg/dL (7-18); CO2 28.8 mmol/L (21.0-32.0); Calcium 8.9 mg/dL (8.5-10.1); Calculated LDL 112 mg/dL (<100); Chloride 106 mmol/L (98-107); Cholesterol 207 mg/dL (<200); Estimated GFR 69.06 (mL/min/1.73m2); Glucose 109 mg/dL (74-106); HDL Cholesterol 41 mg/dL (40-60); Potassium 4.3 mmol/L (3.5-5.1); Sodium 142 mmol/L (136-145); Triglyceride 272 mg/dL (<150)
== END 2024-01-01 13:12 | disposition home or self-care (01) ==
LOC: NCHCN 13:11
PROVIDERS: Visit Provider Student in an Organized Health Care Education/Training Program
DX: E78.5 Hyperlipidemia, unspecified (principal); I10 Essential (primary) hypertension
CPT/HCPCS: 80048; 80061